=== PATIENT | female | born 1955 | race Caucasian/White ===

== ENCOUNTER → 2016-11-16 | Outpatient (CLI) | payer BC ==
[~2016-11-16] MED LIST: THYR90TA PO
[2016-11-16 13:39] LABS: BLOOD UREA NITROGEN 19 mg/dl (7-18); GLUCOSE 137 mg/dl (70-99)
[2016-11-16 13:40] LABS: ALT/SGPT 78 U/L (12-78); AST/SGOT 27 U/L (15-37); CALCIUM 10.1 mg/dl (8.5-10.1); CARBON DIOXIDE 28 mmol/L (21-32); CHLORIDE 101 mmol/L (98-107); POTASSIUM 4.1 mmol/L (3.5-5.1); SODIUM 138 mmol/L (136-145)
[2016-11-16 13:42] LABS: ALB/GLOB RATIO 0.7 (0.9-2); ALKALINE PHOSPHATASE 80 U/L (45-117)
== END | disposition home or self-care (01) ==
LOC: C.LABBC 12:00
PROVIDERS: ATTEND Internal Medicine Geriatric Medicine
DX: E11.9 Type 2 diabetes mellitus without complications (principal)

== ENCOUNTER → 2017-02-10 | Outpatient (CLI) | payer BC ==
[2017-02-10 17:39] LABS: BLOOD UREA NITROGEN 17 mg/dl (7-18); CREATININE 0.62 mg/dl (0.60-1.20); GLUCOSE 130 mg/dl (70-99)
[2017-02-10 17:40] LABS: ALKALINE PHOSPHATASE 54 U/L (45-117); ALT/SGPT 61 U/L (12-78); AST/SGOT 26 U/L (15-37); BUN/CREATININE RATIO 27.2 (10-20); CALCIUM 9.5 mg/dl (8.5-10.1); CARBON DIOXIDE 31 mmol/L (21-32); CHLORIDE 101 mmol/L (98-107); HDL CHOLESTEROL 59 mg/dl; SODIUM 138 mmol/L (136-145)
[2017-02-10 17:50] LABS: CHOLESTEROL 240 mg/dl (0-200); CHOLESTEROL/HDL RATIO 4.1; LDL CHOLESTEROL CALCULATED 144 mg/dl; TRIGLYCERIDES 183 mg/dl (0-150); VERY LOW DENSITY LIPOPROT CALC 37 mg/dl
[2017-02-11 07:06] LABS: ESTIMATED AVERAGE GLUCOSE 166 mg/dl; HA1C FLAG Normal (Normal)
== END | disposition home or self-care (01) ==
LOC: C.LABBC 13:54
PROVIDERS: ATTEND Physician Assistant Medical
DX: Z00.00 Encounter for general adult medical examination without abnormal findings (principal); E03.9 Hypothyroidism, unspecified; R74.0 Nonspecific elevation of levels of transaminase and lactic acid dehydrogenase [LDH]; E11.9 Type 2 diabetes mellitus without complications; E55.9 Vitamin D deficiency, unspecified

== ENCOUNTER → 2017-03-08 | Outpatient (CLI) | payer BC ==
--- NOTE | 2017-03-08 12:51 | DIAGNOSTIC IMAGING REPORT ---
CHEST 2 VIEWS ROUTINE CLINICAL HISTORY: J84.9 Interstitial lung [id number] COMPARISON STUDY: 03/25/2016 FINDINGS: The cardiac and mediastinal contours remain stable. There is interstitial thickening with a subpleural distribution. This remains unchanged. There is no acute parenchymal consolidation. There are no pleural effusions. There is no overt failure.[ IMPRESSION: Underlying interstitial lung disease, similar to the preceding examination. Electronically signed by: Sylvain Carver M.D. 03/08/2017 12:50 PM Dictated Date/Time: 03/08/2017 12:50 PM
== END | disposition home or self-care (01) ==
LOC: C.RADBC 12:34
PROVIDERS: ATTEND Internal Medicine
DX: J84.9 Interstitial pulmonary disease, unspecified (principal)

== ENCOUNTER → 2017-05-13 | Outpatient (CLI) | payer BC ==
[~2017-05-13] MED LIST changes: +OPTIRAY 320 IV PRN
--- NOTE | 2017-05-13 14:01 | DIAGNOSTIC IMAGING REPORT ---
(CHEST) THORAX WITH CLINICAL HISTORY: 62 years-old Female presenting with INTERSTITIAL LUNG DISEASE, cough. TECHNIQUE: Multidetector CT imaging of the chest was performed after the administration of intravenous contrast. IV contrast: 90 mL of Optiray 320. A dose lowering technique was used consistent with the principles of ALARA (as low as reasonably achievable). COMPARISON: Chest x-ray from 03/08/2017. CT DOSE (mGy.cm): The estimated cumulative dose is 319.76 mGy.cm. FINDINGS: Bench Scientist topogram: Unremarkable. On soft tissue windows, normal thyroid and thoracic inlet. Few subcentimeter mediastinal lymph nodes, possibly reactive. Atherosclerosis of the descending thoracic aorta. Normal heart size. Aortic valve and coronary artery calcification. No pericardial or pleural effusion. Hepatic steatosis suggested. Cholecystectomy clips. On lung windows, mild diffuse lung volume loss. Subpleural reticulation noted most prominently at the lung bases but also affecting the anterior portion of the lingula and right upper lobe to a significant degree. Bronchiectasis evident. On bone windows, degenerative changes of the spine. IMPRESSION: 1. Fibrotic lung disease in a subpleural distribution without convincing evidence of honeycombing at this time. Prominent groundglass opacities and subpleural sparing are lacking, although a fibrotic type nonspecific interstitial pneumonia is possible. Electronically signed by: Tray Vázquez M.D. 05/13/2017 1:59 PM Dictated Date/Time: 05/13/2017 1:52 PM
== END | disposition home or self-care (01) ==
LOC: C.CTS 13:05
PROVIDERS: ATTEND Physician Assistant
DX: J84.9 Interstitial pulmonary disease, unspecified (principal)

== ENCOUNTER → 2017-05-17 | Outpatient (CLI) | payer BC ==
[~2017-05-17] MED LIST changes: -OPTIRAY 320 IV PRN
[2017-05-23 18:17] LABS: ANTI-SS-A <1.0 NEG AI (<1.0 NEG); ANTI-SS-B <1.0 NEG AI (<1.0 NEG); ASPERGILLUS FUMIGATUS NEGATIVE (NEGATIVE); M. FAENI (S. RECTIVIRGULA) NEGATIVE (NEGATIVE); MYELOPEROXIDASE AB <1.0 AI (<1.0); PIGEON SERUM NEGATIVE (NEGATIVE); SACCHAROMONOSPORA VIRIDIS AB NEGATIVE (NEGATIVE); THERMOACTINOMYCES CANDIDUS NEGATIVE (NEGATIVE); THERMOACTINOMYCES VULGARIS NEGATIVE (NEGATIVE)
== END | disposition home or self-care (01) ==
LOC: C.LAB1850 15:45
PROVIDERS: ATTEND Physician Assistant
DX: J84.9 Interstitial pulmonary disease, unspecified (principal)

== ENCOUNTER → 2017-08-09 | Outpatient (CLI) | payer BC ==
[2017-08-09 14:26] LABS: BLOOD UREA NITROGEN 13 mg/dl (7-18); BUN/CREATININE RATIO 22.7 (10-20); CALCIUM 9.5 mg/dl (8.5-10.1); CARBON DIOXIDE 30 mmol/L (21-32); CHLORIDE 103 mmol/L (98-107); CREATININE 0.58 mg/dl (0.60-1.20); GLUCOSE 119 mg/dl (70-99); POTASSIUM 4.2 mmol/L (3.5-5.1); SODIUM 139 mmol/L (136-145)
[2017-08-09 14:36] LABS: CHOLESTEROL 231 mg/dl (0-200); CHOLESTEROL/HDL RATIO 4.4; HDL CHOLESTEROL 52 mg/dl; LDL CHOLESTEROL CALCULATED 153 mg/dl; THYROID STIMULATING HORMONE 0.263 uIu/ml (0.300-4.500); TRIGLYCERIDES 131 mg/dl (0-150); VERY LOW DENSITY LIPOPROT CALC 26 mg/dl
[2017-08-09 14:41] LABS: CREATININE RANDOM URINE 70.7 mg/dl
[2017-08-09 14:52] LABS: RATIO 10.9 mcg/mg (0-30.0)
[2017-08-10 07:36] LABS: ESTIMATED AVERAGE GLUCOSE 154 mg/dl; HA1C FLAG Normal (Normal)
== END | disposition home or self-care (01) ==
LOC: C.LABBC 11:03
PROVIDERS: ATTEND Physician Assistant Medical
DX: E11.9 Type 2 diabetes mellitus without complications (principal); E55.9 Vitamin D deficiency, unspecified; E03.9 Hypothyroidism, unspecified; E78.5 Hyperlipidemia, unspecified

== ENCOUNTER → 2018-04-05 | Outpatient (CLI) | payer OTHER | END | disposition home or self-care (01) | LOC: C.LABBC 13:02 | PROVIDERS: ATTEND Physician Assistant Medical | DX: E03.9 Hypothyroidism, unspecified (principal) ==

== ENCOUNTER → 2018-05-09 | Outpatient (CLI) | payer BC ==
[2018-05-09 14:03] LABS: HEMOGLOBIN A1C 6.7 % (4.5-5.6)
[2018-05-09 14:34] LABS: ALBUMIN 3.9 gm/dl (3.4-5.0); ALKALINE PHOSPHATASE 64 U/L (45-117); ALT/SGPT 48 U/L (12-78); AST/SGOT 21 U/L (15-37); BLOOD UREA NITROGEN 9 mg/dl (7-18); CALCIUM 9.4 mg/dl (8.5-10.1); CARBON DIOXIDE 28 mmol/L (21-32); CHOLESTEROL 223 mg/dl (0-200); CREATININE 0.57 mg/dl (0.60-1.20); GLUCOSE 112 mg/dl (70-99); LDL CHOLESTEROL CALCULATED 151 mg/dl; POTASSIUM 4.3 mmol/L (3.5-5.1); SODIUM 137 mmol/L (136-145); TOTAL PROTEIN 8.1 gm/dl (6.4-8.2)
== END | disposition home or self-care (01) ==
LOC: C.LABBC 11:06
PROVIDERS: ATTEND Physician Assistant Medical
DX: E03.9 Hypothyroidism, unspecified (principal); E78.5 Hyperlipidemia, unspecified; K76.0 Fatty (change of) liver, not elsewhere classified; E11.9 Type 2 diabetes mellitus without complications; E55.9 Vitamin D deficiency, unspecified

== ENCOUNTER 2020-09-03 14:33 | Inpatient (IN) ==
[2020-09-03] MEDS ORDERED: ALBUTEROL HFA 8 GM INHALER INH STA (15:01)
[2020-09-03] MEDS ORDERED: DEXAMETHASONE SOD INJ 10 MG/ML VIAL IV ONE (15:01)
--- NOTE | 2020-09-03 15:06 | Emergency Department Note ---
Impression & Plan Acute hypoxemic respiratory failure, Acute exacerbation of bronchiectasis, Pneumonia ED Provider Note CHIEF COMPLAINT: Shortness of breath HISTORY OF PRESENTING ILLNESS: This is a 65-year-old female who presents to the emergency department by private vehicle with a family member with complaint of shortness of breath and low oxygen saturations for the past 2 days. The patient reports a history of pulmonary fibrosis and is followed by pulmonology here. She states that she has 2 L of oxygen at home to use as needed during activities and during sleep at night, but even using her oxygen during the day she has been having oxygen saturations in the 70s and 80s at home. She states that she had a chest x-ray performed this morning as an outpatient and while she was there they noted that her oxygen levels were very low and told her to go to the ER. On arrival the patient was noted to be 71% on room air and her oxygen concentrator had run out while she was on her way here. She states she has been feeling more short of breath than usual. She denies a cough or hemoptysis. She denies any history of pulmonary embolism. She is not on blood thinner medications. She denies any chest pain, palpitations, dizziness or syncope. She states that she started feeling sick a little over a month ago, her uppers edge burnisher put her on doxycycline and a course of steroids, which she completed about 4 weeks ago. She states she felt improved, but never felt like she got completely back to normal, and started to feel worse again this past weekend. She denies any pain and rates her pain level 0/10. She denies any known exposures to COVID-19 and denies any symptoms of congestion, sore throat, loss of taste or smell, nausea, vomiting, diarrhea, or urinary symptoms. REVIEW OF SYSTEMS: A complete 10 point review of systems was reviewed with the patient with pertinent positives and negatives as per history of present illness. All else were negative. PAST MEDICAL HISTORY: Idiopathic pulmonary fibrosis, type 2 diabetes, hypothyroidism, hyperlipidemia, obstructive sleep apnea SOCIAL HISTORY: Lives at home with family, she is a former smoker and also uses medical marijuana ALLERGIES: No known drug allergies PHYSICAL EXAM: CONSTITUTIONAL: Pleasant and cooperative. Nontoxic-appearing and in no acute distress. Mildly dehydrated, but otherwise well appearing and well nourished. HEENT: Normocephalic, atraumatic. PERRL, EOMI. TMs normal. Pharynx normal. Tacky mucous membranes. NECK: Supple, full active range of motion without discomfort. No cervical adenopathy. RESPIRATORY: Diminished bilaterally with diffuse coarse rhonchi and scant wheezing, no stridor. Mildly tachypneic with some accessory muscle use. Equal expansion bilaterally. CARDIOVASCULAR: Tachycardic, regular rhythm with no murmurs, rubs or gallops. Normal peripheral perfusion, 2+ distal pulses in all 4 extremities. No pitting edema. GASTROINTESTINAL: Soft, nontender, nondistended. No palpable masses or HSM. Bowel sounds present in all quadrants. No CVA tenderness bilaterally. MUSCULOSKELETAL: Full range of motion of all joints without discomfort. INTEGUMENTARY: No rash or other significant dermatologic conditions noted. NEUROLOGIC: Alert and oriented X 4 with normal affect. Normal strength and sen sation in all 4 extremities. Normal speech. Normal gait observed. ED COURSE AND MEDICAL DECISION MAKING: CC: Patient presenting with complaint of shortness of breath DIFFERENTIAL DIAGNOSIS: Includes, but not limited to viral URI, bronchitis, pneumonia, pulmonary fibrosis, influenza, COVID-19, pulmonary embolism, acute coronary syndrome, pneumothorax, hemothorax, pulmonary edema, among others. INTERPRETATION OF LABS: Leukocytosis with left shift, no anemia, normal platelets, no significant electrolyte abnormalities, normal renal function, normal liver enzymes. Troponin undetectable. D-dimer is elevated, coagulation factors otherwise within normal limits. VBG within normal limits. Lactate normal. Procalcitonin normal. UA shows 4+ ketones, negative for infection. Influenza A/B is negative. SARS-CoV-2 RNA test is negative. IMAGING: CHEST CTA for PULMONARY ARTERIES CT DOSE: 350.47 mGy.cm HISTORY: Dyspnea, hypoxia, hx pulm fibrosis TECHNIQUE: Multiaxial CT images of the chest were performed following the intravenous administration of contrast to evaluate the pulmonary arteries. Maximal intensity projection images were also obtained. A dose lowering technique was utilized adhering to the principles of ALARA. COMPARISON STUDY: Chest CT 03/18/2020. FINDINGS: Normal caliber thoracic aorta with no evidence for dissection. The heart is normal in size. No pleural or pericardial effusions. Moderate coronary artery calcifications are noted. Dilated main pulmonary artery consistent with premenstrual hypertension. This measures up to 3.7 cm in diameter. No filling de fects within the pulmonary arteries to suggest pulmonary embolus. Mild mediastinal lymphadenopathy has progressed. There is also bilateral hilar lymphadenopathy which has increased in size. Dominant left hilar lymph node measures 1.6 cm, previous measuring 1.1 cm. Hepatic steatosis. The visualized s pleen is unremarkable. Normal caliber esophagus. No pleural or pericardial effusions. No suspicious lytic or blastic osseous lesions. No pneumothorax. The central airways are patent. Diffuse bronchiectasis persists. Subpleural reticulation and low lung volumes consistent with the patient's known pulmonary fibrosis. There is been interval progression of the near diffuse groundglass airspace opacities most pronounced within the lower lung zones. IMPRESSION: 1. No evidence for pulmonary embolus. 2. Significant progression of the near diffuse groundglass airspace opacities most pronounced within the lower lung zones. This is concerning for superimposed acute pneumonitis on the background of chronic fibrotic change. A viral pneumonia would be the diagnosis of exclusion. 3. Interval progression of the mediastinal and bilateral hilar lymphadenopathy. This may be reactive to the suspected pneumonia. EKG: Shows sinus tachycardia with a rate of 112 bpm, normal intervals, no ST depression or elevation, no ectopy, no significant change when compared to previous EKG from 03/17/2016 by my interpretation. MEDICATION RECONCILIATION: I attest that I have personally reviewed the patient's current medication list. INITIAL VITAL SIGNS REVIEW: I reviewed the patient's initial vital signs and interpret them as follows: T: Afebrile; BP: Normotensive; HR: Tachycardic; RR: Tachypneic; Pulse Ox: Hypoxic on room air. MDM SUMMARY: Patient was evaluated at bedside, history and physical exam performed. Patient is alert and oriented, in no acute distress, resting calmly in the stretcher. She does appear to have mild tachypnea and is noted to be hypoxic on arrival, she is currently 96% on 5 L nasal cannula and she states her breathing is more comfortable now that she is resting. Coarse lung sounds throughout, diminished in the bases. She denies any chest pain, fevers or chills. She denies any concerns for COVID- 19. Cardiac monitoring: An order was placed for continuous cardiac monitoring. The monitor shows a rate of 122 bpm with sinus tachycardia rhythm. EKG reviewed at bedside noting sinus tachycardia without any ischemic changes. I did review the patient's chart noting a chest x-ray from earlier today, which shows slight interval increase in her pulmonary fibrosis but no definite consolidation to suggest pneumonia. Orders were placed for labs including CBC, CMP, coagulation factors, troponin, D-dimer, blood cultures x2, lactate, procalcitonin, influenza A/B and COVID-19, VBG, UA, IV fluid bolus for hydration, albuterol inhaler, IV Decadron 6 mg, and CTA of the chest to evaluate for possible PE versus pneumonia versus worsening pulmonary fibrosis. Patient discussed with Dr. Mandel, who agrees with my assessment, plan, and disposition. Labs and imaging reviewed as above, labs are notable for leukocytosis with a left shift and an elevated D-dimer. VBG was within normal limits. Lactate and procalcitonin were negative. Influenza and COVID-19 testing were negative. CTA of the chest reviewed as above, no PE, but significant progression of airspace opacities concerning for an acute pneumonia. I discussed the patient with Perla, ED pharmacist, and decision was made together to place the patient on IV Rocephin and azithromycin initially for coverage of pneumonia. I spoke on the phone with Dr. Bettencourt, [facility] Hospitalist, who agrees to evaluate the patient for admission. Patient reassessed multiple times throughout ED stay, she has remained hemodynamically stable and afebrile, tachycardia is downtrending after the fluids and she has been weaned down to 3 L nasal cannula. She still is slightly tachypneic. The patient was updated on all results and plan for admission, she verbalized understanding and was agreeable to this plan. The patient was stable at time of admission. The chart was completed utilizing [employer] Speech voice recognition software. Grammatical errors, random word insertions, pronoun errors, and incomplete sentences are an occasional consequence of this system due to software limitations, ambient noise, and hardware issues. Any formal questions or concerns about the content, text, or information contained within the body of this dictation should be directly addressed to the nurse practitioner for clarification. Past Med/Surg History Medical History (Updated 09/03/20 @ 21:41 by DEONDRE Brar) Allergic rhinitis Cervical cancer screening Diabetes mellitus Elevated transaminase level Encounter for routine gynecological examination Fatty liver Hyperlipidemia Hypothyroidism Interstitial lung disease Obstructive sleep apnea Vitamin D deficiency Surgical History History of appendectomy (02/2016) Dr. Shahid History of cataract surgery History of section History of dilation and curettage History of laparoscopic cholecystectomy Hx of right hemicolectomy Family History Mother , age 62 Adenomatous polyposis coli Hyperlipidemia COPD (chronic obstructive pulmonary disease) Father , age 61 Atherosclerosis Lung cancer Brother Myocardial infarction Hyperlipidemia Diabetes FHx: mental illness Sister Cystic fibrosis Stroke Heart valve replaced Osteoporosis Social History (Updated 03/12/20 @ 14:13 by Gillian Avilez) Smoking Status: Former smoker Hx Alcohol Use: No Hx Substance Use: Yes (medical marijuana card) Preferred Language: Welsh Communication Ability: Effective Visual Impairment: Limited Hearing Ability: Normal Relay Motorman Required: No marital status: Current Living Situation: Spouse current occupational status: retired Feels Safe at Home: Yes Diet Comment: grain free Dental Care, Regularly: Yes Physical Activity Frequency: 5-6 Times per Week Seatbelt Use: always Sunscreen Use: Yes Allergies Allergies Allergy/AdvReac Type Severity Reaction Status Date / Time GRAINS Allergy Intermediate hives Uncoded 09/03/20 19:22 Home Meds Home Medications Medication Instructions Recorded Confirmed calcium polycarbophil 625 mg tablet 650 mg PO DAILY tab 01/29/19 09/03/20 guaifenesin 600 mg tablet, 600 mg PO DAILY tab 01/29/19 09/03/20 extended release 12 hr glucosamine sulfate 500 mg tablet 500 mg PO BID 02/19/19 09/03/20 magnesium 200 mg tablet 200 mg PO DAILY 02/19/19 09/03/20 turmeric 400 mg capsule 400 mg PO DAILY cap 02/19/19 09/03/20 alpha lipoic acid 300 mg capsule 300 mg PO DAILY cap 05/01/19 09/03/20 calcium carbonate 600 mg calcium 600 mg PO DAILY tab 05/01/19 09/03/20 (1,500 mg) tablet coenzyme Q10 100 mg capsule 100 mg PO DAILY cap 05/01/19 09/03/20 evening primrose oil-linoleic 1 cap PO DAILY cap 05/01/19 09/03/20 acid-gamolenic acid 1,000 mg capsule omega-3 acid ethyl esters 1 gram 1 cap PO DAILY cap 05/01/19 09/03/20 capsule cholecalciferol (vitamin D3) 50 4,000 units PO DAILY cap 07/11/19 09/03/20 mcg (2,000 unit) capsule triamcinolone acetonide 55 mcg 2 sprays INTRANASAL DAILY ml 07/11/19 09/03/20 nasal spray aerosol cetirizine [Zyrtec] 10 mg PO DAILY 09/03/20 09/03/20 glutamine 500 mg PO DAILY 09/03/20 09/03/20 lysine HCl 500 mg PO DAILY 09/03/20 09/03/20 sodium chloride 1 ml INHALATION TID 09/03/20 09/03/20 Previous Rx's Medication Instructions Recorded albuterol sulfate 90 mcg/actuation 1 puffs INH Q6H PRN #8.5 gm 02/19/20 aerosol inhaler thyroid (pork) 90 mg tablet 90 mg PO DAILY #90 tab 02/27/20 nintedanib 150 mg capsule 150 mg PO Q12H #60 cap 03/31/20 montelukast 10 mg tablet 10 mg PO QPM #90 tab 06/03/20 fluticasone furoate 200 1 inh INH DAILY #90 ea 07/14/20 mcg-vilanterol 25 mcg/dose inhalation powder ipratropium 0.5 mg-albuterol 3 mg 3 ml INH Q4H PRN #180 ml 08/01/20 (2.5 mg base)/3 mL nebulization soln doxycycline hyclate 100 mg capsule 100 mg PO BID #20 cap 09/03/20 prednisone 10 mg tablet See Rx Instructions PO DAILY #20 09/03/20 tab Results & Data (ED) Vital Signs Vital Signs - 24 hr 09/03/20 14:46 09/03/20 14:48 09/03/20 14:52 Temperature 37.1 C Temperature Source Oral Pulse Rate 124 H 109 H Pulse Rate from SpO2 Sensor 109 H Respiratory Rate 28 H 29 H Respiratory Effort / Characteristics Accessory Muscle Use Short of Breath Respiratory Depth Respiratory Pattern Blood Pressure 138/76 138/76 Blood Pressure Mean 96 100 Blood Pressure Position Sitting Pulse Oximetry 83 L 97 96 Oxygen Delivery Method Nasal Cannula Nasal Cannula Nasal Cannula Oxygen Flow Rate 4 5 5 Sepsis Recent Fever Within 48 Hours No Sepsis New/Unexplained Change in Mental Status No Sepsis Action Taken by Nursing No Action Required 09/03/20 15:30 09/03/20 15:45 09/03/20 16:01 Temperature Temperature Source Pulse Rate 110 H Pulse Rate from SpO2 Sensor 110 H Respiratory Rate 24 Respiratory Effort / Characteristics Non-Labored Respiratory Depth Normal Respiratory Pattern Regular Blood Pressure 124/58 L Blood Pressure Mean 80 Blood Pressure Position Pulse Oximetry 100 94 Oxygen Delivery Method Nasal Cannula Nasal Cannula Nasal Cannula Oxygen Flow Rate 5 4 3 Sepsis Recent Fever Within 48 Hours Sepsis New/Unexplained Change in Mental Status Sepsis Action Taken by Nursing 09/03/20 16:06 09/03/20 16:30 09/03/20 17:00 Temperature Temperature Source Pulse Rate 115 H 112 H 107 H Pulse Rate from SpO2 Sensor 114 H 112 H 107 H Respiratory Rate 26 H 29 H 33 H Respiratory Effort / Characteristics Respiratory Depth Respiratory Pattern Blood Pressure 124/58 L 119/66 116/73 Blood Pressure Mean 99 83 81 Blood Pressure Position Pulse Oximetry 97 99 98 Oxygen Delivery Method Oxygen Flow Rate Sepsis Recent Fever Within 48 Hours Sepsis New/Unexplained Change in Mental Status Sepsis Action Taken by Nursing 09/03/20 18:00 09/03/20 18:30 Temperature Temperature Source Pulse Rate 100 H 103 H Pulse Rate from SpO2 Sensor 100 H 103 H Respiratory Rate 30 H 25 H Respiratory Effort / Characteristics Respiratory Depth Respiratory Pattern Blood Pressure 116/73 128/69 Blood Pressure Mean 77 99 Blood Pressure Position Pulse Oximetry 97 97 Oxygen Delivery Method Oxygen Flow Rate 3 Sepsis Recent Fever Within 48 Hours Sepsis New/Unexplained Change in Mental Status Sepsis Action Taken by Nursing Laboratory Data Result diagrams: 09/03/20 15:27 09/03/20 15:27 Lab Results 09/03/20 09/03/20 09/03/20 Range/Units 15:21 15:21 15:21 WBC (4.8-10.8) K/uL RBC (4.2-5.4) M/uL Hgb (12.0-16.0) g/dL Hct (37-47) % MCV (80-100) fL MCH (25-34) pg MCHC (32-36) g/dL RDW Std Deviation (36.4-46.3) fL RDW Coeff of Ivanna (11.5-14.5) % Plt Count (130-400) K/uL MPV (7.4-10.4) fL Immature Gran % (Auto) % Neut % (Auto) % Lymph % (Auto) % Eddy % (Auto) % Eos % (Auto) % Baso % (Auto) % Neut # (Auto) (1.4-6.5) K/uL Lymph # (Auto) (1.2-3.4) K/uL Eddy # (Auto) (0.11-0.59) K/uL Eos # (Auto) (0-0.5) K/uL Baso # (Auto) (0-0.2) K/uL Immature Gran # (Auto) (0.00-0.02) K/uL PT (9.0-12.0) Seconds INR (0.9-1.1) APTT (21.0-31.0) Seconds PTT Ratio D-Dimer (0-500) ug/L FEU VBG pH (7.36-7.41) VBG pCO2 (38-50) mmHg VBG pO2 mmHg VBG HCO3 mmol/L VBG O2 Saturation % VBG Base Excess mEq/L Barometric Pressure mm/Hg Sodium (136-145) mmol/L Potassium (3.5-5.1) mmol/L Chloride (98-107) mmol/L Carbon Dioxide (21-32) mmol/L Anion Gap (3-11) BUN (7-18) mg/dl Creatinine (0.6-1.2) mg/dl Est Cr Clr Drug Dosing ml/min Est GFR ( Amer) Est GFR (Non-Af Amer) BUN/Creatinine Ratio (10-20) Glucose (70-99) mg/dl Lactate (0.4-2.0) mmol/L Calcium (8.5-10.1) mg/dl Total Bilirubin (0.2-1) mg/dl AST (15-37) U/L ALT (12-78) U/L Alkaline Phosphatase (45-117) U/L Troponin I (0-0.045) ng/ml Total Protein (6.4-8.2) gm/dl Albumin (3.4-5.0) gm/dl Globulin (2.5-4.0) gm/dl Albumin/Globulin Ratio (0.9-2) Procalcitonin (0-0.5) ng/ml Urine Color Urine Appearance (Clear) Urine pH (4.5-7.5) Ur Specific [place] (1.000-1.030) Urine Protein (Negative) Urine Glucose (UA) (Negative) Urine Ketones (Negative) Urine Blood (Negative) Urine Nitrite (Negative) Urine Bilirubin (Negative) Urine Urobilinogen (Negative) Ur Leukocyte Esterase (Negative) Urine WBC (Auto) (0-5) /hpf Urine RBC (Auto) (0-4) /hpf U Hyaline Cast (Auto) (0-5) /lpf U Epithel Cells (Auto) (0-5) /lpf Urine Bacteria (Auto) (Negative) COVID-19 Eval [facility] Influ A Molecular Assay Negative (Negative) Influ B Molecular Assay Negative (Negative) SARS-CoV-2, RNA, NAAT NEGATIVE (NEGATIVE) 09/03/20 09/03/20 09/03/20 Range/Units 15:27 15:27 15:27 WBC 12.76 H (4.8-10.8) K/uL RBC 4.93 (4.2-5.4) M/uL Hgb 14.0 (12.0-16.0) g/dL Hct 42.5 (37-47) % MCV 86.2 (80-100) fL MCH 28.4 (25-34) pg MCHC 32.9 (32-36) g/dL RDW Std Deviation 44.4 (36.4-46.3) fL RDW Coeff of Ivanna 14.0 (11.5-14.5) % Plt Count 364 (130-400) K/uL MPV 9.8 (7.4-10.4) fL Immature Gran % (Auto) 0.2 % Neut % (Auto) 79.9 % Lymph % (Auto) 11.1 % Eddy % (Auto) 7.4 % Eos % (Auto) 1.2 % Baso % (Auto) 0.2 % Neut # (Auto) 10.20 H (1.4-6.5) K/uL Lymph # (Auto) 1.42 (1.2-3.4) K/uL Eddy # (Auto) 0.95 H (0.11-0.59) K/uL Eos # (Auto) 0.15 (0-0.5) K/uL Baso # (Auto) 0.02 (0-0.2) K/uL Immature Gran # (Auto) 0.02 (0.00-0.02) K/uL PT 11.6 (9.0-12.0) Seconds INR 1.1 (0.9-1.1) APTT 31.0 (21.0-31.0) Seconds PTT Ratio 1.1 D-Dimer 650 H* (0-500) ug/L FEU VBG pH (7.36-7.41) VBG pCO2 (38-50) mmHg VBG pO2 mmHg VBG HCO3 mmol/L VBG O2 Saturation % VBG Base Excess mEq/L Barometric Pressure mm/Hg Sodium 136 (136-145) mmol/L Potassium 4.2 (3.5-5.1) mmol/L Chloride 100 (98-107) mmol/L Carbon Dioxide 31 (21-32) mmol/L Anion Gap 5.0 (3-11) BUN 10 (7-18) mg/dl Creatinine 0.63 (0.6-1.2) mg/dl Est Cr Clr Drug Dosing 86.9 ml/min Est GFR ( Amer) 107.6 Est GFR (Non-Af Amer) 92.8 BUN/Creatinine Ratio 16.1 (10-20) Glucose 134 H (70-99) mg/dl Lactate (0.4-2.0) mmol/L Calcium 9.3 (8.5-10.1) mg/dl Total Bilirubin 0.5 (0.2-1) mg/dl AST 24 (15-37) U/L ALT 26 (12-78) U/L Alkaline Phosphatase 49 (45-117) U/L Troponin I < 0.015 (0-0.045) ng/ml Total Protein 8.4 H (6.4-8.2) gm/dl Albumin 3.5 (3.4-5.0) gm/dl Globulin 4.9 H (2.5-4.0) gm/dl Albumin/Globulin Ratio 0.7 L (0.9-2) Procalcitonin (0-0.5) ng/ml Urine Color Urine Appearance (Clear) Urine pH (4.5-7.5) Ur Specific [place] (1.000-1.030) Urine Protein (Negative) Urine Glucose (UA) (Negative) Urine Ketones (Negative) Urine Blood (Negative) Urine Nitrite (Negative) Urine Bilirubin (Negative) Urine Urobilinogen (Negative) Ur Leukocyte Esterase (Negative) Urine WBC (Auto) (0-5) /hpf Urine RBC (Auto) (0-4) /hpf U Hyaline Cast (Auto) (0-5) /lpf U Epithel Cells (Auto) (0-5) /lpf Urine Bacteria (Auto) (Negative) COVID-19 Eval Order Influ A Molecular Assay (Negative) Influ B Molecular Assay (Negative) SARS-CoV-2, RNA, NAAT (NEGATIVE) 09/03/20 09/03/20 09/03/20 Range/Units 15:27 15:27 16:00 WBC (4.8-10.8) K/uL RBC (4.2-5.4) M/uL Hgb (12.0-16.0) g/dL Hct (37-47) % MCV (80-100) fL MCH (25-34) pg MCHC (32-36) g/dL RDW Std Deviation (36.4-46.3) fL RDW Coeff of Ivanna (11.5-14.5) % Plt Count (130-400) K/uL MPV (7.4-10.4) fL Immature Gran % (Auto) % Neut % (Auto) % Lymph % (Auto) % Eddy % (Auto) % Eos % (Auto) % Baso % (Auto) % Neut # (Auto) (1.4-6.5) K/uL Lymph # (Auto) (1.2-3.4) K/uL Eddy # (Auto) (0.11-0.59) K/uL Eos # (Auto) (0-0.5) K/uL Baso # (Auto) (0-0.2) K/uL Immature Gran # (Auto) (0.00-0.02) K/uL PT (9.0-12.0) Seconds INR (0.9-1.1) APTT (21.0-31.0) Seconds PTT Ratio D-Dimer (0-500) ug/L FEU VBG pH 7.40 (7.36-7.41) VBG pCO2 49 (38-50) mmHg VBG pO2 35 mmHg VBG HCO3 30 mmol/L VBG O2 Saturation 65.5 % VBG Base Excess 3.8 mEq/L Barometric Pressure 735.5 mm/Hg Sodium (136-145) mmol/L Potassium (3.5-5.1) mmol/L Chloride (98-107) mmol/L Carbon Dioxide (21-32) mmol/L Anion Gap (3-11) BUN (7-18) mg/dl Creatinine (0.6-1.2) mg/dl Est Cr Clr Drug Dosing ml/min Est GFR ( Amer) Est GFR (Non-Af Amer) BUN/Creatinine Ratio (10-20) Glucose (70-99) mg/dl Lactate (0.4-2.0) mmol/L Calcium (8.5-10.1) mg/dl Total Bilirubin (0.2-1) mg/dl AST (15-37) U/L ALT (12-78) U/L Alkaline Phosphatase (45-117) U/L Troponin I (0-0.045) ng/ml Total Protein (6.4-8.2) gm/dl Albumin (3.4-5.0) gm/dl Globulin (2.5-4.0) gm/dl Albumin/Globulin Ratio (0.9-2) Procalcitonin < 0.05 (0-0.5) ng/ml Urine Color Dark Yellow Urine Appearance Clear (Clear) Urine pH 5.0 (4.5-7.5) Ur Specific [place] 1.029 (1.000-1.030) Urine Protein 1+ H (Negative) Urine Glucose (UA) Negative (Negative) Urine Ketones 4+ H (Negative) Urine Blood Negative (Negative) Urine Nitrite Negative (Negative) Urine Bilirubin Negative (Negative) Urine Urobilinogen Negative (Negative) Ur Leukocyte Esterase Negative (Negative) Urine WBC (Auto) 1-5 (0-5) /hpf Urine RBC (Auto) 0-4 (0-4) /hpf U Hyaline Cast (Auto) 5-10 H (0-5) /lpf U Epithel Cells (Auto) 20-30 H (0-5) /lpf Urine Bacteria (Auto) Negative (Negative) COVID-19 Eval Order Influ A Molecular Assay (Negative) Influ B Molecular Assay (Negative) SARS-CoV-2, RNA, NAAT (NEGATIVE) 09/03/20 Range/Units 17:35 WBC (4.8-10.8) K/uL RBC (4.2-5.4) M/uL Hgb (12.0-16.0) g/dL Hct (37-47) % MCV (80-100) fL MCH (25-34) pg MCHC (32-36) g/dL RDW Std Deviation (36.4-46.3) fL RDW Coeff of Ivanna (11.5-14.5) % Plt Count (130-400) K/uL MPV (7.4-10.4) fL Immature Gran % (Auto) % Neut % (Auto) % Lymph % (Auto) % Eddy % (Auto) % Eos % (Auto) % Baso % (Auto) % Neut # (Auto) (1.4-6.5) K/uL Lymph # (Auto) (1.2-3.4) K/uL Eddy # (Auto) (0.11-0.59) K/uL Eos # (Auto) (0-0.5) K/uL Baso # (Auto) (0-0.2) K/uL Immature Gran # (Auto) (0.00-0.02) K/uL PT (9.0-12.0) Seconds INR (0.9-1.1) APTT (21.0-31.0) Seconds PTT Ratio D-Dimer (0-500) ug/L FEU VBG pH (7.36-7.41) VBG pCO2 (38-50) mmHg VBG pO2 mmHg VBG HCO3 mmol/L VBG O2 Saturation % VBG Base Excess mEq/L Barometric Pressure mm/Hg Sodium (136-145) mmol/L Potassium (3.5-5.1) mmol/L Chloride (98-107) mmol/L Carbon Dioxide (21-32) mmol/L Anion Gap (3-11) BUN (7-18) mg/dl Creatinine (0.6-1.2) mg/dl Est Cr Clr Drug Dosing ml/min Est GFR ( Amer) Est GFR (Non-Af Amer) BUN/Creatinine Ratio (10-20) Glucose (70-99) mg/dl Lactate 0.7 (0.4-2.0) mmol/L Calcium (8.5-10.1) mg/dl Total Bilirubin (0.2-1) mg/dl AST (15-37) U/L ALT (12-78) U/L Alkaline Phosphatase (45-117) U/L Troponin I (0-0.045) ng/ml Total Protein (6.4-8.2) gm/dl Albumin (3.4-5.0) gm/dl Globulin (2.5-4.0) gm/dl Albumin/Globulin Ratio (0.9-2) Procalcitonin (0-0.5) ng/ml Urine Color Urine Appearance (Clear) Urine pH (4.5-7.5) Ur Specific [place] (1.000-1.030) Urine Protein (Negative) Urine Glucose (UA) (Negative) Urine Ketones (Negative) Urine Blood (Negative) Urine Nitrite (Negative) Urine Bilirubin (Negative) Urine Urobilinogen (Negative) Ur Leukocyte Esterase (Negative) Urine WBC (Auto) (0-5) /hpf Urine RBC (Auto) (0-4) /hpf U Hyaline Cast (Auto) (0-5) /lpf U Epithel Cells (Auto) (0-5) /lpf Urine Bacteria (Auto) (Negative) COVID-19 Eval Order Influ A Molecular Assay (Negative) Influ B Molecular Assay (Negative) SARS-CoV-2, RNA, NAAT (NEGATIVE) Administered Medications Albuterol (Albut/Ipratrop 3mg/0.5mg Neb 3 Ml Vial) 3 ml NEB Q4R [facility] Stop: 10/03/20 22:59 Last Admin: 09/03/20 21:36 Dose: 3 ml Documented by: Discontinued Medications Albuterol (Albuterol Hfa 8 Gm Inhaler) 4 puffs INH NOW STA Stop: 09/03/20 15:02 Last Admin: 09/03/20 16:00 Dose: 4 puffs Documented by: [id number] Albuterol (Albut/Ipratrop 3mg/0.5mg Neb 3 Ml Vial) Confirm Administered Dose 3 ml .ROUTE .STK-MED ONE Stop: 09/03/20 21:34 Last Admin: 09/03/20 21:40 Dose: Not Given Documented by: Dexamethasone (Dexamethasone Sod Inj 10 Mg/Ml Vial) 6 mg IV NOW ONE Stop: 09/03/20 15:02 Last Admin: 09/03/20 16:00 Dose: 6 mg Documented by: [id number] Sodium Chloride (Nss) 500 mls @ 999 mls/hr IV .Q31M [facility] Stop: 09/03/20 15:45 Last Infusion: 09/03/20 16:13 Dose: 0 mls/hr Documented by: [id number] Admin: 09/03/20 15:40 Dose: 999 mls/hr Documented by: [id number] Ceftriaxone Sodium (Rocephin) 1,000 mg in 50 mls @ 100 mls/hr IV NOW STA Stop: 09/03/20 17:12 Last Infusion: 09/03/20 18:24 Dose: 0 mls/hr Documented by: [id number] Admin: 09/03/20 17:54 Dose: 100 mls/hr Documented by: [id number] Azithromycin 500 mg/ Dextrose 255 mls @ 127.5 mls/hr IV NOW STA Stop: 09/03/20 18:42 Last Admin: 09/03/20 18:28 Dose: 127.5 mls/hr Documented by: [id number] Ioversol (Optiray 320 125ml) 118 ml IV ONCE ONE Stop: 09/03/20 18:16 Last Admin: 09/03/20 18:15 Dose: 118 ml Documented by: [id number] Discharge Plan Visit Data Chief Complaint: Shortness of Breath/Dyspnea Stated Complaint: SOB,POSSIBLE PNEUMONIA ED Provider: Braden Mandel ED Midlevel Provider: Mer Lozano Discharge Problem: Acute hypoxemic respiratory failure, Acute exacerbation of bronchiectasis, Pneumonia Patient Disposition: Admitted As Inpatient Condition: Good Forms Stand Alone Forms: [facility] Prescriptions Prescriptions: No Action albuterol sulfate [ProAir HFA] 90 mcg/actuation HFA aerosol inhaler 1 puffs INH Q6H PRN (Reason: shortness of breath or wheezing) Qty: 8.5 RF: 3 thyroid (pork) 90 mg tablet 90 mg PO DAILY Qty: 90 RF: 3 montelukast 10 mg tablet 10 mg PO QPM Qty: 90 RF: 3 Breo Ellipta 200-25 mcg/dose blister with device 1 inh INH DAILY Qty: 90 RF: 3 ipratropium-albuterol 0.5 mg-3 mg(2.5 mg base)/3 mL solution for nebulization 3 ml INH Q4H PRN (Reason: wheezing) Qty: 180 RF: 2 doxycycline hyclate 100 mg capsule 100 mg PO BID Qty: 20 RF: 0 prednisone 10 mg tablet See Rx Instructions PO DAILY Qty: 20 RF: 0 alpha lipoic acid 300 mg capsule 300 mg PO DAILY RF: 0 calcium carbonate 600 mg calcium (1,500 mg) tablet 600 mg PO DAILY RF: 0 omega-3 acid ethyl esters 1 gram capsule 1 cap PO DAILY RF: 0 coenzyme Q10 100 mg capsule 100 mg PO DAILY RF: 0 patricio veeu-ksyxbtps-ehwoebaky ac 1,000 mg capsule 1 cap PO DAILY RF: 0 calcium polycarbophil 625 mg tablet 650 mg PO DAILY RF: 0 guaifenesin 600 mg tablet extended release 12hr 600 mg PO DAILY RF: 0 turmeric 400 mg capsule 400 mg PO DAILY RF: 0 glucosamine sulfate [Glucosamine] 500 mg tablet 500 mg PO BID RF: 0 magnesium 200 mg tablet 200 mg PO DAILY RF: 0 cholecalciferol (vitamin D3) 2,000 unit capsule 4,000 units PO DAILY RF: 0 triamcinolone acetonide 55 mcg aerosol,spray 2 sprays intranasal DAILY RF: 0 Ofev 150 mg capsule 150 mg PO Q12H Qty: 60 RF: 2 lysine HCl 500 mg Capsule 500 mg PO DAILY RF: 0 Zyrtec 10 mg Tablet,Disintegrating 10 mg PO DAILY RF: 0 sodium chloride 7 % solution for nebulization 1 ml INHALATION TID RF: 0 glutamine 500 mg Capsule 500 mg PO DAILY RF: 0 Referrals Referrals: Tray Doherty MD [Primary Care Provider] - Discharge Problem: Pneumonia Qualifiers: Pneumonia type: due to unspecified organism Laterality: unspecified laterality Lung location: unspecified part of lung Qualified Code(s): J18.9 - Pneumonia, unspecified organism
[2020-09-03] MEDS ORDERED: SODIUM CHLORIDE 0.9% 500 ML IV SCH (15:15)
[2020-09-03 15:40] LABS: Base Excess VBG 3.8 mEq/L; Oxygen Saturation VBG 65.5 %; pH VBG 7.4 (7.36-7.41)
[2020-09-03 15:54] LABS: Basophils # (auto) 0.02 K/uL (0-0.2); Basophils % (auto) 0.2 %; Eosinophils # (auto) 0.15 K/uL (0-0.5); Eosinophils % (auto) 1.2 %; Hematocrit (blood only) 42.5 % (37-47); Immature Granulocytes # (auto) 0.02 K/uL (0.00-0.02); Immature Granulocytes % (auto) 0.2 %; Lymphocytes # (auto) 1.42 K/uL (1.2-3.4); Lymphocytes % (auto) 11.1 %; Mean Corpuscular Hemoglobin 28.4 pg (25-34); Mean Corpuscular Hgb Conc 32.9 g/dL (32-36); Mean Corpuscular Volume 86.2 fL (80-100); Mean Platelet Volume 9.8 fL (7.4-10.4); Monocytes # (auto) 0.95 K/uL (0.11-0.59); Monocytes % (auto) 7.4 %; Neutrophils % (auto) 79.9 %; Platelet Count 364 K/uL (130-400); RDW Standard Deviation 44.4 fL (36.4-46.3); Red Blood Count 4.93 M/uL (4.2-5.4); White Blood Count 12.76 K/uL (4.8-10.8)
[2020-09-03 16:05] LABS: Albumin Level 3.5 gm/dl (3.4-5.0); BUN Creatinine Ratio 16.1 (10-20); Blood Urea Nitrogen 10 mg/dl (7-18); Calcium 9.3 mg/dl (8.5-10.1); Carbon Dioxide 31 mmol/L (21-32); Chloride 100 mmol/L (98-107); Creatinine Clr Calc Pharmacy 86.9 ml/min; Est GFR (African American) 107.6; Est GFR (Non-African American) 92.8; Glucose 134 mg/dl (70-99); Potassium 4.2 mmol/L (3.5-5.1); Sodium 136 mmol/L (136-145)
[2020-09-03 16:08] LABS: Influenza A virus by PCR Negative (Negative); Influenza B virus by PCR Negative (Negative)
[2020-09-03 16:08] LABS: INR 1.1 (0.9-1.1); Partial Thromboplastin Ratio 1.1; Prothrombin Time 11.6 Seconds (9.0-12.0)
[2020-09-03 16:10] LABS: Alanine Aminotransferase 26 U/L (12-78); Albumin Globulin Ratio 0.7 (0.9-2); Alkaline Phosphatase 49 U/L (45-117); Aspartate Aminotransferase 24 U/L (15-37); Bilirubin,Total 0.5 mg/dl (0.2-1); Globulin 4.9 gm/dl (2.5-4.0); Total Protein 8.4 gm/dl (6.4-8.2); Troponin I < 0.015 ng/ml (0-0.045)
[2020-09-03 16:12] LABS: D Dimer 650 ug/L FEU (0-500)
[2020-09-03] MEDS ORDERED: cefTRIAXone SODIUM 1,000 MG/50 ML BAG IV STA (16:43)
[2020-09-03] MEDS ORDERED: AZITHROMYCIN 500 MG in DEXTROSE 5% 250 ML IV STA (16:43)
[2020-09-03 17:06] LABS: Appearance Urine Clear (Clear); Bacteria Urine Automated Negative (Negative); Bilirubin Urine Negative (Negative); Blood Urine Negative (Negative); Color Urine Dark Yellow; Epithelial Cell Urine Auto 20-30 /lpf (0-5); Glucose Urine UA Negative (Negative); Ketones Urine 4+ (Negative); Leukocyte Esterase Urine Negative (Negative); Nitrite Urine Negative (Negative); Protein Urine 1+ (Negative); RBC Urine Automated 0-4 /hpf (0-4); Specific Gravity Urine 1.029 (1.000-1.030); Urobilinogen Urine Negative (Negative)
[2020-09-03] MEDS ORDERED: OPTIRAY 320 125ml IV ONE (18:15)
--- NOTE | 2020-09-03 18:41 | CT Scan Report ---
CHEST CTA for PULMONARY ARTERIES CT DOSE: 350.47 mGy.cm HISTORY: Dyspnea, hypoxia, hx pulm fibrosis TECHNIQUE: Multiaxial CT images of the chest were performed following the intravenous administration of contrast to evaluate the pulmonary arteries. Maximal intensity projection images were also obtaine d. A dose lowering technique was utilized adhering to the principles of ALARA. COMPARISON STUDY: Chest CT 03/18/2020. FINDINGS: Normal caliber thoracic aorta with no evidence for dissection. The heart is normal in size. No pleural or pericardial effusions. Moderate coronary artery calcifications are noted. Dilated main pulmonary artery consistent with premenstrual hypertension. This measures up to 3.7 cm in diameter. No filling defects within the pulmonary arteries to suggest pulmonary embolus. Mild mediastinal lymph adenopathy has progressed. There is also bilateral hilar lymphadenopathy which has increased in size. Dominant left hilar lymph node measures 1.6 cm, previous measuring 1.1 cm. Hepatic steatosis. The vi sualized spleen is unremarkable. Normal caliber esophagus. No pleural or pericardial effusions. No rosado spicious lytic or blastic osseous lesions. No pneumothorax. The central airways are patent. Diffuse b ronchiectasis persists. Subpleural reticulation and low lung volumes consistent with the patient's kn own pulmonary fibrosis. There is been interval progression of the near diffuse groundglass airspace o pacities most pronounced within the lower lung zones. IMPRESSION: 1. No evidence for pulmonary embolus. 2. Significant progression of the near diffuse groundglass airspace opacities most pronounced within the lower lung zones. This is concerning for superimposed acute pneumonitis on the background of parts counter representative genaro fibrotic change. A viral pneumonia would be the diagnosis of exclusion. 3. Interval progression of the mediastinal and bilateral hilar lymphadenopathy. This may be reactive to the suspected pneumonia. ACT 112: Negative or not required by law. Electronically signed by: Ryan Daniels M.D. 09/03/2020 6:40 PM
--- NOTE | 2020-09-03 19:40 | History & Physical Report ---
Date of Service September 03, 2020 Assessment & Plan (1) Acute hypoxemic respiratory failure: Patient is a 65-year-old female with a past medical history of chronic idiopathic urticaria, idiopathic pulmonary fibrosis, usual interstitial pneumonitis, allergic rhinitis, diabetes mellitus, fatty liver, hyperlipidemia, hypothyroidism, NIA who presents for evaluation of hypoxia and shortness of breath #Acute hypoxemic respiratory failure secondary to worsening idiopathic pulmonary fibrosis with a superimposed pneumonia complicated by unusual interstitial pneumonitis Patient with a recent history of worsening dyspnea on exertion, and malaise. She had contacted her outpatient physician Dr. Maria who evaluated her with a chest x-ray. Will obtain a chest x-ray, she had worsening of her symptoms causing her to present to the emergency department. In the emergency department labs demonstrated a white count with a neutrophil predominance, elevated D- dimer, and chest CT consistent with worsening idiopathic pulmonary fibrosis and a questionable superimposed infection. Given that she required 5 L of oxygen on presentation the emergency department and improved with steroids. She will be admitted for further evaluation and management of her illness. -Continuous pulse ox -Prednisone 40 mg p.o. daily -Ceftriaxone 1 g daily -Azithromycin 250 mg p.o. daily x4 days -Consult pulmonology -Follow-up blood cultures -Trend daily CBC -DuoNebs every 4 hours scheduled -Incentive spirometry -Flutter valve #Diabetes mellitus -Diet controlled, she declines medication #Hypothyroidism -Continue pork thyroid 90 mg #Allergic rhinitis -Continue Zyrtec -Continue Nasacort #Asthma Inhalers as above, continue Singulair #Obstructive sleep apnea -CPAP ordered FENa: Type II diabetic diet, 2 L of LR at 100 Code Status: Full DVT PPX: Lovenox PT/OT: Not indicated Dispo: Arnie Bettencourt MD PGY 3, FCM This chart was completed utilizing [employer] voice recognition software. Grammatical errors, random word insertions, pronoun errors, and in complete sentences are an occasional consequence of the system. Any questions or concerns about the content, text, or information contained within the body of this dictation should be addressed directly to the physician for clarification. (2) IPF (idiopathic pulmonary fibrosis): (3) UIP (usual interstitial pneumonitis): (4) Pneumonia: (5) Allergic rhinitis: (6) Diabetes mellitus: (7) Hyperlipidemia: (8) Hypothyroidism: (9) Interstitial lung disease: (10) Obstructive sleep apnea: History of Present Illness Patient is a 65-year-old female with a past medical history of chronic idiopathic urticaria, idiopathic pulmonary fibrosis, usual interstitial pneumonitis, allergic rhinitis, diabetes mellitus, fatty liver, hyperlipidemia, hypothyroidism, NIA who presents for evaluation of hypoxia and shortness of breath. The patient reports that her symptoms began Tuesday night after her CPAP broke. The next morning she woke up having increased shortness of breath, and dyspnea on exertion. She was not able to get her CPAP replaced until Tuesday of this week and endorsed worsening of her symptoms. Today the patient contacted her computer lab para professional who advised her to obtain a chest x-ray, after chest x-ray, she reported experiencing increasing shortness of breath so she proceeded to the emergency department for further evaluation. In the emergency department she became tachypneic and tachycardic with saturations dropping into the 80s, requiring 5 L of oxygen to obtain notable saturations currently she is doing well on 2 L. Patient denies any recent history of Covid exposures, fevers, however states she never gets a fever, denies nausea, vomiting, diarrhea, chest pain, chest pressure, leg swelling, other concerning constitutional symptoms. She did endorse being incredibly chilly today. In the emergency department routine labs were obtained CBC demonstrating a white count of 12.76 with a neutrophil predominance, D-dimer of 650, VBG 7.4 0/49/35/30, Chem-7 was within normal limits, glucose of 134 AST and ALT within normal limits, pro-Lopez negative, urine demonstrating 4+ ketones, Covid negative flu negative. Blood cultures were obtained and are pending chest x-ray was obtained demonstrating progression of pulmonary fibrosis since chest radiograph on February 20, 2019, chest CTA was negative for pulmonary embolus, demonstrating significant progression of diffuse groundglass airspace opacities most pronounced in the lower lung zones, concerning for superimposed acute pneumonitis on the background of chronic fibrotic changes. A viral pneumonia would be a diagnosis of exclusion. Interval progression of mediastinal and bilateral hilar lymphadenopathy. The patient will be admitted for further evaluation and management of acute acute hypoxic respiratory failure secondary to worsening of her idiopathic pulmonary fibrosis with a superimposed pneumonia. Primary Care Provider: Tray Doherty MD Allergies Allergy/AdvReac Type Severity Reaction Status Date / Time GRAINS Allergy Intermediate hives Uncoded 09/03/20 19:22 Home Medications Medication Instructions Recorded Confirmed Type calcium polycarbophil 625 mg tablet 650 mg PO DAILY tab 01/29/19 09/03/20 History guaifenesin 600 mg tablet, 600 mg PO DAILY tab 01/29/19 09/03/20 History extended release 12 hr glucosamine sulfate 500 mg tablet 500 mg PO BID 02/19/19 09/03/20 History magnesium 200 mg tablet 200 mg PO DAILY 02/19/19 09/03/20 History turmeric 400 mg capsule 400 mg PO DAILY cap 02/19/19 09/03/20 History alpha lipoic acid 300 mg capsule 300 mg PO DAILY cap 05/01/19 09/03/20 History calcium carbonate 600 mg calcium 600 mg PO DAILY tab 05/01/19 09/03/20 History (1,500 mg) tablet coenzyme Q10 100 mg capsule 100 mg PO DAILY cap 05/01/19 09/03/20 History evening primrose oil-linoleic 1 cap PO DAILY cap 05/01/19 09/03/20 History acid-gamolenic acid 1,000 mg capsule omega-3 acid ethyl esters 1 gram 1 cap PO DAILY cap 05/01/19 09/03/20 History capsule cholecalciferol (vitamin D3) 50 4,000 units PO DAILY cap 07/11/19 09/03/20 History mcg (2,000 unit) capsule triamcinolone acetonide 55 mcg 2 sprays INTRANASAL DAILY ml 07/11/19 09/03/20 History nasal spray aerosol albuterol sulfate 90 mcg/actuation 1 puffs INH Q6H PRN #8.5 gm 02/19/20 09/03/20 Rx aerosol inhaler thyroid (pork) 90 mg tablet 90 mg PO DAILY #90 tab 02/27/20 09/03/20 Rx nintedanib 150 mg capsule 150 mg PO Q12H #60 cap 03/31/20 09/03/20 Rx montelukast 10 mg tablet 10 mg PO QPM #90 tab 06/03/20 09/03/20 Rx fluticasone furoate 200 1 inh INH DAILY #90 ea 07/14/20 09/03/20 Rx mcg-vilanterol 25 mcg/dose inhalation powder ipratropium 0.5 mg-albuterol 3 mg 3 ml INH Q4H PRN #180 ml 08/01/20 09/03/20 Rx (2.5 mg base)/3 mL nebulization soln cetirizine [Zyrtec] 10 mg PO DAILY 09/03/20 09/03/20 History doxycycline hyclate 100 mg capsule 100 mg PO BID #20 cap 09/03/20 09/03/20 Rx glutamine 500 mg PO DAILY 09/03/20 09/03/20 History lysine HCl 500 mg PO DAILY 09/03/20 09/03/20 History prednisone 10 mg tablet See Rx Instructions PO DAILY #20 09/03/20 09/03/20 Rx tab sodium chloride 1 ml INHALATION TID 09/03/20 09/03/20 History Past Med/Surg History Medical History (Updated 09/03/20 @ 21:41 by DEONDRE Brar) Allergic rhinitis Cervical cancer screening Diabetes mellitus Elevated transaminase level Encounter for routine gynecological examination Fatty liver Hyperlipidemia Hypothyroidism Interstitial lung disease Obstructive sleep apnea Vitamin D deficiency Surgical History History of appendectomy (02/2016) Dr. Shahid History of cataract surgery History of section History of dilation and curettage History of laparoscopic cholecystectomy Hx of right hemicolectomy Family History Mother , age 62 Adenomatous polyposis coli Hyperlipidemia COPD (chronic obstructive pulmonary disease) Father , age 61 Atherosclerosis Lung cancer Brother Myocardial infarction Hyperlipidemia Diabetes FHx: mental illness Sister Cystic fibrosis Stroke Heart valve replaced Osteoporosis Social History (Updated 03/12/20 @ 14:13 by Gillian Avilez) Smoking Status: Former smoker Hx Alcohol Use: No Hx Substance Use: Yes (medical marijuana card) Preferred Language: Macedonian Communication Ability: Effective Visual Impairment: Limited Hearing Ability: Normal [employer]ol[employer] Management Technician Required: No marital status: Current Living Situation: Spouse current occupational status: retired Feels Safe at Home: Yes Diet Comment: grain free Dental Care, Regularly: Yes Physical Activity Frequency: 5-6 Times per Week Seatbelt Use: always Sunscreen Use: Yes Review of Systems Review of Systems: All systems reviewed & are unremarkable except as noted in HPI & below Physical Exam Physical Exam: General: In no acute distress HEENT: Normocephalic atraumatic Neck: Normal to visual inspection, trachea midline Cardiac: Regular rate and rhythm, normal S1, normal S2, negative pedal edema, negative calf tenderness, I did not appreciate any significant murmurs rubs or gallops Respiratory: Shallow breathing otherwise clear to auscultation bilaterally with symmetrical chest expansion, questionable increased work of breathing, I did not appreciate any significant wheezes, rales, rhonchi GI: Soft, nontender, nondistended, bowel sounds present in all 4 quadrants MSK: Moves all extremities Neuro: Oriented x4 Psych: Cooperative with the interview, however a bit anxious, perseverating on her CPAP, chest x-ray, and infection a long time ago. Results & Data Results & Data ([facility]) Vital Signs (Past 12 Hours) Vital Signs Temp Pulse Resp BP Pulse Ox 09/03/20 18:30 103 H 25 H 128/69 97 09/03/20 18:00 100 H 30 H 116/73 97 09/03/20 17:00 107 H 33 H 116/73 98 09/03/20 16:30 112 H 29 H 119/66 99 09/03/20 16:06 115 H 26 H 124/58 L 97 09/03/20 16:01 110 H 24 124/58 L 94 09/03/20 15:30 100 09/03/20 14:52 96 09/03/20 14:48 109 H 29 H 138/76 97 09/03/20 14:46 37.1 C 124 H 28 H 138/76 83 L Laboratory Results 09/03/20 09/03/20 09/03/20 Range/Units 17:35 16:00 15:27 WBC (4.8-10.8) K/uL RBC (4.2-5.4) M/uL Hgb (12.0-16.0) g/dL Hct (37-47) % MCV (80-100) fL MCH (25-34) pg MCHC (32-36) g/dL RDW Std Deviation (36.4-46.3) fL RDW Coeff of Ivanna (11.5-14.5) % Plt Count (130-400) K/uL MPV (7.4-10.4) fL Immature Gran % (Auto) % Neut % (Auto) % Lymph % (Auto) % [place] % (Auto) % Eos % (Auto) % Baso % (Auto) % Neut # (Auto) (1.4-6.5) K/uL Lymph # (Auto) (1.2-3.4) K/uL [place] # (Auto) (0.11-0.59) K/uL Eos # (Auto) (0-0.5) K/uL Baso # (Auto) (0-0.2) K/uL Immature Gran # (Auto) (0.00-0.02) K/uL PT (9.0-12.0) Seconds INR (0.9-1.1) APTT (21.0-31.0) Seconds PTT Ratio D-Dimer (0-500) ug/L FEU VBG pH (7.36-7.41) VBG pCO2 (38-50) mmHg VBG pO2 mmHg VBG HCO3 mmol/L VBG O2 Saturation % VBG Base Excess mEq/L Barometric Pressure mm/Hg Sodium (136-145) mmol/L Potassium (3.5-5.1) mmol/L Chloride (98-107) mmol/L Carbon Dioxide (21-32) mmol/L Anion Gap (3-11) BUN (7-18) mg/dl Creatinine (0.6-1.2) mg/dl Est Cr Clr Drug Dosing ml/min Est GFR ( Amer) Est GFR (Non-Af Amer) BUN/Creatinine Ratio (10-20) Glucose (70-99) mg/dl Lactate 0.7 (0.4-2.0) mmol/L Calcium (8.5-10.1) mg/dl Total Bilirubin (0.2-1) mg/dl AST (15-37) U/L ALT (12-78) U/L Alkaline Phosphatase (45-117) U/L Troponin I (0-0.045) ng/ml Total Protein (6.4-8.2) gm/dl Albumin (3.4-5.0) gm/dl Globulin (2.5-4.0) gm/dl Albumin/Globulin Ratio (0.9-2) Procalcitonin < 0.05 (0-0.5) ng/ml Urine Color Dark Yellow Urine Appearance Clear (Clear) Urine pH 5.0 (4.5-7.5) Ur Specific [place] 1.029 (1.000-1.030) Urine Protein 1+ H (Negative) Urine Glucose (UA) Negative (Negative) Urine Ketones 4+ H (Negative) Urine Blood Negative (Negative) Urine Nitrite Negative (Negative) Urine Bilirubin Negative (Negative) Urine Urobilinogen Negative (Negative) Ur Leukocyte Esterase Negative (Negative) Urine WBC (Auto) 1-5 (0-5) /hpf Urine RBC (Auto) 0-4 (0-4) /hpf U Hyaline Cast (Auto) 5-10 H (0-5) /lpf U Epithel Cells (Auto) 20-30 H (0-5) /lpf Urine Bacteria (Auto) Negative (Negative) COVID-19 Eval Order Influ A Molecular Assay (Negative) Influ B Molecular Assay (Negative) SARS-CoV-2, RNA, NAAT (NEGATIVE) 09/03/20 09/03/20 09/03/20 Range/Units 15:27 15:27 15:27 WBC (4.8-10.8) K/uL RBC (4.2-5.4) M/uL Hgb (12.0-16.0) g/dL Hct (37-47) % MCV (80-100) fL MCH (25-34) pg MCHC (32-36) g/dL RDW Std Deviation (36.4-46.3) fL RDW Coeff of Ivanna (11.5-14.5) % Plt Count (130-400) K/uL MPV (7.4-10.4) fL Immature Gran % (Auto) % Neut % (Auto) % Lymph % (Auto) % [place] % (Auto) % Eos % (Auto) % Baso % (Auto) % Neut # (Auto) (1.4-6.5) K/uL Lymph # (Auto) (1.2-3.4) K/uL [place] # (Auto) (0.11-0.59) K/uL Eos # (Auto) (0-0.5) K/uL Baso # (Auto) (0-0.2) K/uL Immature Gran # (Auto) (0.00-0.02) K/uL PT 11.6 (9.0-12.0) Seconds INR 1.1 (0.9-1.1) APTT 31.0 (21.0-31.0) Seconds PTT Ratio 1.1 D-Dimer 650 H* (0-500) ug/L FEU VBG pH 7.40 (7.36-7.41) VBG pCO2 49 (38-50) mmHg VBG pO2 35 mmHg VBG HCO3 30 mmol/L VBG O2 Saturation 65.5 % VBG Base Excess 3.8 mEq/L Barometric Pressure 735.5 mm/Hg Sodium 136 (136-145) mmol/L Potassium 4.2 (3.5-5.1) mmol/L Chloride 100 (98-107) mmol/L Carbon Dioxide 31 (21-32) mmol/L Anion Gap 5.0 (3-11) BUN 10 (7-18) mg/dl Creatinine 0.63 (0.6-1.2) mg/dl Est Cr Clr Drug Dosing 86.9 ml/min Est GFR ( Amer) 107.6 Est GFR (Non-Af Amer) 92.8 BUN/Creatinine Ratio 16.1 (10-20) Glucose 134 H (70-99) mg/dl Lactate (0.4-2.0) mmol/L Calcium 9.3 (8.5-10.1) mg/dl Total Bilirubin 0.5 (0.2-1) mg/dl AST 24 (15-37) U/L ALT 26 (12-78) U/L Alkaline Phosphatase 49 (45-117) U/L Troponin I < 0.015 (0-0.045) ng/ml Total Protein 8.4 H (6.4-8.2) gm/dl Albumin 3.5 (3.4-5.0) gm/dl Globulin 4.9 H (2.5-4.0) gm/dl Albumin/Globulin Ratio 0.7 L (0.9-2) Procalcitonin (0-0.5) ng/ml Urine Color Urine Appearance (Clear) Urine pH (4.5-7.5) Ur Specific [place] (1.000-1.030) Urine Protein (Negative) Urine Glucose (UA) (Negative) Urine Ketones (Negative) Urine Blood (Negative) Urine Nitrite (Negative) Urine Bilirubin (Negative) Urine Urobilinogen (Negative) Ur Leukocyte Esterase (Negative) Urine WBC (Auto) (0-5) /hpf Urine RBC (Auto) (0-4) /hpf U Hyaline Cast (Auto) (0-5) /lpf U Epithel Cells (Auto) (0-5) /lpf Urine Bacteria (Auto) (Negative) COVID-19 Eval Order Influ A Molecular Assay (Negative) Influ B Molecular Assay (Negative) SARS-CoV-2, RNA, NAAT (NEGATIVE) 09/03/20 09/03/20 09/03/20 Range/Units 15:27 15:21 15:21 WBC 12.76 H (4.8-10.8) K/uL RBC 4.93 (4.2-5.4) M/uL Hgb 14.0 (12.0-16.0) g/dL Hct 42.5 (37-47) % MCV 86.2 (80-100) fL MCH 28.4 (25-34) pg MCHC 32.9 (32-36) g/dL RDW Std Deviation 44.4 (36.4-46.3) fL RDW Coeff of Ivanna 14.0 (11.5-14.5) % Plt Count 364 (130-400) K/uL MPV 9.8 (7.4-10.4) fL Immature Gran % (Auto) 0.2 % Neut % (Auto) 79.9 % Lymph % (Auto) 11.1 % [place] % (Auto) 7.4 % Eos % (Auto) 1.2 % Baso % (Auto) 0.2 % Neut # (Auto) 10.20 H (1.4-6.5) K/uL Lymph # (Auto) 1.42 (1.2-3.4) K/uL [place] # (Auto) 0.95 H (0.11-0.59) K/uL Eos # (Auto) 0.15 (0-0.5) K/uL Baso # (Auto) 0.02 (0-0.2) K/uL Immature Gran # (Auto) 0.02 (0.00-0.02) K/uL PT (9.0-12.0) Seconds INR (0.9-1.1) APTT (21.0-31.0) Seconds PTT Ratio D-Dimer (0-500) ug/L FEU VBG pH (7.36-7.41) VBG pCO2 (38-50) mmHg VBG pO2 mmHg VBG HCO3 mmol/L VBG O2 Saturation % VBG Base Excess mEq/L Barometric Pressure mm/Hg Sodium (136-145) mmol/L Potassium (3.5-5.1) mmol/L Chloride (98-107) mmol/L Carbon Dioxide (21-32) mmol/L Anion Gap (3-11) BUN (7-18) mg/dl Creatinine (0.6-1.2) mg/dl Est Cr Clr Drug Dosing ml/min Est GFR ( Amer) Est GFR (Non-Af Amer) BUN/Creatinine Ratio (10-20) Glucose (70-99) mg/dl Lactate (0.4-2.0) mmol/L Calcium (8.5-10.1) mg/dl Total Bilirubin (0.2-1) mg/dl AST (15-37) U/L ALT (12-78) U/L Alkaline Phosphatase (45-117) U/L Troponin I (0-0.045) ng/ml Total Protein (6.4-8.2) gm/dl Albumin (3.4-5.0) gm/dl Globulin (2.5-4.0) gm/dl Albumin/Globulin Ratio (0.9-2) Procalcitonin (0-0.5) ng/ml Urine Color Urine Appearance (Clear) Urine pH (4.5-7.5) Ur Specific [place] (1.000-1.030) Urine Protein (Negative) Urine Glucose (UA) (Negative) Urine Ketones (Negative) Urine Blood (Negative) Urine Nitrite (Negative) Urine Bilirubin (Negative) Urine Urobilinogen (Negative) Ur Leukocyte Esterase (Negative) Urine WBC (Auto) (0-5) /hpf Urine RBC (Auto) (0-4) /hpf U Hyaline Cast (Auto) (0-5) /lpf U Epithel Cells (Auto) (0-5) /lpf Urine Bacteria (Auto) (Negative) COVID-19 [facility] A Molecular Assay (Negative) Influ B Molecular Assay (Negative) SARS-CoV-2, RNA, NAAT NEGATIVE (NEGATIVE) 09/03/20 Range/Units 15:21 WBC (4.8-10.8) K/uL RBC (4.2-5.4) M/uL Hgb (12.0-16.0) g/dL Hct (37-47) % MCV (80-100) fL MCH (25-34) pg MCHC (32-36) g/dL RDW Std Deviation (36.4-46.3) fL RDW Coeff of Ivanna (11.5-14.5) % Plt Count (130-400) K/uL MPV (7.4-10.4) fL Immature Gran % (Auto) % Neut % (Auto) % Lymph % (Auto) % [place] % (Auto) % Eos % (Auto) % Baso % (Auto) % Neut # (Auto) (1.4-6.5) K/uL Lymph # (Auto) (1.2-3.4) K/uL [place] # (Auto) (0.11-0.59) K/uL Eos # (Auto) (0-0.5) K/uL Baso # (Auto) (0-0.2) K/uL Immature Gran # (Auto) (0.00-0.02) K/uL PT (9.0-12.0) Seconds INR (0.9-1.1) APTT (21.0-31.0) Seconds PTT Ratio D-Dimer (0-500) ug/L FEU VBG pH (7.36-7.41) VBG pCO2 (38-50) mmHg VBG pO2 mmHg VBG HCO3 mmol/L VBG O2 Saturation % VBG Base Excess mEq/L Barometric Pressure mm/Hg Sodium (136-145) mmol/L Potassium (3.5-5.1) mmol/L Chloride (98-107) mmol/L Carbon Dioxide (21-32) mmol/L Anion Gap (3-11) BUN (7-18) mg/dl Creatinine (0.6-1.2) mg/dl Est Cr Clr Drug Dosing ml/min Est GFR ( Amer) Est GFR (Non-Af Amer) BUN/Creatinine Ratio (10-20) Glucose (70-99) mg/dl Lactate (0.4-2.0) mmol/L Calcium (8.5-10.1) mg/dl Total Bilirubin (0.2-1) mg/dl AST (15-37) U/L ALT (12-78) U/L Alkaline Phosphatase (45-117) U/L Troponin I (0-0.045) ng/ml Total Protein (6.4-8.2) gm/dl Albumin (3.4-5.0) gm/dl Globulin (2.5-4.0) gm/dl Albumin/Globulin Ratio (0.9-2) Procalcitonin (0-0.5) ng/ml Urine Color Urine Appearance (Clear) Urine pH (4.5-7.5) Ur Specific [place] (1.000-1.030) Urine Protein (Negative) Urine Glucose (UA) (Negative) Urine Ketones (Negative) Urine Blood (Negative) Urine Nitrite (Negative) Urine Bilirubin (Negative) Urine Urobilinogen (Negative) Ur Leukocyte Esterase (Negative) Urine WBC (Auto) (0-5) /hpf Urine RBC (Auto) (0-4) /hpf U Hyaline Cast (Auto) (0-5) /lpf U Epithel Cells (Auto) (0-5) /lpf Urine Bacteria (Auto) (Negative) COVID-19 Eval Order Influ A Molecular Assay Negative (Negative) Influ B Molecular Assay Negative (Negative) SARS-CoV-2, RNA, NAAT (NEGATIVE) Code Status & VTE Plan Code Status Full VTE Prophylaxis Plan VTE Prophylaxis will be ordered: Yes Supervising Physician Co-Signing Physician Notes Patient seen and examined, chart reviewed, case discussed with Dr. Bettencourt and I agree with his assessment and plan as above with exceptions below. Briefly, patient is a 65yo C female with history of Idiopathic Pulmonary Fibrosis, Bro nchiectasis, NIA. She follows with Pulmonary regularly. She had a recent issue with her CPAP machine and was without it for some a few days. She presents with worsening shortness of breath, hypoxic respiratory failure with initial saturation of 83% on 4L by NC. She had cough productive for brown sputum this morning and chest tightness - states that she is unable to take a deep breath. No fever/CP/nausea/vomiting/diarrhea. No exposure to Covid-19. Pre-admission rapid Covid antigen testing NEGATIVE as was testing for Influenza On exam she is afebrile, HD stable, NAD, speaking in complete sentences with no distress Skin - intact, no rash HEENT - NC/AT, PERRL, EOMI, Neck supple Heart - +S1/S2, regular, no m/r/g Lungs - slightly diminished breath sounds bilaterally with faint end-inspiratory crackles diffusely. No rales/rhonchi/wheezes. +Digital clubbing noted of fingers Abd - +BS, soft, NT/ND Ext - Clubbing. No edema Labs and images reviewed. +Leukocytosis with WBC=12.76 with increased neutrophils. [id number] Chest CTA with no PE. Significant progression of diffuse groundglass airspace opacities in the lower lung zones. Concerning for acute pneumonitis on chronic fibrotic change. A viral PNA would be the diagnosis of exclusion. Interval progression of mediastinal and bilateral hilar LAD. Assessment/Plan: 65yo C female with IPF, NIA presenting with acute hypoxic respiratory failure, ?PNA. Covid-19 testing is NEGATIVE and patient has had no exposure to Covid-19 -Admit to medical -Follow cultures -Empiric treatment for CAP - Ceftriaxone and Azithromycin -Prednisone 40mg po daily -Incentive Spirometry, Flutter valve -Nebs - Duonebs, Saline -Pulmonary consultation appreciated -Remainder of plan as above Resident Activity Tracking Resident Involvement: Resident Care Provided Care Provided: Adult Hospital Medicine
[2020-09-03] MEDS ORDERED: ACETAMINOPHEN 325 MG TAB PO PRN (20:21)
[2020-09-03] MEDS ORDERED: ONDANSETRON INJ 2 MG/ML 2 ML VIAL IV PRN (20:21)
[2020-09-03] MEDS ORDERED: MELATONIN 3 MG TAB PO PRN (20:23)
[2020-09-03] MEDS: ALBUT/IPRATROP 3MG/0.5MG NEB 3 ML VIAL NEB SCH (21:36)
[2020-09-03] MEDS: ALBUT/IPRATROP 3MG/0.5MG NEB 3 ML VIAL ONE ×2 (21:39→21:40)
--- NOTE | 2020-09-03 22:19 | Billing Data ---
Date of Service September 03, 2020 Coding Level of Care Code 59508 Initial Inpt Care Lvl 3
[2020-09-03] MEDS: LACTATED RINGER'S 1,000 ML IV SCH (23:05)
[2020-09-03] MEDS ORDERED: ALBUTEROL HFA 8 GM INHALER INH PRN (23:27)
[2020-09-04] MEDS: MONTELUKAST SODIUM 10 MG TABLET PO SCH ×2 (00:40→20:55)
[2020-09-04] MEDS: GLUCOSAMINE SULFATE 500 MG CAP PO SCH ×3 (00:40→20:55)
[2020-09-04] MEDS: ENOXAPARIN INJ 40 MG/0.4 ML SYR SQ SCH ×2 (00:40→20:54)
[2020-09-04] MEDS: POLYETHYLENE (MIRALAX) 17 GM PACK PO SCH ×2 (00:41→09:45)
[2020-09-04] MEDS: ALBUT/IPRATROP 3MG/0.5MG NEB 3 ML VIAL NEB SCH ×6 (03:33→23:45)
[2020-09-04 06:35] LABS: Eosinophils # (auto) 0.01 K/uL (0-0.5); Eosinophils % (auto) 0.1 %; Hematocrit (blood only) 39.8 % (37-47); Hemoglobin 12.8 g/dL (12.0-16.0); Immature Granulocytes # (auto) 0.03 K/uL (0.00-0.02); Immature Granulocytes % (auto) 0.3 %; Lymphocytes # (auto) 1.15 K/uL (1.2-3.4); Lymphocytes % (auto) 10.9 %; Mean Corpuscular Hemoglobin 28.2 pg (25-34); Mean Corpuscular Hgb Conc 32.2 g/dL (32-36); Mean Corpuscular Volume 87.7 fL (80-100); Mean Platelet Volume 9.6 fL (7.4-10.4); Monocytes # (auto) 0.98 K/uL (0.11-0.59); Monocytes % (auto) 9.3 %; Neutrophils # (auto) 8.39 K/uL (1.4-6.5); Neutrophils % (auto) 79.4 %; Platelet Count 346 K/uL (130-400); RDW Coefficient of Variation 13.9 % (11.5-14.5); Red Blood Count 4.54 M/uL (4.2-5.4); White Blood Count 10.56 K/uL (4.8-10.8)
--- NOTE | 2020-09-04 06:57 | Electrocardiogram Report ---
Test Reason : Blood Pressure : / mmHG Vent. Rate : 112 BPM Atrial Rate : 112 BPM P-R Int : 144 ms QRS Dur : 082 ms QT Int : 314 ms P-R-T Axes : 040 -23 048 degrees QTc Int : 428 ms Sinus tachycardia Possible Left atrial enlargement Borderline ECG When compared with ECG of 17-MAR-2016 20:45, No significant change was found Confirmed by Evelio Cruz ([id number]) on 09/04/2020 6:56:50 AM Referred By: ED Confirmed By:Evelio Cruz
[2020-09-04 07:04] LABS: Albumin Level 2.8 gm/dl (3.4-5.0); BUN Creatinine Ratio 18.1 (10-20); Calcium 9.3 mg/dl (8.5-10.1); Creatinine Clr Calc Pharmacy 100.1 ml/min; Est GFR (African American) 112.5; Est GFR (Non-African American) 97.1; Potassium 4.8 mmol/L (3.5-5.1)
[2020-09-04 07:07] LABS: Albumin Globulin Ratio 0.6 (0.9-2); Bilirubin,Total 0.3 mg/dl (0.2-1); Globulin 4.3 gm/dl (2.5-4.0); Total Protein 7.1 gm/dl (6.4-8.2)
[2020-09-04] MEDS: LACTATED RINGER'S 1,000 ML IV SCH ×2 (07:13→10:08)
[2020-09-04] MEDS: BUDESONIDE 0.5 MG/2 ML VIAL (PULMICORT) NEB SCH ×2 (07:48→20:04)
[2020-09-04] MEDS: SODIUM CHLOR 7% 4 ML NEB INH SCH ×3 (07:48→20:04)
[2020-09-04] MEDS ORDERED: CETIRIZINE HCL 10 MG TABLET PO SCH (09:00)
[2020-09-04] MEDS ORDERED: THYROID 90 MG PO SCH (09:00)
[2020-09-04] MEDS ORDERED: LYSINE HCL 500 MG PO SCH (09:00)
[2020-09-04] MEDS ORDERED: NON-FORMULARY MEDICATION (Coenzyme Q10 100 mg capsule) PO SCH (09:00)
[2020-09-04] MEDS ORDERED: GLUTAMINE 500 MG PO SCH (09:00)
[2020-09-04] MEDS ORDERED: [UNRECOGNIZED DRUG - OTHER] PO SCH (09:00)
[2020-09-04] MEDS ORDERED: Nursing to Pharmacy Communication SCH (09:00)
[2020-09-04] MEDS ORDERED: NON-FORMULARY MEDICATION (Turmeric 400 mg capsule) PO SCH (09:00)
[2020-09-04] MEDS ORDERED: ARMOUR THYROID 30 MG TAB PO SCH (09:00)
[2020-09-04] MEDS ORDERED: NON-FORMULARY MEDICATION (Alpha Lipoic Acid 300 mg capsule) PO SCH (09:00)
[2020-09-04] MEDS: CALCIUM POLYCARBOPHIL 625MG TAB PO SCH (09:45)
[2020-09-04] MEDS: TRIAMCINOLONE ACET NASAL SPRAY 10.8ML BTL SCH (09:46)
[2020-09-04] MEDS: guaiFENesin 600 MG TABCR PO SCH (09:47)
[2020-09-04] MEDS: CALCIUM CARBONATE 1250MG TAB PO SCH (09:47)
[2020-09-04] MEDS: MAGNESIUM OXIDE 400 MG TAB PO SCH (09:47)
[2020-09-04] MEDS: OMEGA-3 (PURIFIED FISH OIL) 1 GM CAP PO SCH (09:47)
[2020-09-04] MEDS: predniSONE 20 MG TAB PO SCH (09:48)
[2020-09-04] MEDS: CHOLECALCIFEROL 1,000 UNITS 25 MCG TAB PO SCH (09:48)
--- NOTE | 2020-09-04 10:15 | Hospitalist Progress Note ---
Date of Service September 04, 2020 Assessment & Plan (1) Acute hypoxemic respiratory failure: Patient is a 65-year-old female with a past medical history of chronic idiopathic urticaria, idiopathic pulmonary fibrosis, usual interstitial pneumonitis, allergic rhinitis, diabetes mellitus, fatty liver, hyperlipidemia, hypothyroidism, NIA who presents for evaluation of hypoxia and shortness of breath, malaise, chills Acute hypoxemic respiratory failure secondary to worsening idiopathic pulmonary fibrosis with a superimposed pneumonia complicated by unusual interstitial pneumonitis, bronchiectasis * COVID negative, flu negative, biofire negative * Ddimer negative * CT with worsening fibrosis and ?superimposed infection. WBC with left shift, improving 10.5k. no fever * Continuous pulse ox ordered to start today * Continue CAP with Ceftriaxone, Azithromycin. * Prednisone 40mg daily, Mucinex * Pulmonary consulted -- appreciate assistance * --> Additional labs ordered for ILD but possible Churg-Ann with bowel resection? Has elevated IgE in past. Follow Rheum labs * Sputum culture ordered, not done on admission * Duoneb Q4h ASAD, Sodium chloride, budesonide BID, Incentive spirometry, flutter valve * Currently 91% on 5L but had been on 6L all day (documented incorrectly as nursing states patient on 6L all day long) * ESR 37, CRP 10.6, LDH 312 -- ? for Pneumocystis infection -- will add Bactrim to cover * Blood cultures pending * Discussed with pulmonary this evening and will make patient NPO after midnight and he will discuss possible bronchoscopy with patient in AM Diabetes mellitus * Not on medications outpatient * A1c 6.3 February -- will repeat with AM labs but suspect elevated given repeated courses of steroids * Likely to -Diet controlled, she declines medication Hypothyroidism * TSH 2.February. Will repeat with AM labs * Continue pork thyroid 90 mg Allergic rhinitis * Follows locally with Dr. Soriano. On nintedanib outpatient as per Dr. 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 Takes special fiber supplement to help with diarrhea -- son to bring in for her. * continue home medications DVT Prophylaxis * Lovenox SQ -- will hold for possible bronch in AM (2) IPF (idiopathic pulmonary fibrosis): (3) UIP (usual interstitial pneumonitis): (4) Pneumonia: (5) Allergic rhinitis: (6) Diabetes mellitus: (7) Hypothyroidism: (8) Interstitial lung disease: (9) Obstructive sleep apnea: Admission and Anticipated Discharge Date Admission Date: September 03, 2020 Supervising Physician Co-Signing Physician Notes PA Supervision Note: I did not personally see or examine the patient today, but I verified all orozco points of BAIRON Giraldo's assessment and plan with the following exceptions/additions: None Subjective Patient evaluated this afternoon. Still with hypoxia but states her breathing is drastically improved from admission. States she had seen pulmonary about a month ago and was felt to have an infection, was given doxycyline and steroids and did make improvement up until this past week. Also, CPAP stopped working, and was unable to use. Delivered to her house today. Has been using for 20 years. She states she typically uses albuterol/atrovent nebulizers 1x/day but over the past two weeks has been using them 3x/daily in addition to sodium inhalations between those doses. She states she typically runs temp in the 97s and that "normal" is actually abnormal for her. She noted temp 99F prior to admission and noted she had the chills. She states she actually does not use oxygen at rest at home, and only utilizes 2L with exercise/exertion, primarily with walking up/down steps and bending over when folding laundry. Follows with allergy as well. Takes 20mg zyrtec daily and was told by her watch commander that she could take 40mg daily when allergies acting up. Had been diagnosed with pulm fibrosis per her account (suspected but no formal biopsy) approximately 3-4 years ago and has followed locally since that time. She is not sure, but feels they ran a set of labs for sarcoid and others. Currently 88-93% on 6L NC but denied increased sob with these drops when in the room. History of bowel resection several years ago. Takes special fiber supplement to help keep bowels regular. Otherwise, does have chronic diarrhea related to short gut syndrome but states she is thankful to have not eaten over the past two days and has not had much of an issue since admission. Awaiting pulmonary input this afternoon but will continue current regimen for now given her reported improvement since admission. Questions/concerns addressed at this time. Review of Systems Review of Systems: All systems reviewed & are unremarkable except as noted in HPI & below Physical Exam Constitutional: WD/WN, vitals as above no acute distress Eyes: + anicteric sclerae and PERRL ENMT: Ears: no hearing impairment Neck: trachea midline, no thyromegaly Respiratory: normal respiratory effort and + cough; no respiratory distress, no labored breathing and not tachypneic Auscultation: + crackles; no wheezes clubbing of nails noted 85-93% on 6L NC with conversation, quickly recovers Cardiovascular: RRR, no murmur, no edema Gastrointestinal (Abdomen): normal bowel sounds, soft, nontender, no hepatosplenomegaly Musculoskeletal: Head/Neck/Chest: normocephalic and head atraumatic Skin: no rashes, warm and dry Neurologic: no focal neurological deficiets noted Psychiatric: A+Ox3, euthymic affect Lymphatic: no cervical lymphadenopathy Results & Data Results & Data ([facility]) Vital Signs (Past 12 Hours) Vital Signs Temp Pulse Pulse Resp BP Pulse Ox 09/04/20 08:20 36.9 C 86 18 111/69 93 09/04/20 07:56 76 18 94 09/04/20 07:53 76 18 94 09/04/20 03:36 73 23 96 09/04/20 03:35 73 23 96 09/03/20 23:53 95 H 33 H 97 09/03/20 23:24 36.9 C 107 H 18 115/72 90 09/03/20 22:55 90 20 90 09/03/20 22:28 89 22 118/79 89 L Laboratory Results 09/04/20 09/04/20 09/04/20 Range/Units Unknown 15:16 15:16 WBC (4.8-10.8) K/uL RBC (4.2-5.4) M/uL Hgb (12.0-16.0) g/dL Hct (37-47) % MCV (80-100) fL MCH (25-34) pg MCHC (32-36) g/dL RDW Std Deviation (36.4-46.3) fL RDW Coeff of Ivanna (11.5-14.5) % Plt Count (130-400) K/uL MPV (7.4-10.4) fL Immature Gran % (Auto) % Neut % (Auto) % Lymph % (Auto) % Dunn % (Auto) % Eos % (Auto) % Baso % (Auto) % Neut # (Auto) (1.4-6.5) K/uL Lymph # (Auto) (1.2-3.4) K/uL Dunn # (Auto) (0.11-0.59) K/uL Eos # (Auto) (0-0.5) K/uL Baso # (Auto) (0-0.2) K/uL Immature Gran # (Auto) (0.00-0.02) K/uL ESR (0-21) mm/hr Sodium (136-145) mmol/L Potassium (3.5-5.1) mmol/L Chloride (98-107) mmol/L Carbon Dioxide (21-32) mmol/L Anion Gap (3-11) BUN (7-18) mg/dl Creatinine (0.6-1.2) mg/dl Est Cr Clr Drug Dosing ml/min Est GFR ( Amer) Est GFR (Non-Af Amer) BUN/Creatinine Ratio (10-20) Glucose (70-99) mg/dl POC Glucose (70-99) mg/dl Lactate (0.4-2.0) mmol/L Calcium (8.5-10.1) mg/dl Total Bilirubin (0.2-1) mg/dl AST (15-37) U/L ALT (12-78) U/L Alkaline Phosphatase (45-117) U/L Lactate Dehydrogenase (84-246) U/L Total Creatine Kinase 39 (26-192) U/L C-Reactive Protein 10.60 H (0-0.29) mg/dl NT-Pro-B Natriuret Pep 193 (0-900) pg/ml Total Protein (6.4-8.2) gm/dl Albumin (3.4-5.0) gm/dl Globulin (2.5-4.0) gm/dl Albumin/Globulin Ratio (0.9-2) Angiotensin Convert Enz Urine Color Urine Appearance (Clear) Urine pH (4.5-7.5) Ur Specific Shelby (1.000-1.030) Urine Protein (Negative) Urine Glucose (UA) (Negative) Urine Ketones (Negative) Urine Blood (Negative) Urine Nitrite (Negative) Urine Bilirubin (Negative) Urine Urobilinogen (Negative) Ur Leukocyte Esterase (Negative) Urine WBC (Auto) (0-5) /hpf Urine RBC (Auto) (0-4) /hpf U Hyaline Cast (Auto) (0-5) /lpf U Epithel Cells (Auto) (0-5) /lpf Urine Bacteria (Auto) (Negative) Rheumatoid Factor Pending Proteinase 3 (PR3) Pending Anti-Neutrophil (Flow) Pending BRYAN-1 Antibody Pending SS-A/Ro Antibody Pending SS-B/La Antibody Pending Sm (Maria) Antibody Pending [employer] Antibody Pending Scl-70 Scleroderma Ab Pending Double Strand DNA Ab Pending Anti-Centromere Ab Pending Adenovirus (PCR) Not Detected (NotDetected) B. pertussis DNA (PCR) Not Detected (NotDetected) B.parapertussis DNA PCR Not Detected (NotDetected) C. pneumoniae DNA (PCR) Not Detected (NotDetected) Coronavirus OC43 (PCR) Not Detected (NotDetected) Coronavirus HKU1 (PCR) Not Detected (NotDetected) Coronavirus 229E (PCR) Not Detected (NotDetected) SARS-CoV-2 (PCR) Not Detected (NotDetected) Coronavirus NL63 (PCR) Not Detected (NotDetected) Human Metapneumovir PCR Not Detected (NotDetected) Influenza Type A (PCR) Not Detected (NotDetected) Influenza Type B (PCR) Not Detected (NotDetected) M. pneumoniae (PCR) Not Detected (NotDetected) Parainfluenza 1 (PCR) Not Detected (NotDetected) Parainfluenza 2 (PCR) Not Detected (NotDetected) Parainfluenza 3 (PCR) Not Detected (NotDetected) Parainfluenza 4 (PCR) Not Detected (NotDetected) RSV (PCR) Not Detected (NotDetected) Entero/Rhino (PCR) Not Detected (NotDetected) 09/04/20 09/04/20 09/04/20 Range/Units 15:16 13:21 08:22 WBC (4.8-10.8) K/uL RBC (4.2-5.4) M/uL Hgb (12.0-16.0) g/dL Hct (37-47) % MCV (80-100) fL MCH (25-34) pg MCHC (32-36) g/dL RDW Std Deviation (36.4-46.3) fL RDW Coeff of Ivanna (11.5-14.5) % Plt Count (130-400) K/uL MPV (7.4-10.4) fL Immature Gran % (Auto) % Neut % (Auto) % Lymph % (Auto) % Dunn % (Auto) % Eos % (Auto) % Baso % (Auto) % Neut # (Auto) (1.4-6.5) K/uL Lymph # (Auto) (1.2-3.4) K/uL Dunn # (Auto) (0.11-0.59) K/uL Eos # (Auto) (0-0.5) K/uL Baso # (Auto) (0-0.2) K/uL Immature Gran # (Auto) (0.00-0.02) K/uL ESR (0-21) mm/hr Sodium (136-145) mmol/L Potassium (3.5-5.1) mmol/L Chloride (98-107) mmol/L Carbon Dioxide (21-32) mmol/L Anion Gap (3-11) BUN (7-18) mg/dl Creatinine (0.6-1.2) mg/dl Est Cr Clr Drug Dosing ml/min Est GFR ( Amer) Est GFR (Non-Af Amer) BUN/Creatinine Ratio (10-20) Glucose (70-99) mg/dl POC Glucose 140 H (70-99) mg/dl Lactate (0.4-2.0) mmol/L Calcium (8.5-10.1) mg/dl Total Bilirubin (0.2-1) mg/dl AST (15-37) U/L ALT (12-78) U/L Alkaline Phosphatase (45-117) U/L Lactate Dehydrogenase 312 H (84-246) U/L Total Creatine Kinase (26-192) U/L C-Reactive Protein (0-0.29) mg/dl NT-Pro-B Natriuret Pep (0-900) pg/ml Total Protein (6.4-8.2) gm/dl Albumin (3.4-5.0) gm/dl Globulin (2.5-4.0) gm/dl Albumin/Globulin Ratio (0.9-2) Angiotensin Convert Enz Pending Urine Color Urine Appearance (Clear) Urine pH (4.5-7.5) Ur Specific Shelby (1.000-1.030) Urine Protein (Negative) Urine Glucose (UA) (Negative) Urine Ketones (Negative) Urine Blood (Negative) Urine Nitrite (Negative) Urine Bilirubin (Negative) Urine Urobilinogen (Negative) Ur Leukocyte Esterase (Negative) Urine WBC (Auto) (0-5) /hpf Urine RBC (Auto) (0-4) /hpf U Hyaline Cast (Auto) (0-5) /lpf U Epithel Cells (Auto) (0-5) /lpf Urine Bacteria (Auto) (Negative) Rheumatoid Factor Proteinase 3 (PR3) Anti-Neutrophil (Flow) BRYAN-1 Antibody SS-A/Ro Antibody SS-B/La Antibody Sm (Maria) Antibody [employer] Antibody Scl-70 Scleroderma Ab Double Strand DNA Ab Anti-Centromere Ab Adenovirus (PCR) (NotDetected) B. pertussis DNA (PCR) (NotDetected) B.parapertussis DNA PCR (NotDetected) C. pneumoniae DNA (PCR) (NotDetected) Coronavirus OC43 (PCR) (NotDetected) Coronavirus HKU1 (PCR) (NotDetected) Coronavirus 229E (PCR) (NotDetected) SARS-CoV-2 (PCR) (NotDetected) Coronavirus NL63 (PCR) (NotDetected) Human Metapneumovir PCR (NotDetected) Influenza Type A (PCR) (NotDetected) Influenza Type B (PCR) (NotDetected) M. pneumoniae (PCR) (NotDetected) Parainfluenza 1 (PCR) (NotDetected) Parainfluenza 2 (PCR) (NotDetected) Parainfluenza 3 (PCR) (NotDetected) Parainfluenza 4 (PCR) (NotDetected) RSV (PCR) (NotDetected) Entero/Rhino (PCR) (NotDetected) 09/04/20 09/04/20 09/04/20 Range/Units 06:17 06:17 06:17 WBC 10.56 (4.8-10.8) K/uL RBC 4.54 (4.2-5.4) M/uL Hgb 12.8 (12.0-16.0) g/dL Hct 39.8 (37-47) % MCV 87.7 (80-100) fL MCH 28.2 (25-34) pg MCHC 32.2 (32-36) g/dL RDW Std Deviation 45.0 (36.4-46.3) fL RDW Coeff of Ivanna 13.9 (11.5-14.5) % Plt Count 346 (130-400) K/uL MPV 9.6 (7.4-10.4) fL Immature Gran % (Auto) 0.3 % Neut % (Auto) 79.4 % Lymph % (Auto) 10.9 % Dunn % (Auto) 9.3 % Eos % (Auto) 0.1 % Baso % (Auto) 0.0 % Neut # (Auto) 8.39 H (1.4-6.5) K/uL Lymph # (Auto) 1.15 L (1.2-3.4) K/uL Dunn # (Auto) 0.98 H (0.11-0.59) K/uL Eos # (Auto) 0.01 (0-0.5) K/uL Baso # (Auto) 0.00 (0-0.2) K/uL Immature Gran # (Auto) 0.03 H (0.00-0.02) K/uL ESR 37 H (0-21) mm/hr Sodium 140 (136-145) mmol/L Potassium 4.8 (3.5-5.1) mmol/L Chloride 105 (98-107) mmol/L Carbon Dioxide 32 (21-32) mmol/L Anion Gap 3.0 (3-11) BUN 10 (7-18) mg/dl Creatinine 0.55 L (0.6-1.2) mg/dl Est Cr Clr Drug Dosing 100.1 ml/min Est GFR ( Amer) 112.5 Est GFR (Non-Af Amer) 97.1 BUN/Creatinine Ratio 18.1 (10-20) Glucose 148 H (70-99) mg/dl POC Glucose (70-99) mg/dl Lactate (0.4-2.0) mmol/L Calcium 9.3 (8.5-10.1) mg/dl Total Bilirubin 0.3 (0.2-1) mg/dl AST 18 (15-37) U/L ALT 22 (12-78) U/L Alkaline Phosphatase 42 L (45-117) U/L Lactate Dehydrogenase (84-246) U/L Total Creatine Kinase (26-192) U/L C-Reactive Protein (0-0.29) mg/dl NT-Pro-B Natriuret Pep (0-900) pg/ml Total Protein 7.1 (6.4-8.2) gm/dl Albumin 2.8 L (3.4-5.0) gm/dl Globulin 4.3 H (2.5-4.0) gm/dl Albumin/Globulin Ratio 0.6 L (0.9-2) Angiotensin Convert Enz Urine Color Urine Appearance (Clear) Urine pH (4.5-7.5) Ur Specific Shelby (1.000-1.030) Urine Protein (Negative) Urine Glucose (UA) (Negative) Urine Ketones (Negative) Urine Blood (Negative) Urine Nitrite (Negative) Urine Bilirubin (Negative) Urine Urobilinogen (Negative) Ur Leukocyte Esterase (Negative) Urine WBC (Auto) (0-5) /hpf Urine RBC (Auto) (0-4) /hpf U Hyaline Cast (Auto) (0-5) /lpf U Epithel Cells (Auto) (0-5) /lpf Urine Bacteria (Auto) (Negative) Rheumatoid Factor Proteinase 3 (PR3) Anti-Neutrophil (Flow) BRYAN-1 Antibody SS-A/Ro Antibody SS-B/La Antibody Sm (Maria) Antibody [employer] Antibody Scl-70 Scleroderma Ab Double Strand DNA Ab Anti-Centromere Ab Adenovirus (PCR) (NotDetected) B. pertussis DNA (PCR) (NotDetected) B.parapertussis DNA PCR (NotDetected) C. pneumoniae DNA (PCR) (NotDetected) Coronavirus OC43 (PCR) (NotDetected) Coronavirus HKU1 (PCR) (NotDetected) Coronavirus 229E (PCR) (NotDetected) SARS-CoV-2 (PCR) (NotDetected) Coronavirus NL63 (PCR) (NotDetected) Human Metapneumovir PCR (NotDetected) Influenza Type A (PCR) (NotDetected) Influenza Type B (PCR) (NotDetected) M. pneumoniae (PCR) (NotDetected) Parainfluenza 1 (PCR) (NotDetected) Parainfluenza 2 (PCR) (NotDetected) Parainfluenza 3 (PCR) (NotDetected) Parainfluenza 4 (PCR) (NotDetected) RSV (PCR) (NotDetected) Entero/Rhino (PCR) (NotDetected) 09/03/20 09/03/20 Range/Units 17:35 16:00 WBC (4.8-10.8) K/uL RBC (4.2-5.4) M/uL Hgb (12.0-16.0) g/dL Hct (37-47) % MCV (80-100) fL MCH (25-34) pg MCHC (32-36) g/dL RDW Std Deviation (36.4-46.3) fL RDW Coeff of Ivanna (11.5-14.5) % Plt Count (130-400) K/uL MPV (7.4-10.4) fL Immature Gran % (Auto) % Neut % (Auto) % Lymph % (Auto) % Dunn % (Auto) % Eos % (Auto) % Baso % (Auto) % Neut # (Auto) (1.4-6.5) K/uL Lymph # (Auto) (1.2-3.4) K/uL Dunn # (Auto) (0.11-0.59) K/uL Eos # (Auto) (0-0.5) K/uL Baso # (Auto) (0-0.2) K/uL Immature Gran # (Auto) (0.00-0.02) K/uL ESR (0-21) mm/hr Sodium (136-145) mmol/L Potassium (3.5-5.1) mmol/L Chloride (98-107) mmol/L Carbon Dioxide (21-32) mmol/L Anion Gap (3-11) BUN (7-18) mg/dl Creatinine (0.6-1.2) mg/dl Est Cr Clr Drug Dosing ml/min Est GFR ( Amer) Est GFR (Non-Af Amer) BUN/Creatinine Ratio (10-20) Glucose (70-99) mg/dl POC Glucose (70-99) mg/dl Lactate 0.7 (0.4-2.0) mmol/L Calcium (8.5-10.1) mg/dl Total Bilirubin (0.2-1) mg/dl AST (15-37) U/L ALT (12-78) U/L Alkaline Phosphatase (45-117) U/L Lactate Dehydrogenase (84-246) U/L Total Creatine Kinase (26-192) U/L C-Reactive Protein (0-0.29) mg/dl NT-Pro-B Natriuret Pep (0-900) pg/ml Total Protein (6.4-8.2) gm/dl Albumin (3.4-5.0) gm/dl Globulin (2.5-4.0) gm/dl Albumin/Globulin Ratio (0.9-2) Angiotensin Convert Enz Urine Color Dark Yellow Urine Appearance Clear (Clear) Urine pH 5.0 (4.5-7.5) Ur Specific Shelby 1.029 (1.000-1.030) Urine Protein 1+ H (Negative) Urine Glucose (UA) Negative (Negative) Urine Ketones 4+ H (Negative) Urine Blood Negative (Negative) Urine Nitrite Negative (Negative) Urine Bilirubin Negative (Negative) Urine Urobilinogen Negative (Negative) Ur Leukocyte Esterase Negative (Negative) Urine WBC (Auto) 1-5 (0-5) /hpf Urine RBC (Auto) 0-4 (0-4) /hpf U Hyaline Cast (Auto) 5-10 H (0-5) /lpf U Epithel Cells (Auto) 20-30 H (0-5) /lpf Urine Bacteria (Auto) Negative (Negative) Rheumatoid Factor Proteinase 3 (PR3) Anti-Neutrophil (Flow) BRYAN-1 Antibody SS-A/Ro Antibody SS-B/La Antibody Sm (Maria) Antibody [employer]ER Antibody Scl-70 Scleroderma Ab Double Strand DNA Ab Anti-Centromere Ab Adenovirus (PCR) (NotDetected) B. pertussis DNA (PCR) (NotDetected) B.parapertussis DNA PCR (NotDetected) C. pneumoniae DNA (PCR) (NotDetected) Coronavirus OC43 (PCR) (NotDetected) Coronavirus HKU1 (PCR) (NotDetected) Coronavirus 229E (PCR) (NotDetected) SARS-CoV-2 (PCR) (NotDetected) Coronavirus NL63 (PCR) (NotDetected) Human Metapneumovir PCR (NotDetected) Influenza Type A (PCR) (NotDetected) Influenza Type B (PCR) (NotDetected) M. pneumoniae (PCR) (NotDetected) Parainfluenza 1 (PCR) (NotDetected) Parainfluenza 2 (PCR) (NotDetected) Parainfluenza 3 (PCR) (NotDetected) Parainfluenza 4 (PCR) (NotDetected) RSV (PCR) (NotDetected) Entero/Rhino (PCR) (NotDetected) Diagnostic Findings CTA Chest IMPRESSION: 1. No evidence for pulmonary embolus. 2. Significant progression of the near diffuse groundglass airspace opacities most pronounced within the lower lung zones. This is concerning for superimposed acute pneumonitis on the background of chronic fibrotic change. A viral pneumonia would be the diagnosis of exclusion. 3. Interval progression of the mediastinal and bilateral hilar lymphadenopathy. This may be reactive to the suspected pneumonia. PG Care Time/CCT Total # of Minutes Spent Total Time Spent with Patient: Total time spent is greater than 50% in coordination of care (as documented) at patient's floor/unit and/or counseling patient: Coding Level of Care Code 87506 Subseq Hosp Care Lvl 3 Diagnoses Acute hypoxemic respiratory failure J96.01 IPF (idiopathic pulmonary fibrosis) J84.112 UIP (usual interstitial pneumonitis) J84.112 Pneumonia J18.9 Laterality: unspecified laterality Lung location: unspecified part of lung Pneumonia type: due to unspecified organism Allergic rhinitis J30.9 Diabetes mellitus E11.9 Hypothyroidism E03.9 Interstitial lung disease J84.9 Obstructive sleep apnea G47.33 (1) Pneumonia Laterality: unspecified laterality Lung location: unspecified part of lung Pneumonia type: due to unspecified organism Qualified Code(s): J18.9 - Pneumonia, unspecified organism
[2020-09-04 12:27] LABS: Adenovirus PCR Not Detected (NotDetected); Bordetella parapertussis PCR Not Detected (NotDetected); Bordetella pertussis PCR Not Detected (NotDetected); Chlamydia pneumoniae PCR Not Detected (NotDetected); Coronavirus 229E PCR Not Detected (NotDetected); Coronavirus CoV-2 (COVID19)PCR Not Detected (NotDetected); Coronavirus HKU1 PCR Not Detected (NotDetected); Coronavirus NL63 PCR Not Detected (NotDetected); Coronavirus OC43PCR Not Detected (NotDetected); Human Metapneumovirus PCR Not Detected (NotDetected); Influenza A PCR Not Detected (NotDetected); Influenza B PCR Not Detected (NotDetected); Mycoplasma pneumoniae PCR Not Detected (NotDetected); Parainfluenza Virus 1 PCR Not Detected (NotDetected); Parainfluenza Virus 2 PCR Not Detected (NotDetected); Parainfluenza Virus 3 PCR Not Detected (NotDetected); Parainfluenza Virus 4 PCR Not Detected (NotDetected); Respiratory Syncytial VirusPCR Not Detected (NotDetected); Rhinovirus/Enterovirus PCR Not Detected (NotDetected)
[2020-09-04] MEDS ORDERED: FLUTICASONE/VILANTEROL 200/25MCG 14 PUFFS/INHALER INH SCH (13:30)
--- NOTE | 2020-09-04 15:00 | Pulmonary Consultation ---
Date of Consultation September 04, 2020 Assessment & Plan (1) Acute hypoxemic respiratory failure: (2) Pneumonia: Laterality: unspecified laterality Lung location: unspecified part of lung Pneumonia type: due to unspecified organism Qualified Code(s): J18.9 - Pneumonia, unspecified organism (3) Interstitial lung disease: (4) Bronchiectasis: Impression: 65-year-old female with interstitial lung disease which has not been completely characterized admitted now with an exacerbation and progressive groundglass opacities. She was coughing up some stuff. She has a history of hypercarbic respiratory failure secondary to her chronic lung disease and is on CPAP but has had issues with the machine at home. Recommendations: 1. Progressive interstitial lung disease: The etiology is somewhat unclear. The current pattern is not consistent with UIP and the patient has never had a histopathologic diagnosis performed. The only serologies she has had done were an anti-CCP which was negative, and IgE level which was markedly elevated and a negative aldolase. While the pattern radiograph is not entirely consistent with UIP, a diagnosis of IPF is possible however given the abnormal presentation, clinical correlation and serological correlation as well as a tissue diagnosis would be recommended. Review of her PFTs demonstrates that she has a severe restrictive lung disease with a total lung capacity of less than 50% and consideration for transplant evaluation may be appropriate although her age may preclude at this point in time. She does feel better on prednisone which raises the possibility of chronic hypersensitivity pneumonitis. This would go along with the elevated IgE level. I am unclear if the prior episode of bowel resection that she had could have represented a manifestation of Churg-Ann or other vasculitides which could explain her elevated IgE level and her pulmonary fibrosis. She is not had significant eosinophilia although has been on steroids intermittently which may have diminished eosinophilia. I will con duct additional serological evaluation including ANCA evaluation. I think keeping her on prednisone at this point time is reasonable. We did discuss bronchoscopy with BAL to exclude infection however as the patient is already been on antibiotics and steroids, I think the yield at this point time is somewhat lower and she is feeling markedly better with steroids and antibiotics. This will need to be followed closely in the outpatient setting to determine optimal therapy. She is at risk for pneumocystis infection given her frequent steroid bursts. Will check LDH level 2. Bronchiectasis with potential exacerbation. She has never had a sputum culture collected so we will start with that. Seems reasonable to continue antibiotics for now and Rocephin and azithromycin would be reasonable antibiotics although the patient is risk for other organisms including staph aureus and Pseudomonas given her structurally abnormal lungs. Will await sputum cultures to taper antibiotics. Continue pulmonary toilet. 3. Hypercarbic respiratory failure: Venous blood gas demonstrates a PCO2 of 47 with a normal pH. I suspect the patient has chronic hypercarbic respiratory failure related to her restrictive lung disease. We will continue CPAP nightly. Again she will require close clinical follow-up to ensure that her blood gas remains normal with nocturnal positive airway pressure. 4. Hypoxemic respiratory failure. Suspect this is both acute and chronic. She should continue to use oxygen titrated to keep saturations at or above 88%. Additional recommendations will be based on response to therapy and results of imaging studies. The results of the serological evaluation will take quite some time and I do not think she needs to remain in the hospital pending those results. When she feels well enough to go home, she can be dismissed from the hospital on follow-up in the outpatient setting with BAIRON Maria History of Present Illness Attending Physician: Jumana Beckman MD Allergies Allergy/AdvReac Type Severity Reaction Status Date / Time GRAINS Allergy Intermediate hives Uncoded 09/03/20 19:22 Home Medications Medication Instructions Recorded Confirmed Type calcium polycarbophil 625 mg tablet 650 mg PO DAILY tab 01/29/19 09/03/20 History guaifenesin 600 mg tablet, 600 mg PO DAILY tab 01/29/19 09/03/20 History extended release 12 hr glucosamine sulfate 500 mg tablet 500 mg PO BID 02/19/19 09/03/20 History magnesium 200 mg tablet 200 mg PO DAILY 02/19/19 09/03/20 History turmeric 400 mg capsule 400 mg PO DAILY cap 02/19/19 09/03/20 History alpha lipoic acid 300 mg capsule 300 mg PO DAILY cap 05/01/19 09/03/20 History calcium carbonate 600 mg calcium 600 mg PO DAILY tab 05/01/19 09/03/20 History (1,500 mg) tablet coenzyme Q10 100 mg capsule 100 mg PO DAILY cap 05/01/19 09/03/20 History evening primrose oil-linoleic 1 cap PO DAILY cap 05/01/19 09/03/20 History acid-gamolenic acid 1,000 mg capsule omega-3 acid ethyl esters 1 gram 1 cap PO DAILY cap 05/01/19 09/03/20 History capsule cholecalciferol (vitamin D3) 50 4,000 units PO DAILY cap 07/11/19 09/03/20 History mcg (2,000 unit) capsule triamcinolone acetonide 55 mcg 2 sprays INTRANASAL DAILY ml 07/11/19 09/03/20 History nasal spray aerosol albuterol sulfate 90 mcg/actuation 1 puffs INH Q6H PRN #8.5 gm 02/19/20 09/03/20 Rx aerosol inhaler thyroid (pork) 90 mg tablet 90 mg PO DAILY #90 tab 02/27/20 09/03/20 Rx nintedanib 150 mg capsule 150 mg PO Q12H #60 cap 03/31/20 09/03/20 Rx montelukast 10 mg tablet 10 mg PO QPM #90 tab 06/03/20 09/03/20 Rx fluticasone furoate 200 1 inh INH DAILY #90 ea 07/14/20 09/03/20 Rx mcg-vilanterol 25 mcg/dose inhalation powder ipratropium 0.5 mg-albuterol 3 mg 3 ml INH Q4H PRN #180 ml 08/01/20 09/03/20 Rx (2.5 mg base)/3 mL nebulization soln cetirizine [Zyrtec] 10 mg PO DAILY 09/03/20 09/03/20 History doxycycline hyclate 100 mg capsule 100 mg PO BID #20 cap 09/03/20 09/03/20 Rx glutamine 500 mg PO DAILY 09/03/20 09/03/20 History lysine HCl 500 mg PO DAILY 09/03/20 09/03/20 History prednisone 10 mg tablet See Rx Instructions PO DAILY #20 09/03/20 09/03/20 Rx tab sodium chloride 1 ml INHALATION TID 09/03/20 09/03/20 History Patient History Medical History (Updated 09/03/20 @ 21:41 by DEONDRE Brar) Allergic rhinitis Cervical cancer screening Diabetes mellitus Elevated transaminase level Encounter for routine gynecological examination Fatty liver Hyperlipidemia Hypothyroidism Interstitial lung disease Obstructive sleep apnea Vitamin D deficiency Surgical History History of appendectomy (02/2016) Dr. Shahid History of cataract surgery History of section History of dilation and curettage History of laparoscopic cholecystectomy Hx of right hemicolectomy Family History Mother , age 62 Adenomatous polyposis coli Hyperlipidemia COPD (chronic obstructive pulmonary disease) Father , age 61 Atherosclerosis Lung cancer Brother Myocardial infarction Hyperlipidemia Diabetes FHx: mental illness Sister Cystic fibrosis Stroke Heart valve replaced Osteoporosis Social History (Updated 03/12/20 @ 14:13 by Gillian Avilez) Smoking Status: Former smoker Hx Alcohol Use: No Hx Substance Use: Yes Last Used Substance: Days (ago) Last Used Substance Othe r:: 4 days Substance Use Type Other:: medical marijuana-not here Preferred Language: [place] Communication Ability: Effective Visual Impairment: Limited Hearing Ability: Normal Ship Superintendent Required: No Beliefs That Will Affect Care: None marital status: Current Living Situation: Spouse current occupational status: retired Feels Safe at Home: Yes Diet Comment: grain free Dental Care, Regularly: Yes Physical Activity Frequency: 5-6 Times per Week Seatbelt Use: always Sunscreen Use: Yes Assistive Devices: Glasses, Nebulizer and Oxygen - Continuous Review of Systems Review of Systems: See admission H&P. No additions or deletions Physical Exam Constitutional: WD/WN, vitals as above Neck: trachea midline, no thyromegaly Respiratory: normal respiratory effort; no respiratory distress Auscultation: + crackles Cardiovascular: RRR, no murmur, no edema Gastrointestinal (Abdomen): normal bowel sounds, soft, nontender, no hepatosplenomegaly Musculoskeletal: Extremities: extremities normal to inspection Skin: no rashes, warm and dry Neurologic: Nonfocal exam Lymphatic: no cervical lymphadenopathy Results & Data Results & Data ([facility]) Vital Signs (Past 12 Hours) Vital Signs Temp Pulse Pulse Resp BP Pulse Ox 09/04/20 14:09 90 92 09/04/20 11:25 91 H 18 91 09/04/20 08:20 36.9 C 86 18 111/69 93 09/04/20 07:56 76 18 94 09/04/20 07:53 76 18 94 09/04/20 03:36 73 23 96 09/04/20 03:35 73 23 96 Laboratory Results 09/04/20 06:17 09/04/20 06:17 Primary IgE level was elevated at over [address] of the chest from 09/03/2020 was independently reviewed. There are diffuse subpleural fibrotic changes extending up to the apex with intralobular thickenin g as well. Honeycombing is identified. Compared to prior CT from February, there has been the development of diffuse groundglass opacities as well. Bronchiectatic changes are again noted. CTs were reviewed all the way back to 2018 and the fibrotic changes do appear to be progressive. PG Care Time/CCT Total # of Minutes Spent Total Time Spent with Patient: Total time spent is greater than 50% in marketing technology coordinator rdination of care (as documented) at patient's floor/unit and/or counseling patient: Coding Level of Care Code 44382 Inpt Consult Level 5 Diagnoses Acute hypoxemic respiratory failure J96.01 Pneumonia J18.9 Laterality: unspecified laterality Lung location: unspecified part of lung Pneumonia type: due to unspecified organism Interstitial lung disease J84.9 Bronchiectasis J47.9 Time Spent (min) 50
[2020-09-04 15:50] LABS: C Reactive Protein 10.6 mg/dl (0-0.29)
[2020-09-04] MEDS ORDERED: AZITHROMYCIN 250 MG TAB PO SCH ×2 (17:00)
[2020-09-04] MEDS: cefTRIAXone SODIUM 1,000 MG in DEXTROSE 5% 50 ML IV SCH (17:09)
[2020-09-04] MEDS ORDERED: SULFAMETHOXAZOLE/TRIMETHOPRIM DS 800/160MG TAB PO SCH ×2 (17:15→21:00)
[2020-09-04] MEDS: SULFA IV SCH (20:53)
[2020-09-04] MEDS: TRIMETH IV SCH (20:53)
[2020-09-04] MEDS: DEXTROSE 5% IV SCH (20:53)
[2020-09-05] MEDS ORDERED: Nursing to Pharmacy Communication SCH (02:15)
[2020-09-05] MEDS: ALBUT/IPRATROP 3MG/0.5MG NEB 3 ML VIAL NEB SCH ×3 (02:16→14:15)
[2020-09-05] MEDS: TRIMETH IV SCH ×3 (03:45→21:10)
[2020-09-05] MEDS: DEXTROSE 5% IV SCH ×3 (03:45→21:10)
[2020-09-05] MEDS: SULFA IV SCH ×3 (03:45→21:10)
[2020-09-05] MEDS: THYROID 90 MG PO SCH (07:13)
[2020-09-05] MEDS: OMEGA-3 (PURIFIED FISH OIL) 1 GM CAP PO SCH (07:16)
[2020-09-05] MEDS: GLUCOSAMINE SULFATE 500 MG CAP PO SCH (07:16)
[2020-09-05] MEDS: CALCIUM POLYCARBOPHIL 625MG TAB PO SCH (07:16)
[2020-09-05] MEDS: MAGNESIUM OXIDE 400 MG TAB PO SCH (07:16)
[2020-09-05] MEDS: guaiFENesin 600 MG TABCR PO SCH (07:16)
[2020-09-05] MEDS: CALCIUM CARBONATE 1250MG TAB PO SCH (07:17)
[2020-09-05] MEDS: predniSONE 20 MG TAB PO SCH (07:17)
[2020-09-05] MEDS: CHOLECALCIFEROL 1,000 UNITS 25 MCG TAB PO SCH (07:17)
[2020-09-05] MEDS: BUDESONIDE 0.5 MG/2 ML VIAL (PULMICORT) NEB SCH (07:22)
[2020-09-05] MEDS: SODIUM CHLOR 7% 4 ML NEB INH SCH (07:22)
[2020-09-05] MEDS ORDERED: ACETAMINOPHEN 1,000 MG/100 ML VIAL IV STA (07:24)
--- NOTE | 2020-09-05 08:41 | Hospitalist Progress Note ---
Date of Service September 05, 2020 Assessment & Plan (1) Acute hypoxemic respiratory failure: Patient is a 65-year-old female with a past medical history of chronic idiopathic urticaria, idiopathic pulmonary fibrosis, usual interstitial pneumonitis, allergic rhinitis, diabetes mellitus, fatty liver, hyperlipidemia, hypo. thyroidism, NIA who presents for evaluation of hypoxia and shortness of breath, malaise, chills. PFTs showed severe restrictive lung disease with a total lung capacity of less than 50%. Acute hypoxemic respiratory failure secondary to worsening idiopathic pulmonary fibrosis with a superimposed pneumonia complicated by unusual interstitial pneumonitis, bronchiectasis * COVID negative, flu negative, biofire negative * Ddimer negative * CT with worsening fibrosis and ?superimposed infection. WBC with left shift, improving 10.5k. no fever * Continuous pulse ox * Pulmonary consulted -- appreciate assistance * Continued CAP with Ceftriaxone, Azithromycin but ADDED BACTRIM IV 09/04 for possible Pneumocystis with elevated LDH * Prednisone 40mg daily, Mucinex * --> Additional labs ordered for ILD but possible Churg-Ann with bowel resection? Has elevated IgE in past. Follow Rheum labs, consult if needed * Sputum culture ordered, not done on admission * Duonebs, Sodium chloride, budesonide BID, Incentive spirometry, flutter valve * ESR 37, CRP 10.6, LDH 312 -- ? for Pneumocystis infection -- will add Bactrim IV to cover * Blood cultures ngtd * Discussed with pulmonary evening of 09/04 and made patient NPO after midnight for bronchoscopy WORSENING 09/05 -- progression of acute respiratory failure and oxygen requirement requiring BiPAP initially for sat 90% but had dropped into 50-60% this morning and slow to recover after going to bathroom. Patient tachypneic, tachycardic, with fever and decision made to transfer to ICU for bronch/intubation * Now intubated on Fentanyl, versed, propofol as needed * s/p bronchoscopy which showed alveolar hemorrhage in lingula * Bronch culture taken * Continue high dose steroids -- elevation in WBC could be progression of infection or from steroids * Continue ceftriaxone, azithromycin, Bactrim * Prednisone changed to methylprednisolone 125mg Q8 * If patient unable to be weaned off ventilator, Dr. Weeks has discussed with son and patient about possible need for tracheostomy * Management per ICU -- now with central and arterial lines * pH 7.27, pCO2 70, pO2 133, [id number], O2 sat 98% on ventilator with Rate 20, Fi)2 100%, TV 340, PEEP 8 Diabetes mellitus * Not on medications outpatient. A1c 6.5 * Pharmacy on consult as patient getting high dose steroids Hypothyroidism * TSH 1.71 * Continue pork thyroid 90 mg Allergic rhinitis * Follows locally with Dr. Soriano. On nintedanib outpatient as per Dr. 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 Takes special fiber supplement to help with diarrhea * continue home medications Hypokalemia K3.2 -- management per ICU DVT Prophylaxis * Lovenox SQ -- on hold as bronch with evidence of alveolar hemorrhage Dispo: transferred to ICU this morning. prolonged hospitalization CM to follow (2) IPF (idiopathic pulmonary fibrosis): (3) UIP (usual interstitial pneumonitis): (4) Pneumonia: (5) Allergic rhinitis: (6) Diabetes mellitus: (7) Hypothyroidism: (8) Interstitial lung disease: (9) Obstructive sleep apnea: Admission and Anticipated Discharge Date Admission Date: September 03, 2020 Supervising Physician Co-Signing Physician Notes PA Supervision Note: I did not personally see or examine the patient today, but I verified all orozco points of BAIRON Giraldo's assessment and plan with the following exceptions/additions: I was contacted by the Pulm PA urgently this AM when he saw the pt and noted worsening resp distress. SHe was transferred to ICU for bronchoscopy and intubation. Noted to have lingular alveolar hemorrhage and then developed PTX. -Appreciate [facility] Turner care Subjective Patient seen this morning with increased work of breathing, tachycardia, fever, tachypnea and increased shortness of breath despite transition to BiPAP. Was evaluated by respiratory and decision made to transfer patient to ICU emergently for possible intubation and proceeding with bronchoscopy for evaluation of underlying illness. Review of Systems Review of Systems: All systems reviewed & are unremarkable except as noted in HPI & below Physical Exam Constitutional: + acute distress and cooperative; not combative Eyes: PERRL; no eyelid abnormality Neck: trachea midline Respiratory: + labored breathing, + uses accessory muscles and + tachypneic; no audible wheezes Auscultation: + crackles (bilateral); no wheezes 90%on BiPAP Cardiovascular: Rate/Rhythm: + tachycardic Heart Sounds: no murmur Extremities: no edema Gastrointestinal (Abdomen): Inspection/Auscultation: normal bowel sounds Percussion/Palpation: abdomen nontender Musculoskeletal: clubbing noted Skin: warm, moist Neurologic: moves all extremities and awake Psychiatric: Orientation: alert and oriented x 3 Results & Data Results & Data ([facility]) Vital Signs (Past 12 Hours) Vital Signs Temp Pulse Pulse Resp BP Pulse Ox Pulse Ox 09/05/20 07:26 119 H 119 H 20 91 09/05/20 07:23 38.1 C H 09/05/20 07:09 38.4 C H 111 H 20 117/72 93 09/05/20 06:35 90 09/05/20 02:17 92 H 92 H 20 91 09/05/20 00:05 90 09/04/20 23:47 87 18 90 09/04/20 23:46 87 90 09/04/20 23:07 36.7 C 95 H 14 116/73 92 Laboratory Results 09/05/20 09/05/20 09/05/20 Range/Units 12:11 11:58 10:00 WBC (4.8-10.8) K/uL RBC (4.2-5.4) M/uL Hgb (12.0-16.0) g/dL Hct (37-47) % MCV (80-100) fL MCH (25-34) pg MCHC (32-36) g/dL RDW Std Deviation (36.4-46.3) fL RDW Coeff of Ivanna (11.5-14.5) % Plt Count (130-400) K/uL MPV (7.4-10.4) fL Immature Gran % (Auto) % Neut % (Auto) % Lymph % (Auto) % [place] % (Auto) % Eos % (Auto) % Baso % (Auto) % Neut # (Auto) (1.4-6.5) K/uL Lymph # (Auto) (1.2-3.4) K/uL [place] # (Auto) (0.11-0.59) K/uL Eos # (Auto) (0-0.5) K/uL Baso # (Auto) (0-0.2) K/uL Immature Gran # (Auto) (0.00-0.02) K/uL ESR (0-21) mm/hr Sample Site L Radial POC pH 7.27 L (7.35-7.45) POC pCO2 70 H (35-46) mmHg POC pO2 133 H (80-95) mmHg POC HCO3 32 H (19-24) vickie/L POC Total CO2 34 H (24-31) mmol/L POC Base Excess 5.0 H (-9-1.8) vickie/L POC ABG O2 Sat 98.0 H (90-95) % Chapin Test NA O2 Delivery Device Ventilator POC O2 Rate 20 POC FiO2 100 % Tidal Volume 340 PEEP 8 Sodium (136-145) mmol/L Potassium (3.5-5.1) mmol/L Chloride (98-107) mmol/L Carbon Dioxide (21-32) mmol/L Anion Gap (3-11) BUN (7-18) mg/dl Creatinine (0.6-1.2) mg/dl Est Cr Clr Drug Dosing ml/min Est GFR ( Amer) Est GFR (Non-Af Amer) BUN/Creatinine Ratio (10-20) Glucose (70-99) mg/dl POC Glucose 169 H (70-99) mg/dl Estimat Average Glucose mg/dl Hemoglobin A1c (4.5-5.6) % Calcium (8.5-10.1) mg/dl Total Bilirubin (0.2-1) mg/dl AST (15-37) U/L ALT (12-78) U/L Alkaline Phosphatase (45-117) U/L Lactate Dehydrogenase (84-246) U/L Total Creatine Kinase (26-192) U/L C-Reactive Protein (0-0.29) mg/dl NT-Pro-B Natriuret Pep (0-900) pg/ml Total Protein (6.4-8.2) gm/dl Albumin (3.4-5.0) gm/dl Globulin (2.5-4.0) gm/dl Albumin/Globulin Ratio (0.9-2) Angiotensin Convert Enz TSH (0.300-4.500) uIu/ml Fluid Neutrophils % Fluid Lymphocytes % Fluid Eosinophils % Fl Monocyt/Macrophag % Rheumatoid Factor Proteinase 3 (PR3) Anti-Neutrophil (Flow) BRYAN-1 Antibody SS-A/Ro Antibody SS-B/La Antibody Sm (Maria) Antibody SEWING DEMONSTRATOR Antibody Scl-70 Scleroderma Ab Double Strand DNA Ab Anti-Centromere Ab Glomerular Base Memb Ab Adenovirus (PCR) (NotDetected) B. pertussis DNA (PCR) (NotDetected) B.parapertussis DNA PCR (NotDetected) C. pneumoniae DNA (PCR) (NotDetected) Coronavirus OC43 (PCR) (NotDetected) Coronavirus HKU1 (PCR) (NotDetected) Coronavirus 229E (PCR) (NotDetected) SARS-CoV-2 (PCR) (NotDetected) Coronavirus NL63 (PCR) (NotDetected) Human Metapneumovir PCR (NotDetected) Influenza Type A (PCR) (NotDetected) Influenza Type B (PCR) (NotDetected) M. pneumoniae (PCR) (NotDetected) Parainfluenza 1 (PCR) (NotDetected) Parainfluenza 2 (PCR) (NotDetected) Parainfluenza 3 (PCR) (NotDetected) Parainfluenza 4 (PCR) (NotDetected) RSV (PCR) (NotDetected) Resp Virus Cult Rapid Pending Entero/Rhino (PCR) (NotDetected) Viral Specimen Source Pending 09/05/20 09/05/20 09/05/20 Range/Units 10:00 08:40 08:38 WBC 15.88 H (4.8-10.8) K/uL RBC 4.56 (4.2-5.4) M/uL Hgb 12.8 (12.0-16.0) g/dL Hct 39.7 (37-47) % MCV 87.1 (80-100) fL MCH 28.1 (25-34) pg MCHC 32.2 (32-36) g/dL RDW Std Deviation 44.4 (36.4-46.3) fL RDW Coeff of Ivanna 13.9 (11.5-14.5) % Plt Count 368 (130-400) K/uL MPV 9.7 (7.4-10.4) fL Immature Gran % (Auto) 0.3 % Neut % (Auto) 81.4 % Lymph % (Auto) 7.4 % [place] % (Auto) 8.8 % Eos % (Auto) 2.0 % Baso % (Auto) 0.1 % Neut # (Auto) 12.93 H (1.4-6.5) K/uL Lymph # (Auto) 1.18 L (1.2-3.4) K/uL [place] # (Auto) 1.39 H (0.11-0.59) K/uL Eos # (Auto) 0.31 (0-0.5) K/uL Baso # (Auto) 0.02 (0-0.2) K/uL Immature Gran # (Auto) 0.05 H (0.00-0.02) K/uL ESR (0-21) mm/hr Sample Site POC pH (7.35-7.45) POC pCO2 (35-46) mmHg POC pO2 (80-95) mmHg POC HCO3 (19-24) vickie/L POC Total CO2 (24-31) mmol/L POC Base Excess (-9-1.8) vickie/L POC ABG O2 Sat (90-95) % Chapin Test O2 Delivery Device POC O2 Rate POC FiO2 % Tidal Volume PEEP Sodium (136-145) mmol/L Potassium (3.5-5.1) mmol/L Chloride (98-107) mmol/L Carbon Dioxide (21-32) mmol/L Anion Gap (3-11) BUN (7-18) mg/dl Creatinine (0.6-1.2) mg/dl Est Cr Clr Drug Dosing ml/min Est GFR ( Amer) Est GFR (Non-Af Amer) BUN/Creatinine Ratio (10-20) Glucose (70-99) mg/dl POC Glucose (70-99) mg/dl Estimat Average Glucose mg/dl Hemoglobin A1c (4.5-5.6) % Calcium (8.5-10.1) mg/dl Total Bilirubin (0.2-1) mg/dl AST (15-37) U/L ALT (12-78) U/L Alkaline Phosphatase (45-117) U/L Lactate Dehydrogenase (84-246) U/L Total Creatine Kinase (26-192) U/L C-Reactive Protein (0-0.29) mg/dl NT-Pro-B Natriuret Pep (0-900) pg/ml Total Protein (6.4-8.2) gm/dl Albumin (3.4-5.0) gm/dl Globulin (2.5-4.0) gm/dl Albumin/Globulin Ratio (0.9-2) Angiotensin Convert Enz TSH (0.300-4.500) uIu/ml Fluid Neutrophils % Pending Fluid Lymphocytes % Pending Fluid Eosinophils % Pending Fl Monocyt/Macrophag % Pending Rheumatoid Factor Proteinase 3 (PR3) Anti-Neutrophil (Flow) BRYAN-1 Antibody SS-A/Ro Antibody SS-B/La Antibody Sm (Maria) Antibody SEWING DEMONSTRATOR Antibody Scl-70 Scleroderma Ab Double Strand DNA Ab Anti-Centromere Ab Glomerular Base Memb Ab Pending Adenovirus (PCR) (NotDetected) B. pertussis DNA (PCR) (NotDetected) B.parapertussis DNA PCR (NotDetected) C. pneumoniae DNA (PCR) (NotDetected) Coronavirus OC43 (PCR) (NotDetected) Coronavirus HKU1 (PCR) (NotDetected) Coronavirus 229E (PCR) (NotDetected) SARS-CoV-2 (PCR) (NotDetected) Coronavirus NL63 (PCR) (NotDetected) Human Metapneumovir PCR (NotDetected) Influenza Type A (PCR) (NotDetected) Influenza Type B (PCR) (NotDetected) M. pneumoniae (PCR) (NotDetected) Parainfluenza 1 (PCR) (NotDetected) Parainfluenza 2 (PCR) (NotDetected) Parainfluenza 3 (PCR) (NotDetected) Parainfluenza 4 (PCR) (NotDetected) RSV (PCR) (NotDetected) Resp Virus Cult Rapid Entero/Rhino (PCR) (NotDetected) Viral Specimen Source 09/05/20 09/05/20 09/04/20 Range/Units 08:38 08:38 Unknown WBC (4.8-10.8) K/uL RBC (4.2-5.4) M/uL Hgb (12.0-16.0) g/dL Hct (37-47) % MCV (80-100) fL MCH (25-34) pg MCHC (32-36) g/dL RDW Std Deviation (36.4-46.3) fL RDW Coeff of Ivanna (11.5-14.5) % Plt Count (130-400) K/uL MPV (7.4-10.4) fL Immature Gran % (Auto) % Neut % (Auto) % Lymph % (Auto) % [place] % (Auto) % Eos % (Auto) % Baso % (Auto) % Neut # (Auto) (1.4-6.5) K/uL Lymph # (Auto) (1.2-3.4) K/uL [place] # (Auto) (0.11-0.59) K/uL Eos # (Auto) (0-0.5) K/uL Baso # (Auto) (0-0.2) K/uL Immature Gran # (Auto) (0.00-0.02) K/uL ESR (0-21) mm/hr Sample Site POC pH (7.35-7.45) POC pCO2 (35-46) mmHg POC pO2 (80-95) mmHg POC HCO3 (19-24) vickie/L POC Total CO2 (24-31) mmol/L POC Base Excess (-9-1.8) vickie/L POC ABG O2 Sat (90-95) % Chapin Test O2 Delivery Device POC O2 Rate POC FiO2 % Tidal Volume PEEP Sodium 139 (136-145) mmol/L Potassium 3.2 L D (3.5-5.1) mmol/L Chloride 102 (98-107) mmol/L Carbon Dioxide 30 (21-32) mmol/L Anion Gap 7.0 (3-11) BUN 11 (7-18) mg/dl Creatinine 0.62 (0.6-1.2) mg/dl Est Cr Clr Drug Dosing 88.8 ml/min Est GFR ( Amer) 108.1 Est GFR (Non-Af Amer) 93.3 BUN/Creatinine Ratio 18.0 (10-20) Glucose 128 H (70-99) mg/dl POC Glucose (70-99) mg/dl Estimat Average Glucose 140 mg/dl Hemoglobin A1c 6.5 H (4.5-5.6) % Calcium 9.1 (8.5-10.1) mg/dl Total Bilirubin 0.4 (0.2-1) mg/dl AST 17 (15-37) U/L ALT 20 (12-78) U/L Alkaline Phosphatase 53 (45-117) U/L Lactate Dehydrogenase (84-246) U/L Total Creatine Kinase (26-192) U/L C-Reactive Protein (0-0.29) mg/dl NT-Pro-B Natriuret Pep (0-900) pg/ml Total Protein 6.9 (6.4-8.2) gm/dl Albumin 2.8 L (3.4-5.0) gm/dl Globulin 4.1 H (2.5-4.0) gm/dl Albumin/Globulin Ratio 0.7 L (0.9-2) Angiotensin Convert Enz TSH 1.710 (0.300-4.500) uIu/ml Fluid Neutrophils % Fluid Lymphocytes % Fluid Eosinophils % Fl Monocyt/Macrophag % Rheumatoid Factor Proteinase 3 (PR3) Anti-Neutrophil (Flow) BRYAN-1 Antibody SS-A/Ro Antibody SS-B/La Antibody Sm (Maria) Antibody SEWING DEMONSTRATOR Antibody Scl-70 Scleroderma Ab Double Strand DNA Ab Anti-Centromere Ab Glomerular Base Memb Ab Adenovirus (PCR) Not Detected (NotDetected) B. pertussis DNA (PCR) Not Detected (NotDetected) B.parapertussis DNA PCR Not Detected (NotDetected) C. pneumoniae DNA (PCR) Not Detected (NotDetected) Coronavirus OC43 (PCR) Not Detected (NotDetected) Coronavirus HKU1 (PCR) Not Detected (NotDetected) Coronavirus 229E (PCR) Not Detected (NotDetected) SARS-CoV-2 (PCR) Not Detected (NotDetected) Coronavirus NL63 (PCR) Not Detected (NotDetected) Human Metapneumovir PCR Not Detected (NotDetected) Influenza Type A (PCR) Not Detected (NotDetected) Influenza Type B (PCR) Not Detected (NotDetected) M. pneumoniae (PCR) Not Detected (NotDetected) Parainfluenza 1 (PCR) Not Detected (NotDetected) Parainfluenza 2 (PCR) Not Detected (NotDetected) Parainfluenza 3 (PCR) Not Detected (NotDetected) Parainfluenza 4 (PCR) Not Detected (NotDetected) RSV (PCR) Not Detected (NotDetected) Resp Virus Cult Rapid Entero/Rhino (PCR) Not Detected (NotDetected) Viral Specimen Source 09/04/20 09/04/20 09/04/20 Range/Units 21:13 15:16 15:16 WBC (4.8-10.8) K/uL RBC (4.2-5.4) M/uL Hgb (12.0-16.0) g/dL Hct (37-47) % MCV (80-100) fL MCH (25-34) pg MCHC (32-36) g/dL RDW Std Deviation (36.4-46.3) fL RDW Coeff of Ivanna (11.5-14.5) % Plt Count (130-400) K/uL MPV (7.4-10.4) fL Immature Gran % (Auto) % Neut % (Auto) % Lymph % (Auto) % [place] % (Auto) % Eos % (Auto) % Baso % (Auto) % Neut # (Auto) (1.4-6.5) K/uL Lymph # (Auto) (1.2-3.4) K/uL [place] # (Auto) (0.11-0.59) K/uL Eos # (Auto) (0-0.5) K/uL Baso # (Auto) (0-0.2) K/uL Immature Gran # (Auto) (0.00-0.02) K/uL ESR (0-21) mm/hr Sample Site POC pH (7.35-7.45) POC pCO2 (35-46) mmHg POC pO2 (80-95) mmHg POC HCO3 (19-24) vickie/L POC Total CO2 (24-31) mmol/L POC Base Excess (-9-1.8) vickie/L POC ABG O2 Sat (90-95) % Chapin Test O2 Delivery Device POC O2 Rate POC FiO2 % Tidal Volume PEEP Sodium (136-145) mmol/L Potassium (3.5-5.1) mmol/L Chloride (98-107) mmol/L Carbon Dioxide (21-32) mmol/L Anion Gap (3-11) BUN (7-18) mg/dl Creatinine (0.6-1.2) mg/dl Est Cr Clr Drug Dosing ml/min Est GFR ( Amer) Est GFR (Non-Af Amer) BUN/Creatinine Ratio (10-20) Glucose (70-99) mg/dl POC Glucose 203 H (70-99) mg/dl Estimat Average Glucose mg/dl Hemoglobin A1c (4.5-5.6) % Calcium (8.5-10.1) mg/dl Total Bilirubin (0.2-1) mg/dl AST (15-37) U/L ALT (12-78) U/L Alkaline Phosphatase (45-117) U/L Lactate Dehydrogenase (84-246) U/L Total Creatine Kinase 39 (26-192) U/L C-Reactive Protein 10.60 H (0-0.29) mg/dl NT-Pro-B Natriuret Pep 193 (0-900) pg/ml Total Protein (6.4-8.2) gm/dl Albumin (3.4-5.0) gm/dl Globulin (2.5-4.0) gm/dl Albumin/Globulin Ratio (0.9-2) Angiotensin Convert Enz TSH (0.300-4.500) uIu/ml Fluid Neutrophils % Fluid Lymphocytes % Fluid Eosinophils % Fl Monocyt/Macrophag % Rheumatoid Factor Pending Proteinase 3 (PR3) Pending Anti-Neutrophil (Flow) Pending BRYAN-1 Antibody Pending SS-A/Ro Antibody Pending SS-B/La Antibody Pending Sm (Maria) Antibody Pending SEWING DEMONSTRATOR Antibody Pending Scl-70 Scleroderma Ab Pending Double Strand DNA Ab Pending Anti-Centromere Ab Pending Glomerular Base Memb Ab Adenovirus (PCR) (NotDetected) B. pertussis DNA (PCR) (NotDetected) B.parapertussis DNA PCR (NotDetected) C. pneumoniae DNA (PCR) (NotDetected) Coronavirus OC43 (PCR) (NotDetected) Coronavirus HKU1 (PCR) (NotDetected) Coronavirus 229E (PCR) (NotDetected) SARS-CoV-2 (PCR) (NotDetected) Coronavirus NL63 (PCR) (NotDetected) Human Metapneumovir PCR (NotDetected) Influenza Type A (PCR) (NotDetected) Influenza Type B (PCR) (NotDetected) M. pneumoniae (PCR) (NotDetected) Parainfluenza 1 (PCR) (NotDetected) Parainfluenza 2 (PCR) (NotDetected) Parainfluenza 3 (PCR) (NotDetected) Parainfluenza 4 (PCR) (NotDetected) RSV (PCR) (NotDetected) Resp Virus Cult Rapid Entero/Rhino (PCR) (NotDetected) Viral Specimen Source 09/04/20 09/04/20 09/04/20 Range/Units 15:16 13:21 06:17 WBC (4.8-10.8) K/uL RBC (4.2-5.4) M/uL Hgb (12.0-16.0) g/dL Hct (37-47) % MCV (80-100) fL MCH (25-34) pg MCHC (32-36) g/dL RDW Std Deviation (36.4-46.3) fL RDW Coeff of Ivanna (11.5-14.5) % Plt Count (130-400) K/uL MPV (7.4-10.4) fL Immature Gran % (Auto) % Neut % (Auto) % Lymph % (Auto) % [place] % (Auto) % Eos % (Auto) % Baso % (Auto) % Neut # (Auto) (1.4-6.5) K/uL Lymph # (Auto) (1.2-3.4) K/uL [place] # (Auto) (0.11-0.59) K/uL Eos # (Auto) (0-0.5) K/uL Baso # (Auto) (0-0.2) K/uL Immature Gran # (Auto) (0.00-0.02) K/uL ESR 37 H (0-21) mm/hr Sample Site POC pH (7.35-7.45) POC pCO2 (35-46) mmHg POC pO2 (80-95) mmHg POC HCO3 (19-24) vickie/L POC Total CO2 (24-31) mmol/L POC Base Excess (-9-1.8) vickie/L POC ABG O2 Sat (90-95) % Chapin Test O2 Delivery Device POC O2 Rate POC FiO2 % Tidal Volume PEEP Sodium (136-145) mmol/L Potassium (3.5-5.1) mmol/L Chloride (98-107) mmol/L Carbon Dioxide (21-32) mmol/L Anion Gap (3-11) BUN (7-18) mg/dl Creatinine (0.6-1.2) mg/dl Est Cr Clr Drug Dosing ml/min Est GFR ( Amer) Est GFR (Non-Af Amer) BUN/Creatinine Ratio (10-20) Glucose (70-99) mg/dl POC Glucose (70-99) mg/dl Estimat Average Glucose mg/dl Hemoglobin A1c (4.5-5.6) % Calcium (8.5-10.1) mg/dl Total Bilirubin (0.2-1) mg/dl AST (15-37) U/L ALT (12-78) U/L Alkaline Phosphatase (45-117) U/L Lactate Dehydrogenase 312 H (84-246) U/L Total Creatine Kinase (26-192) U/L C-Reactive Protein (0-0.29) mg/dl NT-Pro-B Natriuret Pep (0-900) pg/ml Total Protein (6.4-8.2) gm/dl Albumin (3.4-5.0) gm/dl Globulin (2.5-4.0) gm/dl Albumin/Globulin Ratio (0.9-2) Angiotensin Convert Enz Pending TSH (0.300-4.500) uIu/ml Fluid Neutrophils % Fluid Lymphocytes % Fluid Eosinophils % Fl Monocyt/Macrophag % Rheumatoid Factor Proteinase 3 (PR3) Anti-Neutrophil (Flow) BRYAN-1 Antibody SS-A/Ro Antibody SS-B/La Antibody Sm (Maria) Antibody SEWING DEMONSTRATOR Antibody Scl-70 Scleroderma Ab Double Strand DNA Ab Anti-Centromere Ab Glomerular Base Memb Ab Adenovirus (PCR) (NotDetected) B. pertussis DNA (PCR) (NotDetected) B.parapertussis DNA PCR (NotDetected) C. pneumoniae DNA (PCR) (NotDetected) Coronavirus OC43 (PCR) (NotDetected) Coronavirus HKU1 (PCR) (NotDetected) Coronavirus 229E (PCR) (NotDetected) SARS-CoV-2 (PCR) (NotDetected) Coronavirus NL63 (PCR) (NotDetected) Human Metapneumovir PCR (NotDetected) Influenza Type A (PCR) (NotDetected) Influenza Type B (PCR) (NotDetected) M. pneumoniae (PCR) (NotDetected) Parainfluenza 1 (PCR) (NotDetected) Parainfluenza 2 (PCR) (NotDetected) Parainfluenza 3 (PCR) (NotDetected) Parainfluenza 4 (PCR) (NotDetected) RSV (PCR) (NotDetected) Resp Virus Cult Rapid Entero/Rhino (PCR) (NotDetected) Viral Specimen Source Diagnostic Findings XR chest 1V portable CLINICAL HISTORY: post intubation, line placement COMPARISON STUDY: Chest radiograph performed earlier today. FINDINGS: The tip of the nasogastric tube projects over the distal stomach or proximal duodenum. Tip of endotracheal tube is 4.1 cm above the adelso. Tip of left subclavian central line projects over the cavoatrial junction. There has been interval development of a moderate left pneumothorax with superior pleural separation of 2.8 cm. There is no right pneumothorax. Interstitial thickening represents pulmonary fibrosis. Superimposed airspace opacities are noted. Cardiomediastinal silhouette is stable. IMPRESSION: 1. Moderate left pneumothorax. This finding was discussed with the nurse caring for the patient at time of dictation. 2. Satisfactory positioning of the endotracheal tube. 3. Tip of nasogastric tube projects over the pylorus or proximal duodenum. The tube could be withdrawn 2 cm. 4. Findings consistent with pulmonary fibrosis with superimposed airspace opacity suggestive of an infectious process. PG Care Time/CCT Total # of Minutes Spent Total Time Spent with Patient: Total time spent is greater than 50% in coordination of care (as documented) at patient's floor/unit and/or counseling patient: Coding Level of Care Code 31425 Subseq Hosp Care Lvl 3 Diagnoses Acute hypoxemic respiratory failure J96.01 IPF (idiopathic pulmonary fibrosis) J84.112 UIP (usual interstitial pneumonitis) J84.112 Pneumonia J18.9 Laterality: unspecified laterality Lung location: unspecified part of lung Pneumonia type: due to unspecified organism Allergic rhinitis J30.9 Diabetes mellitus E11.9 Hypothyroidism E03.9 Interstitial lung disease J84.9 Obstructive sleep apnea G47.33 (1) Pneumonia Laterality: unspecified laterality Lung location: unspecified part of lung Pneumonia type: due to unspecified organism Qualified Code(s): J18.9 - Pneumonia, unspecified organism
[2020-09-05 08:54] LABS: Basophils # (auto) 0.02 K/uL (0-0.2); Basophils % (auto) 0.1 %; Eosinophils # (auto) 0.31 K/uL (0-0.5); Hematocrit (blood only) 39.7 % (37-47); Hemoglobin 12.8 g/dL (12.0-16.0); Immature Granulocytes # (auto) 0.05 K/uL (0.00-0.02); Immature Granulocytes % (auto) 0.3 %; Lymphocytes # (auto) 1.18 K/uL (1.2-3.4); Lymphocytes % (auto) 7.4 %; Mean Corpuscular Hemoglobin 28.1 pg (25-34); Mean Corpuscular Hgb Conc 32.2 g/dL (32-36); Mean Corpuscular Volume 87.1 fL (80-100); Mean Platelet Volume 9.7 fL (7.4-10.4); Monocytes # (auto) 1.39 K/uL (0.11-0.59); Monocytes % (auto) 8.8 %; Neutrophils # (auto) 12.93 K/uL (1.4-6.5); Neutrophils % (auto) 81.4 %; Platelet Count 368 K/uL (130-400); RDW Coefficient of Variation 13.9 % (11.5-14.5); RDW Standard Deviation 44.4 fL (36.4-46.3); Red Blood Count 4.56 M/uL (4.2-5.4); White Blood Count 15.88 K/uL (4.8-10.8)
[2020-09-05] MEDS ORDERED: RAPID SEQUENCE INDUCTION BAG ONE (09:00)
[2020-09-05] MEDS ORDERED: CETIRIZINE HCL 10 MG TABLET PO SCH (09:00)
[2020-09-05] MEDS ORDERED: PROPOFOL IV EMULSION 10 MG/ML 100 ML VIAL IV ONE (09:16)
[2020-09-05 09:21] LABS: Albumin Level 2.8 gm/dl (3.4-5.0); Calcium 9.1 mg/dl (8.5-10.1); Creatinine Clr Calc Pharmacy 88.8 ml/min; Est GFR (African American) 108.1; Est GFR (Non-African American) 93.3; Potassium 3.2 mmol/L (3.5-5.1)
--- NOTE | 2020-09-05 09:26 | XRay Report ---
XR chest 1V portable CLINICAL HISTORY: Respiratory distress. COMPARISON STUDY: Chest radiograph and chest CT September 03, 2020. FINDINGS: Underlying pulmonary fibrosis is noted. Superimposed bilateral airspace opacities have prog ressed since prior exam of September 03, 2020. Cardiomediastinal silhouette is stable. Lung volumes ar e diminished. This is unchanged. No pneumothorax or pleural effusion is noted. IMPRESSION: Progression of bilateral airspace opacities which suggests an infectious process superim posed upon pulmonary fibrosis. ACT 112: Negative or not required by law. Electronically signed by: Darrell Fraser M.D. 09/05/2020 9:25 AM
[2020-09-05 09:37] LABS: Albumin Globulin Ratio 0.7 (0.9-2); Bilirubin,Total 0.4 mg/dl (0.2-1); Globulin 4.1 gm/dl (2.5-4.0); Thyroid Stimulating Hormone 1.71 uIu/ml (0.300-4.500); Total Protein 6.9 gm/dl (6.4-8.2)
[2020-09-05 10:00] LABS: Estimated Average Glucose 140 mg/dl; Hemoglobin A1C 6.5 % (4.5-5.6)
[2020-09-05] MEDS ORDERED: PROPOFOL BOLUS FROM BAG IV PRN (10:09)
[2020-09-05] MEDS ORDERED: STAT IV Infusion **Titration per Protocol STA ×2 (10:09→16:06)
[2020-09-05] MEDS ORDERED: MIDAZOLAM BOLUS FROM BAG IV PRN (10:09)
[2020-09-05] MEDS ORDERED: MIDAZOLAM HCL 125 MG/250 ML BAG IV SCH (10:15)
[2020-09-05] MEDS: propofoL 1,000 MG/100 ML VIAL IV SCH ×3 (10:17→23:12)
[2020-09-05] MEDS: TRIAMCINOLONE ACET NASAL SPRAY 10.8ML BTL SCH (10:18)
[2020-09-05] MEDS: fentaNYL DRIP 1,250 MCG/250 ML BAG IV SCH (10:23)
--- NOTE | 2020-09-05 11:10 | Procedure Note ---
Procedure Note Date of Service September 05, 2020 INTUBATION PROCEDURE NOTE: Provider: Demario Weeks MD A time-out was completed verifying correct patient, procedure, site, positioning. Patient was evaluated and required intubation for hypoxemic respiratory failure and increased work of breathing. Sedative agent used: Propofol, Versed, etomidate, and fentanyl Paralysis agent used: None Verbal consent was obtained and verified. Due to urgency of the procedure, written consent was in the appropriate The patient was prepared in the appropriate fashion. Patient was on full face BiPAP and this was increased to 100% to allow for preoxygenation. Sedation was achieved with Versed and etomidate and the patient was placed in the supine position. An initial attempt at video laryngoscopy using the glide scope was attempted however the patient's larynx was very anterior and we were unable to get the endotracheal tube directed towards the glottis. The patient did have transient desaturations down to about 80%. She was converted back to [id number] ventilation and we were able to easily bagged her up to oxygen saturations in the 90s. At that point time I elected to pursue bronchoscopic intubation. An eight oh endotracheal tube was loaded over the bronchoscope. The scope was passed through the oropharynx and through the glottis and using the scope as a stylette the endotracheal tube was then passed into the airway and verified to be in good position. The patient did desaturate into the mid 80% range at this point time. She responded fairly rapidly to bagging once the endotracheal tube was in place. The tube was secured and the patient was attached to the ventilator. Position of the tube was verified using the bronchoscope. Was approximately 2.5 to 3 cm off the adelso Coding CPT Codes Resuscitation - Resuscitation: 29554 Endotracheal Intubation, emergency ([id number]) [facility] [place] Procedure Codes (Charges) Resuscitation Resuscitation: 84914 Endotracheal Intubation, emergency
--- NOTE | 2020-09-05 11:13 | Procedure Note ---
Procedure Note: Bronchoscopy Procedure Procedure: Fiberoptic bronchoscopy Bronchoalveolar lavage Provider: Demario Weeks MD Consent: Signed by patient and timeout verified prior to procedure. Indication: Diffuse pulmonary infiltrates and patient with interstitial lung disease Procedure: Patient was in the ICU and had been intubated earlier over the bronchoscope. Please see separate note. Once the tube was secured and the patient's oxygen saturations and hemodynamics were adequate, the fiberoptic bronchoscope was advanced through the newly placed endotracheal tube via the adapter. The tube was sounded and found to be in good position approximately 2 to 3 cm off the adelso. The tube was directed anteriorly against the soft tissues of the trachea and most the ventilation appear to be going through the Mesa's. I was able to exit the scope. A inspection of the airways was conducted briefly. There were some thick clear mucoid secretions present but no endobronchial lesion identified and certainly no evidence of purulent material in the airways. Once the inspection bronchoscopy was completed, the scope was wedged into the inferior segment of the lingula. A BAL was performed with three aliquots of 60 cc saline. Return was marginal at about 50% due to collapsibility of the airways. The initial return was clear however it did become more bloody with sequential BALs, consistent with probable alveolar hemorrhage. After the BAL was completed, the scope was withdrawn and the patient maintained on the vent ilator. She did have brief desaturations into the mid to lower 80% range which resolved at the conclusion of the procedure. Impression: 1. Endotracheal tube in good position. 2. Successful BAL in the lingula with findings consistent with alveolar hemorrhage.
--- NOTE | 2020-09-05 11:16 | Critical Care Progress Note ---
Date of Service September 05, 2020 Assessment & Plan (1) Acute hypoxemic respiratory failure: (2) Pneumonia: (3) Interstitial lung disease: (4) Bronchiectasis: Impression: 65-year-old female with interstitial lung disease which has not been completely characterized admitted now with an exacerbation and progressive groundglass opacities. She was coughing up some stuff. She has a history of hypercarbic respiratory failure secondary to her chronic lung disease and is on CPAP but has had issues with the machine at home. 24-hour events: The patient was seen this morning his had marked progression in her work of breathing as well as oxygen requirement. She was transferred to the ICU and underwent intubation, bronchoscopy and BAL. The BAL was suggestive of an alveolar hemorrhage from the lingula. She was already on prednisone and had been empirically started on Bactrim based on an elevated LDH. There was not significant purulent secretions in the airways. Central line and arterial lines were placed. The patient's son, Deion, was updated by phone Recommendations: 1. Neuro: Continue sedation with fentanyl, Versed, and propofol as needed. 2. Pulmonary: Hypoxemic respiratory failure with diffuse pulmonary infiltrates in the setting of severe fibrotic lung disease which has not been fully characterized. The current pattern is not consistent with UIP and the patient has never had a histopathologic diagnosis performed. The only serologies she has had done were an anti-CCP which was negative, and IgE level which was markedly elevated and a negative aldolase. She had not gone bronchoscopy previously and no lung biopsy had been performed. There was discussion about starting antifibrotic agents including pirfenidone and Ofev however these were never initiated. She does have a family history of pulmonary fibrosis and states that her sister due to lung disease however her sister also h ad cystic fibrosis so it is unclear what her ultimate respiratory pathology was. Her PFTs showed severe restrictive lung disease with a total lung capacity of less than 50%. Bronchoscopy today was consistent with alveolar hemorrhage. She has been initiated on antibiotics pending bronchoalveolar lavage culture and I placed her on high-dose Solu-Medrol now. Her urinalysis did not show any signif icant hematuria. Serological evaluation is pending. We will continue antibiotics to treat potential underlying infection pending bronchoscopic results. If she fails to improve on high-dose steroids, would consider transfer to a higher level of care for potential plasmapheresis. The patient did d emonstrate hypercarbic respiratory failure at rest and with an elevated CO2 and has been using nocturnal positive airway pressure. I suspect the etiology of her hypercarbia is restrictive lung disease and this will need to be addressed closely as she is weaned from the mechanical ventilator. I did have a long discussion with the patient prior to intubation and mechanical ventilation. I advised her and her son that due to her underlying restrictive lung disease and pulmonary fibrosis, weaning from the ventilator may be a prolonged course and may be somewhat difficult. She may require tracheostomy. They understood these risks and are agreeable to proceed in the hopes that her current setback is an acute process that may respond to therapy. 3. Cardiovascular: The patient is hemodynamically stable at this point time. We will continue to monitor. 4. GI: Nutritional consult will be obtained to initiate tube feeding. Prophylaxis would not be required once tube feeding is in place. 5. Renal: Electrolyte replacement protocols will be initiated. Follow kidney function. If she develops an active urinary sediment, will have low threshold for involving nephrology or rheumatology. 6. ID: Patient is currently day #2 Bactrim, Rocephin, and azithromycin. We will continue antibiotics for now. She has never had sputum cultures performed previously so it is unclear that she is colonized with resistant organisms although it certainly a possibility. If her silver stains come back negative, the Bactrim can be discontinued. Covid testing was negative on admission. Bio fire also failed to show a significant organism. 7. Endocrine: We will institute glycemic control protocol as the patient is on high-dose steroids. 8. Heme-onc: White count is elevated although it is in the setting of increasing her steroids I am unclear if this represents margination or leukemoid reaction. Continue to trend. Hemoglobin A1c was mildly elevated at 6.5 the patient may have underlying glucose intolerance potentially secondary to her frequent steroids. 9. Prophylaxis: We will hold Lovenox given alveolar hemorrhage and placed on SCDs. Patient's prognosis is guarded at this point time. A total of 89 minutes critical care time was spent evaluation management stabilization of this patient exclusive of procedures up to this point. She is at risk of continued multiorgan system failure and . Admission and Anticipated Discharge Date Admission Date: September 03, 2020 Subjective Patient initially seen upstairs on BiPAP. Her oxygen requirement has progressed significantly since I saw her yesterday and her work of breathing is markedly increased. She is not coughing or expectorating phlegm. She becomes easily fatigued with just talking and her respiratory rate has increased significantly. Decision was made to transfer her to the ICU for intubation and bronchoscopy. Please see separate procedure notes. Review of Systems Review of Systems: Unobtainable due to endotracheal tube Physical Exam Constitutional: + mechanically ventilated Intubated and sedated Neck: trachea midline, no thyromegaly Respiratory: normal respiratory effort Bilateral crackles Cardiovascular: RRR, no murmur, no edema Gastrointestinal (Abdomen): normal bowel sounds, soft, nontender, no hepatosplenomegaly Musculoskeletal: Extremities: extremities normal to inspection Skin: no rashes, warm and dry Neurologic: Nonfocal exam Lymphatic: no cervical lymphadenopathy Results & Data Results & Data ([facility]) Vital Signs (Past 12 Hours) Vital Signs Temp Pulse Pulse Resp BP BP Pulse Ox 09/05/20 09:54 102 H 86/64 L 90 09/05/20 09:53 96 H 83/59 L 93 09/05/20 09:51 100 H 92 09/05/20 09:50 100 H 94/55 L 91 09/05/20 09:49 103 H 93/41 L 85 L 09/05/20 09:47 99 H 89/59 L 84 L 09/05/20 09:40 109 H 91 09/05/20 09:39 111 H 125/73 89 L 09/05/20 09:37 113 H 146/77 H 90 09/05/20 09:35 118 H 169/93 H 85 L 09/05/20 09:33 111 H 159/87 H 91 09/05/20 09:31 130 H 162/114 H 74 L 09/05/20 09:30 105 H 96 09/05/20 09:29 112 H 129/74 97 09/05/20 09:27 111 H 135/70 98 09/05/20 09:20 113 H 93 09/05/20 09:19 113 H 137/77 93 09/05/20 09:10 111 H 49 H 93 09/05/20 09:00 110 H 42 H 93 09/05/20 08:49 111 H 49 H 92 09/05/20 08:40 116 H 30 H 91 09/05/20 08:19 37 C 112 H 38 H 124/82 92 09/05/20 07:26 119 H 119 H 20 91 09/05/20 07:23 38.1 C H 09/05/20 07:09 38.4 C H 111 H 20 117/72 93 09/05/20 06:35 90 09/05/20 02:17 92 H 92 H 20 91 09/05/20 00:05 09/04/20 23:47 87 18 90 09/04/20 23:46 87 90 Pulse Ox 09/05/20 09:54 09/05/20 09:53 09/05/20 09:51 09/05/20 09:50 09/05/20 09:49 09/05/20 09:47 09/05/20 09:40 09/05/20 09:39 09/05/20 09:37 09/05/20 09:35 09/05/20 09:33 09/05/20 09:31 09/05/20 09:30 09/05/20 09:29 09/05/20 09:27 09/05/20 09:20 09/05/20 09:19 09/05/20 09:10 09/05/20 09:00 09/05/20 08:49 09/05/20 08:40 09/05/20 08:19 09/05/20 07:26 09/05/20 07:23 09/05/20 07:09 09/05/20 06:35 09/05/20 02:17 09/05/20 00:05 90 09/04/20 23:47 09/04/20 23:46 Laboratory Results 09/05/20 08:38 09/05/20 08:38 09/03/20 15:27 VBG pH 7.40 VBG pCO2 49 VBG pO2 35 VBG HCO3 30 VBG O2 Saturation 65.5 VBG Base Excess 3.8 Serological evaluation pending Diagnostic Findings Chest x-ray from today was independently reviewed there are persistent interstitial markings but there appears to be progression of the bilateral opacities since film from 09/03. Lung volumes remain low Coding Level of Care Code Critical Care 1st 30-74 mins Diagnoses Acute hypoxemic respiratory failure J96.01 Pneumonia J18.9 Laterality: unspecified laterality Lung location: unspecified part of lung Pneumonia type: due to unspecified organism Interstitial lung disease J84.9 Bronchiectasis J47.9 Time Spent (min) 89 Comment 22104 and 01233 (1) Pneumonia Laterality: unspecified laterality Lung location: unspecified part of lung Pneumonia type: due to unspecified organism Qualified Code(s): J18.9 - Pneumonia, unspecified organism
[2020-09-05] MEDS ORDERED: ALBUT/IPRATROP 3MG/0.5MG NEB 3 ML VIAL NEB PRN (11:55)
[2020-09-05 12:11] LABS: iSTAT Arterial Blood Gas HCO3 32 meg/L (19-24); iSTAT Arterial Blood Gas pCO2 70 mmHg (35-46); iSTAT Arterial Blood Gas pH 7.27 (7.35-7.45); iSTAT Arterial Blood Gas pO2 133 mmHg (80-95); iSTAT Carbon Dioxide 34 mmol/L (24-31); iSTAT FiO2 100 %; iSTAT Site L Radial
--- NOTE | 2020-09-05 12:17 | XRay Report ---
XR chest 1V portable CLINICAL HISTORY: post intubation, line placement COMPARISON STUDY: Chest radiograph performed earlier today. FINDINGS: The tip of the nasogastric tube projects over the distal stomach or proximal duodenum. Tip of endotracheal tube is 4.1 cm above the adelso. Tip of left subclavian central line projects over th e cavoatrial junction. There has been interval development of a moderate left pneumothorax with super ior pleural separation of 2.8 cm. There is no right pneumothorax. Interstitial thickening represents pulmonary fibrosis. Superimposed airspace opacities are noted. Cardiomediastinal silhouette is stable . IMPRESSION: 1. Moderate left pneumothorax. This finding was discussed with the nurse caring for the patient at ti me of dictation. 2. Satisfactory positioning of the endotracheal tube. 3. Tip of nasogastric tube projects over the pylorus or proximal duodenum. The tube could be withdraw n 2 cm. 4. Findings consistent with pulmonary fibrosis with superimposed airspace opacity suggestive of an in fectious process. ACT 112: Negative or not required by law. Electronically signed by: Darrell Fraser M.D. 09/05/2020 12:15 PM
--- NOTE | 2020-09-05 12:18 | Procedure Note ---
Procedure Note Date of Service September 05, 2020 CENTRAL LINE PROCEDURE NOTE: Procedure: Central Line Placement Provider: Demario Weeks MD Indication: Central Drug Administration, Poor Venous Access, Multiple Lab Draws Necessary, etc. Anesthesia: [5 mL lidocaine 1% Site: Left subclavian Verbal consent was obtained from the patient. Her respiratory status did not permit written consent at this time A time-out was completed verifying correct patient, procedure, site, positioning, and implants(s) or special equipment if applicable. Patients left infraclavicular fossa neck was cleansed and draped in the typical sterile fashion using Chloraprep. The superficial tissue was anesthetized using [] mL of 1% lidocaine without epinephrine. After adequate anesthetization was achieved, the left subclavian vein was cannulated using an introducer needle on a syringe. Good venous blood return was maintained prior to removal of syringe from introducer needle. Using Seldinger Technique, a guide wire was advanced through the introducer needle without resistance. The introducer needle was removed. A small incision was made in penetrating fashion at the guide wire insertion site utilizing an 11 blade scalpel. The dilator was advanced to the vessel without resistance. The dilator was exchanged for the triple lumen catheter which was advanced into the vessel without resistance. The guide wire was removed intact from the catheter without issue. Claves were placed on each catheter tip with confirmation of good blood flow from each lumen. Each port was easily flushed with sterile saline. The catheter was placed at 20 cm and sut[address] in place. BioPatch was applied to the catheter and a sterile Tegaderm dressing was applied over the catheter with careful attention to sterility. Patient tolerated procedure well. No immediate complications were met. Post procedure x-ray was completed, placement was appropriate, however there appears to be a pneumothorax on the left. It is unclear if this was related to the procedure or the bronchoscopy or the intubation. See separate procedure note for chest tube Coding CPT Codes Tubes, Drains, and Vasc Access - Tubes, Drains, and Vasc Access: [id number] Place catheter in vein superior or inferior vena cava ([id number]) [facility] [place] Procedure Codes (Charges) Tubes, Drains, and Vasc Access Procedure 1: Tubes, Drains, and Vasc Access: [id number] Place catheter in vein superior or inferior vena cava
[2020-09-05] MEDS ORDERED: fentaNYL citrate 100 MCG/2 ML VIAL IV ONE (12:39)
[2020-09-05] MEDS ORDERED: MIDAZOLAM HCL 5 MG/ML VIAL IV ONE (12:39)
[2020-09-05] MEDS ORDERED: ETOMIDATE 2 MG/ML 20 ML VIAL IV ONE (12:39)
--- NOTE | 2020-09-05 12:47 | Procedure Note ---
Procedure Note Date of Service September 05, 2020 Procedure: Left-sided chest tube placement. Indication: Pneumothorax in patient on mechanical ventilation. Slubber Operator Dr. Weeks Estimated blood loss less than 10 mL Consent: Procedure was emergent. Patient intubated and on the ventilator and unable to provide consent. Anesthesia: Patient was maintained on fentanyl Versed and propofol infusions. 5 cc 1% lidocaine was used locally. Procedure: Patient was placed in a semirecumbent position. The mid axillary line on the left lateral to the nipple was cleaned and draped using chlorhexidine. A sterile field was established. Using an 18-gauge finder needle, the skin and subcutaneous tissues were anesthetized with lidocaine. I w as able to aspirate air when the needle passed over the rib consistent with diagnosis of pneumothorax. The needle was left in the pleural space and the syringe removed. A wire was passed through the needle into the pleural space and the needle then removed and threaded off the wire. A skin ale was made with the scalpel. Serial dilators were used over the wire to dilate the tract. A 16 [place] Thal-Quick chest tube was then threaded over the wire into the pleural space. It was attached to a previously prepared Pleur-evac system and significant air leak was entertained. The tube was secured with 2-0 silk sutures and a petroleum impregnated gauze and dressing were applied. Post procedure chest x-ray is pending. The patient tolerated the procedure well. Coding CPT Codes Pulmonary/Thoracic - Pulmonary and Thoracic: 50240 Tube thoracostomy ([id number]) [facility] [place] (Charges) Pulmonary/Thoracic Procedure 1: Pulmonary and Thoracic: 18436 Tube thoracostomy
--- NOTE | 2020-09-05 12:52 | Procedure Note ---
Procedure Note Date of Service September 05, 2020 ARTERIAL LINE PROCEDURE NOTE: Procedure: Arterial Line Placement Provider: Demario Weeks MD Indication: Monitoring on Pressors Anesthesia: None Verbal consent was obtained from the patient prior to intubation. She was unable to sign due to severe respiratory failure A time-out was completed verifying correct patient, procedure, site, positioning, and implant(s) or special equipment if applicable. Allens test was performed to ensure adequate perfusion. Patients left wrist was prepped and draped in the usual sterile fashion. Ultrasound guidance was used to aid needle placement. A 20g Arrow arterial line was introduced into the left radial artery. Catheter was threaded, and the needle was removed with appropriate blood return. Good waveform was observed. The patient tolerated the procedure well. [ Blood Loss: Minimal Complications: None Coding CPT Codes Tubes, Drains, and Vasc Access - Tubes, Drains, and Vasc Access: [id number] Insertion Catheter, Artery ([id number]) [facility] Procedure Codes (Charges) Tubes, Drains, and Vasc Access Procedure 1: Tubes, Drains, and Vasc Access: [id number] Insertion Catheter, Artery
[2020-09-05 13:29] LABS: Eosinophil Body Fluid Man 2 %; Fluid Mono/Macrophage 24 %; Lymphocyte Body Fluid Man 2 %; Neutrophil Body Fluid Man 72 %
--- NOTE | 2020-09-05 13:46 | XRay Report ---
XR chest 1V portable CLINICAL HISTORY: chest tube placement COMPARISON STUDY: 09/05/2020 FINDINGS: The cardiac and mediastinal contours remain stable. There is endotracheal tube 20 mm above the adelso. There is a nasogastric tube which passes into the stomach. There is a left subclavian joycelyn tral venous catheter unchanged in position. There is been interval placement of a left-sided chest tu be the tip of which is directed towards the pleural apex. There is been interval evacuation of left p neumothorax with a trace residual. There are persistent extensive bilateral pulmonary airspace opacit ies superimposed on chronic interstitial lung disease.[ IMPRESSION: 1. Interval insertion of a left-sided chest tube. Trace residual pneumothorax. 2. Persistent interstitial pulmonary fibrosis with superimposed bilateral pulmonary airspace opacitie s ACT 112: Negative or not required by law. Electronically signed by: Sylvain Carver M.D. 09/05/2020 1:45 PM
[2020-09-05 13:56] LABS: iSTAT Arterial Blood Gas HCO3 32 meg/L (19-24); iSTAT Arterial Blood Gas pCO2 59 mmHg (35-46); iSTAT Arterial Blood Gas pH 7.35 (7.35-7.45); iSTAT Arterial Blood Gas pO2 110 mmHg (80-95); iSTAT Carbon Dioxide 34 mmol/L (24-31); iSTAT FiO2 80 %; iSTAT Site Art Line
[2020-09-05] MEDS: methylPREDNISolone 125 MG in SYRINGE 0 ML IV SCH ×2 (14:17→22:22)
[2020-09-05] MEDS ORDERED: AZITHROMYCIN 250 MG/6.25 ML UDP PO SCH (14:45)
[2020-09-05] MEDS ORDERED: ICU PROTOCOL FOR HYPERGLYCEMIA PRN (14:46)
[2020-09-05] MEDS ORDERED: NOREPINEPHRINE/D5W 8 MG/508 ML BAG IV SCH (16:15)
[2020-09-05] MEDS ORDERED: POTASSIUM CHLORIDE / WTR 10 MEQ/100 ML PLCT IV STA (17:55)
[2020-09-05] MEDS: cefTRIAXone SODIUM 1,000 MG in DEXTROSE 5% 50 ML IV SCH (18:10)
[2020-09-05] MEDS ORDERED: POTASSIUM CHLORIDE 20 MEQ/15 ML UDC PO STA (19:52)
[2020-09-05] MEDS: POTASSIUM CHLORIDE / WTR 10 MEQ/100 ML PLCT IV SCH ×2 (20:38→21:54)
[2020-09-05] MEDS: INSULIN GLARGINE SOLOSTAR 100 UNITS/ML 3 ML PEN SC SCH (20:38)
[2020-09-05] MEDS: ICU PROTOCOL FOR HYPERGLYCEMIA SCH (20:42)
[2020-09-05] MEDS: INSULIN ASPART 100 UNITS/ML 3 ML PEN SC SCH (23:19)
[2020-09-06] MEDS: SULFA IV SCH (03:38)
[2020-09-06] MEDS: TRIMETH IV SCH (03:38)
[2020-09-06] MEDS: DEXTROSE 5% IV SCH (03:38)
[2020-09-06 05:06] LABS: Albumin Globulin Ratio 0.6 (0.9-2); Albumin Level 2.5 gm/dl (3.4-5.0); BUN Creatinine Ratio 13.8 (10-20); Bilirubin,Total 0.3 mg/dl (0.2-1); Calcium 8.4 mg/dl (8.5-10.1); Est GFR (African American) 115.3; Est GFR (Non-African American) 99.5; Globulin 4.1 gm/dl (2.5-4.0); Magnesium 2.4 mg/dl (1.8-2.4); Phosphorus 2.5 mg/dl (2.5-4.9); Potassium 4.8 mmol/L (3.5-5.1); Total Protein 6.6 gm/dl (6.4-8.2)
[2020-09-06] MEDS: methylPREDNISolone 125 MG in SYRINGE 0 ML IV SCH (05:41)
[2020-09-06] MEDS: INSULIN ASPART 100 UNITS/ML 3 ML PEN SC SCH (05:44)
[2020-09-06 05:46] LABS: iSTAT Art Bld Gas pCO2 Correct 49 mmHg (35-46); iSTAT Art Bld Gas pH Corrected 7.438 (7.35-7.45); iSTAT Arterial Blood Gas HCO3 33 meg/L (19-24); iSTAT Arterial Blood Gas pCO2 50 mmHg (35-46); iSTAT Arterial Blood Gas pH 7.44 (7.35-7.45); iSTAT Arterial Blood Gas pO2 120 mmHg (80-95); iSTAT Arterial Blood Gas pO2 C 119; iSTAT Carbon Dioxide 35 mmol/L (24-31); iSTAT FiO2 65 %; iSTAT Hematocrit 35 % (37-47); iSTAT Hemoglobin 11.9 g/dl (12.0-16.0); iSTAT Potassium 4.6 mmol/L (3.3-5.0); iSTAT Site Art Line; iSTAT Sodium 131 mmol/L (135-144)
[2020-09-06] MEDS ORDERED: ICU ELECTROLYTE REPLACEMENT PROTOCOL SCH (06:00)
[2020-09-06] MEDS: OMEGA-3 (PURIFIED FISH OIL) 1 GM CAP PO SCH (06:59)
[2020-09-06 07:02] LABS: Hematocrit (blood only) 36.6 % (37-47); Hemoglobin 11.6 g/dL (12.0-16.0); Immature Granulocytes # (auto) 0.03 K/uL (0.00-0.02); Immature Granulocytes % (auto) 0.3 %; Lymphocytes # (auto) 0.65 K/uL (1.2-3.4); Lymphocytes % (auto) 7.2 %; Mean Corpuscular Hemoglobin 27.9 pg (25-34); Mean Platelet Volume 9.5 fL (7.4-10.4); Monocytes # (auto) 0.22 K/uL (0.11-0.59); Monocytes % (auto) 2.4 %; Neutrophils % (auto) 90.1 %; Platelet Count 259 K/uL (130-400); RDW Coefficient of Variation 14.1 % (11.5-14.5); RDW Standard Deviation 45.4 fL (36.4-46.3); Red Blood Count 4.16 M/uL (4.2-5.4)
[2020-09-06 07:29] LABS: Mean Corpuscular Hgb Conc 31.7 g/dL (32-36)
--- NOTE | 2020-09-06 07:34 | XRay Report ---
SINGLE VIEW CHEST CLINICAL HISTORY: Respiratory failure. Pneumothorax. FINDINGS: An AP, portable, upright chest radiograph is compared to study dated 09/05/2020 and correla shantell with chest CT dated 09/03/2020. The examination is degraded by portable technique and patient rot ation. Endotracheal an enteric tubes are unchanged in position, as is a left subclavian central venou s catheter. The cardiomediastinal silhouette is unremarkable. There are low lung volumes. Changes of chronic interstitial lung disease with superimposed multifocal airspace consolidation has not signifi cant change from yesterday. There is bilateral bronchiectasis. No large pleural effusion is seen. A c hest tube at the left apex is unchanged in position. There is a small residual left apical pneumothor ax. The skeletal structures are osteopenic. The bony thorax is grossly intact. IMPRESSION: 1. Stable lines and tubes. 2. There is a small residual left apical pneumothorax. 3. Findings of chronic interstitial lung disease with superimposed multifocal airspace consolidation are unchanged. ACT 112: Negative or not required by law. Electronically signed by: Eric Purcell M.D. 09/06/2020 7:32 AM
[2020-09-06] MEDS: THYROID 90 MG PO SCH (08:44)
[2020-09-06] MEDS: INSULIN GLARGINE SOLOSTAR 100 UNITS/ML 3 ML PEN SC SCH (08:45)
[2020-09-06] MEDS: TRIAMCINOLONE ACET NASAL SPRAY 10.8ML BTL SCH (08:45)
[2020-09-06] MEDS: ICU PROTOCOL FOR HYPERGLYCEMIA SCH (08:46)
[2020-09-06] MEDS: propofoL 1,000 MG/100 ML VIAL IV SCH (09:17)
--- NOTE | 2020-09-06 09:22 | Hospitalist Progress Note ---
Date of Service September 06, 2020 Assessment & Plan Admission and Anticipated Discharge Date Admission Date: September 03, 2020 Results & Data Results & Data ([facility]) Vital Signs (Past 12 Hours) Vital Signs Temp Pulse Resp BP Pulse Ox 09/06/20 06:25 62 95/56 L 90 09/06/20 05:25 63 96/56 L 89 L 09/06/20 05:08 30 H 09/06/20 04:25 36.9 C 62 111/59 L 94 09/06/20 03:48 63 30 H 93 09/06/20 03:25 65 116/63 95 09/06/20 02:25 67 115/63 94 09/06/20 01:25 68 115/64 94 09/06/20 00:25 36.8 C 68 113/61 94 09/06/20 00:15 70 30 H 95 09/05/20 23:25 69 112/64 95 09/05/20 22:25 71 118/66 95 09/05/20 22:10 72 118/68 95 09/05/20 22:01 73 95 09/05/20 21:25 73 131/73 95 PG Care Time/CCT Total # of Minutes Spent Total Time Spent with Patient: Total time spent is greater than 50% in coordination of care (as documented) at patient's floor/unit and/or counseling patient: Coding
--- NOTE | 2020-09-06 09:47 | Critical Care Progress Note ---
Date of Service September 06, 2020 Assessment & Plan (1) Acute hypoxemic respiratory failure: (2) Pneumonia: (3) Interstitial lung disease: (4) Bronchiectasis: Impression: 65-year-old female with interstitial lung disease which has not been completely characterized admitted now with an exacerbation and progressive groundglass opacities. Recommendations: 1. Neuro: Continue sedation with fentanyl, Versed, and propofol as needed. 2. Pulmonary: Hypoxemic respiratory failure with diffuse pulmonary infiltrates in the setting of severe fibrotic lung disease which has not been fully characterized. The current pattern is not consistent with UIP and the patient has never had a histopathologic diagnosis performed. The only serologies she has had done were an anti-CCP which was negative, and IgE level which was markedly elevated and a negative aldolase. She had not gone bronchoscopy previously and no lung biopsy had been performed. There was discussion about starting antifibrotic agents including pirfenidone and Ofev however these were never initiated. She does have a family history of pulmonary fibrosis and states that her sister due to lung disease however her sister also had cystic fibrosis so it is unclear what her ultimate respiratory pathology was. Her PFTs showed severe restrictive lung disease with a total lung capacity of less than 50%. Bronchoscopy yesterday was consistent with alveolar hemorrhage. She has been initiated on antibiotics pending bronchoalveolar lavage culture and Solu-Medrol 125 mg every 8 hours. We will continue the high- dose steroids for 3-5 days and then start to taper her steroids. Her urinalysis did not show any significant hematuria. Serological evaluation is pending. We will continue antibiotics to treat potential underlying infection pending bronchoscopic results. If she fails to improve on high-dose steroids, would consider transfer to a higher level of care for potential plasmapheresis and possible VV ECMO. We will obtain an ABG. Her prognosis from pulmonary standp oint is very poor. She may require tracheostomy in the near future. Lastly, she does appear to have an iatrogenic pneumothorax from possible placement of a subclavian catheter. Left chest tube is in place. Minimal air leak is noted. We will leave the chest tube to suction today. 3. Cardiovascular: The patient is hemodynamically stable at this point time. We will continue to monitor. 4. GI: Her nutritional situation is a bit complicated as she has a history of allergies to grain products. We are working with the dietitian on finding the proper tube feed formula. I have started her on Protonix daily given her high dose steroid requirements. 5. Renal: Electrolyte replacement protocols will be initiated. Follow kidney function. If she develops an active urinary sediment, will have low threshold for involving nephrology or rheumatology. 6. ID: Patient is currently day #3 Bactrim, Rocephin, and azithromycin. We will continue antibiotics for now. She has never had sputum cultures performed previously so it is unclear that she is colonized with resistant organisms although it certainly a possibility. If her silver stains come back negative, the Bactrim can be discontinued. Covid testing was negative on admission. Bio fire also failed to show a significant organism. 7. Endocrine: We will institute glycemic control protocol as the patient is on high-dose steroids. We will have a low threshold for an insulin drip. 8. Heme-onc: Her white count is improved today. Hemoglobin with slight decreased 11.6 from 12.8 yesterday. Platelet count is normal. 9. Prophylaxis: We will hold Lovenox given alveolar hemorrhage and placed on SCDs. CRITICAL CARE TIME - I have personally spent 53 minutes of critical care time in the direct management of this patient. This is a life/limb threatening event. This includes time spent evaluating patient, direct bedside care, chart review, placing orders, interpretation of diagnostic studies, discussion with consultants, loly castle, and family members, as well as other required patient management activities. This time is exclusive of all separately billable procedures, and teaching time and separate from and in addition to any other critical care service time. Admission and Anticipated Discharge Date Admission Date: September 03, 2020 Subjective Patient is intubated and sedated. She is unable to participate in review of systems. No significant overnight events. She is requiring Versed, propofol and fentanyl for sedation and pain control. No significant air leak from the left-sided chest tube this morning. She is not requiring any vasopressors. Review of Systems Review of Systems: Unobtainable due to endotracheal tube and Unobtainable due to reduced consciousness Physical Exam Constitutional: + mechanically ventilated Intubated and sedated Neck: trachea midline, no thyromegaly Respiratory: normal respiratory effort Bilateral crackles Cardiovascular: RRR, no murmur, no edema Gastrointestinal (Abdomen): normal bowel sounds, soft, nontender, no hepatosplenomegaly Musculoskeletal: Extremities: extremities normal to inspection Skin: no rashes, warm and dry Neurologic: Nonfocal exam Lymphatic: no cervical lymphadenopathy Results & Data Results & Data ([facility]) Vital Signs (Past 12 Hours) Vital Signs Temp Pulse Resp BP Pulse Ox 09/06/20 06:25 62 95/56 L 90 09/06/20 05:25 63 96/56 L 89 L 09/06/20 05:08 30 H 09/06/20 04:25 98.4 F 62 111/59 L 94 09/06/20 03:48 63 30 H 93 09/06/20 03:25 65 116/63 95 09/06/20 02:25 67 115/63 94 09/06/20 01:25 68 115/64 94 09/06/20 00:25 98.2 F 68 113/61 94 09/06/20 00:15 70 30 H 95 09/05/20 23:25 69 112/64 95 09/05/20 22:25 71 118/66 95 09/05/20 22:10 72 118/68 95 09/05/20 22:01 73 95 I reviewed the vital signs, labs and imaging Coding Level of Care Code Critical Care 1st 30-74 mins Diagnoses Acute hypoxemic respiratory failure J96.01 Pneumonia J18.9 Laterality: unspecified laterality Lung location: unspecified part of lung Pneumonia type: due to unspecified organism Interstitial lung disease J84.9 Bronchiectasis J47.9 Time Spent (min) 53 (1) Pneumonia Laterality: unspecified laterality Lung location: unspecified part of lung Pneumonia type: due to unspecified organism Qualified Code(s): J18.9 - Pneumonia, unspecified organism
[2020-09-06 10:20] LABS: iSTAT Arterial Blood Gas HCO3 33 meg/L (19-24); iSTAT Arterial Blood Gas pCO2 57 mmHg (35-46); iSTAT Arterial Blood Gas pH 7.37 (7.35-7.45); iSTAT Arterial Blood Gas pO2 68 mmHg (80-95); iSTAT Carbon Dioxide 34 mmol/L (24-31); iSTAT FiO2 60 %; iSTAT Site Art Line
--- NOTE | 2020-09-06 10:33 | Discharge Summary ---
Date of Service September 06, 2020 Admission HPI Per Admitting Provider Patient is a 65-year-old female with a past medical history of chronic idiopathic urticaria, idiopathic pulmonary fibrosis, usual interstitial pneumonitis, allergic rhinitis, diabetes mellitus, fatty liver, hyperlipidemia, hypothyroidism, NIA who presents for evaluation of hypoxia and shortness of breath. The patient reports that her symptoms began Tuesday night after her CPAP broke. The next morning she woke up having increased shortness of breath, and dyspnea on exertion. She was not able to get her CPAP replaced until Tuesday of this week and endorsed worsening of her symptoms. Today the patient contacted her training and development coordinator who advised her to obtain a chest x-ray, after chest x-ray, she reported experiencing increasing shortness of breath so she proceeded to the emergency department for further evaluation. In the emergency department she became tachypneic and tachycardic with saturations dropping into the 80s, requiring 5 L of oxygen to obtain notable saturations currently she is doing well on 2 L. Patient denies any recent history of Covid exposures, fevers, however states she never gets a fever, denies nausea, vomiting, diarrhea, chest pain, chest pressure, leg swelling, other concerning constitutional symptoms. She did endorse being incredibly chilly today. In the emergency department routine labs were obtained CBC demonstrating a white count of 12.76 with a neutrophil predominance, D-dimer of 650, VBG 7.4 0/49/35/30, Chem-7 was within normal limits, glucose of 134 AST and ALT within normal limits, pro-Lopez negative, urine demonstrating 4+ ketones, Covid negative flu negative. Blood cultures were obtained and are pending chest x-ray was obtained demonstrating progression of pulmonary fibrosis since chest radiograph on February 20, 2019, chest CTA was negative for pulmonary embolus, demonstrating significant progression of diffuse groundglass airspace opacities most pronounced in the lower lung zones, concerning for superimposed acute pneumonitis on the background of chronic fibrotic changes. A viral pneumonia would be a diagnosis of exclusion. Interval progression of mediastinal and bilateral hilar lymphadenopathy. The patient will be admitted for further evaluation and management of acute acute hypoxic respiratory failure secondary to worsening of her idiopathic pulmonary fibrosis with a superimposed pneumonia. Primary Care Provider: Tray Doherty MD Admission Exam Per Admitting Provider General: In no acute distress HEENT: Normocephalic atraumatic Neck: Normal to visual inspection, trachea midline Cardiac: Regular rate and rhythm, normal S1, normal S2, negative pedal edema, negative calf tenderness, I did not appreciate any significant murmurs rubs or gallops Respiratory: Shallow breathing otherwise clear to auscultation bilaterally with symmetrical chest expansion, questionable increased work of breathing, I did not appreciate any significant wheezes, rales, rhonchi GI: Soft, nontender, nondistended, bowel sounds present in all 4 quadrants MSK: Moves all extremities Neuro: Oriented x4 Psych: Cooperative with the interview, however a bit anxious, perseverating on her CPAP, chest x-ray, and infection a long time ago. Principal Diagnosis Acute hypoxemic respiratory failure with diffuse pulmonary infiltrates in the setting of severe fibrotic lung disease with progressive ground glass opacities Discharge Exam Constitutional + altered mental status (sedated and intubated on ventilator) and cooperative; no acute distress and not combative Eyes + anicteric sclerae and PERRL; no eyelid abnormality ENMT Ears: no hearing impairment ET tube on ventilator Neck trachea midline Respiratory + uses accessory muscles and + tachypneic; no respiratory distress, no labored breathing and no audible wheezes Auscultation: + crackles (bilateral); no wheezes coarse breath sounds L chest tube to suction. small air leak noted Cardiovascular Rate/Rhythm: regular rate and regular rhythm Heart Sounds: no murmur Extremities: no edema Chest (Breasts) Additional Comments: central line Gastrointestinal (Abdomen) Inspection/Auscultation: normal bowel sounds Percussion/Palpation: abdomen nontender Musculoskeletal Head/Neck/Chest: normocephalic and head atraumatic Skin Arterial line warm, dry Neurologic moves all extremities and awake Psychiatric Orientation: + not alert and + not oriented x 3 Genitourinary luis draining clear/yellow urin Lymphatic no cervical or axillary lymphadenopathy Discharge Data Allergies Allergy/AdvReac Type Severity Reaction Status Date / Time barley Allergy Verified 09/05/20 12:30 carrot Allergy Verified 09/05/20 12:37 corn Allergy Verified 09/05/20 12:30 eggplant Allergy Verified 09/05/20 12:37 gluten Allergy Verified 09/05/20 12:30 pollen extracts Allergy Verified 09/05/20 12:30 potato Allergy Verified 09/05/20 12:38 rice Allergy Verified 09/05/20 12:30 salmon oil Allergy Verified 09/05/20 12:30 walnut Allergy Verified 09/05/20 12:30 watermelon Allergy Verified 09/05/20 12:37 wheat Allergy Verified 09/05/20 10:11 GRAINS Allergy Intermediate hives Uncoded 09/03/20 19:22 Consultations 09/03/20 19:08 ED Decision to Admit Stat 09/03/20 20:21 Consult Pulmonology Routine Ordered Studies 09/03/20 15:01 CT angio chest PE protocol Stat Hospital Course (1) Acute hypoxemic respiratory failure: Patient is a 65-year-old female with a past medical history of chronic idiopathic urticaria, idiopathic pulmonary fibrosis, usual interstitial pneumonitis, allergic rhinitis, diabetes mellitus, fatty liver, hyperlipidemia, hypo. thyroidism, NIA who presents for evaluation of hypoxia and shortness of breath, malaise, chills. PFTs showed severe restrictive lung disease with a total lung capacity of less than 50%. On Ofev for ILD. Acute hypoxemic respiratory failure secondary to worsening idiopathic pulmonary fibrosis with a superimposed pneumonia complicated by unusual interstitial pneumonitis, bronchiectasis. WORSENING * COVID negative, flu negative, biofire negative * Ddimer elevated. CTA negative for PE * CT with worsening fibrosis and ?superimposed infection. WBC with left shift, but are improving * Pulmonary consulted * Placed on Ceftriaxone, Azithromycin * ESR 37, CRP 10.6, LDH 312 -- ? for Pneumocystis infection and added Bactrim 09/04 * Worsening respiratory distress with fever, tachycardia, tachypneic and requ ired transfer to ICU on 09/05 for intubation/bronchoscopy with increased O2 requirement sats in 50-60% on 5L not responsive to BiPAP at max settings * Bronch with lingular alveolar hemorrhage. Also had central and arterial lines placed and was placed on * Chest tube inserted for pneumothorax with improvement on CXR . Small air leak noted * Prednisone transitioned to Methylprednisolone Q8H IV * --> Additional labs ordered for ILD but possible Churg-Ann with bowel resection. Has elevated IgE in past * Sputum culture normal valentina * Bronch with light normal valentina, no hyphae/yeast. Others pending * ABGs with some improvement but discussion with Leadlighter with recommendations for transfer to tertiary facility for possible ECMO (not candidate per discussion with Dr Ramires given prior PFT with total lung capacity <50%) but possible plasmapheresis/additional support and possible need for tracheostomy in the future if unable to wean off ventilator. Prognosis is guarded given reduced lung capacity. * Sats 92% on ventilator with rate 26, FiO2 60%, PEEP 8. * On Fentanyl, propofol currently. Weaned off Levophed morning 09/06 as previously on for BP support * Updated son and on phone prior to arranging transfer Diabetes mellitus * Not on medications outpatient. A1c 6.5 * Pharmacy on consult as patient getting high dose steroids Hypothyroidism * TSH 1.71 * Continue pork thyroid 90 mg Allergic rhinitis * Follows locally with Dr. Soriano. On nintedanib outpatient as per Dr. 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 Takes special fiber supplement to help with diarrhea DVT Prophylaxis * Lovenox SQ -- on hold as bronch with evidence of alveolar hemorrhage Dispo: [facility] plasmapheresis, additional respiratory support/intervention. possibility for need for tracheostomy if unable to be weaned from ventilator Please call son Deion [phone] once at [facility] for update. (2) IPF (idiopathic pulmonary fibrosis): (3) UIP (usual interstitial pneumonitis): (4) Pneumonia: (5) Allergic rhinitis: (6) Diabetes mellitus: (7) Hypothyroidism: (8) Interstitial lung disease: (9) Obstructive sleep apnea: Total Time Total Time Spent Total Time Spent (In Minutes): 120 Discharge Plan Discharge Items Patient Disposition: Transfer Acute Care Hospital Reason For Visit: IPF/CAP Discharge Diagnosis: Acute hypoxemic respiratory failure with diffuse pulmonary infiltrates in the setting of severe fibrotic lung disease with progressive ground glass opacities Condition on Discharge: Good Goals: You have been hospitalized for an urgent problem which required surgery. During your stay at [facility], we have made an effort to correct the problem that brought you to the hospital while keeping you as comfortable as possible. Surgery and medications were used to bring your condition under control and your discharge instructions will include directions for any medications you should take after leaving the hospital. Please make sure to follow the advice of your surgeon regarding follow up with the surgeon and with your primary care provider. Activity: As commented below Non-emergency contact: Primary Care Provider Call non-emergency contact if: you have any medication questions Follow-up/Referrals: Tray Doherty MD [Primary Care Provider] - Diet: Nothing by Mouth Addtl Attending Provider Instructions: Transfer to [facility] Management per accepting facility. Pending Studies at Discharge: Yes Studies:: Rheumatoid Factor, Proteinase 3, Anti-neutrophil, Tameka-1, SS-A/Ro antibody, SS-B/La antibody, Maria antibody, HEALTH CARE LEGAL ASSISTANT antibody, Scl-70 scleroderma ab, ddDNA ab, anti-centromere ab, glomerular base membrane ab, resp virus cx, legionella urine ag Stand-Alone Forms: My [facility] Skilled Items Patient informed of condition?: No DNR: No Discharge Level of Care: Other Communicable Disease: No Discharge Prognosis: Deteriorating Lines: [facility] Urinary Catheter: Yes Medications and DC Order Prescriptions: Continued albuterol sulfate [ProAir HFA] 90 mcg/actuation HFA aerosol inhaler 1 puffs INH Q6H PRN (Reason: shortness of breath or wheezing) Qty: 8.5 RF: 3 thyroid (pork) 90 mg tablet 90 mg PO DAILY Qty: 90 RF: 3 montelukast 10 mg tablet 10 mg PO QPM Qty: 90 RF: 3 Breo Ellipta 200-25 mcg/dose blister with device 1 inh INH DAILY Qty: 90 RF: 3 ipratropium-albuterol 0.5 mg-3 mg(2.5 mg base)/3 mL solution for nebulization 3 ml INH Q4H PRN (Reason: wheezing) Qty: 180 RF: 2 doxycycline hyclate 100 mg capsule 100 mg PO BID Qty: 20 RF: 0 prednisone 10 mg tablet See Rx Instructions PO DAILY Qty: 20 RF: 0 alpha lipoic acid 300 mg capsule 300 mg PO DAILY RF: 0 calcium carbonate 600 mg calcium (1,500 mg) tablet 600 mg PO DAILY RF: 0 omega-3 acid ethyl esters 1 gram capsule 1 cap PO DAILY RF: 0 coenzyme Q10 100 mg capsule 100 mg PO DAILY RF: 0 patricio zirz-xikbqtlc-kuiukfjmm ac 1,000 mg capsule 1 cap PO DAILY RF: 0 calcium polycarbophil 625 mg tablet 650 mg PO DAILY RF: 0 guaifenesin 600 mg tablet extended release 12hr 600 mg PO DAILY RF: 0 turmeric 400 mg capsule 400 mg PO DAILY RF: 0 glucosamine sulfate [Glucosamine] 500 mg tablet 500 mg PO BID RF: 0 magnesium 200 mg tablet 200 mg PO DAILY RF: 0 cholecalciferol (vitamin D3) 2,000 unit capsule 4,000 units PO DAILY RF: 0 triamcinolone acetonide 55 mcg aerosol,spray 2 sprays intranasal DAILY RF: 0 Ofev 150 mg capsule 150 mg PO Q12H Qty: 60 RF: 2 lysine HCl 500 mg Capsule 500 mg PO DAILY RF: 0 Zyrtec 10 mg Tablet,Disintegrating 10 mg PO DAILY RF: 0 sodium chloride 7 % solution for nebulization 1 ml INHALATION TID RF: 0 glutamine 500 mg Capsule 500 mg PO DAILY RF: 0 Discharge Orders: Discharge Order (Routine); Ordered 09/06/20 Ordered By: Sonja Rosario/Other Patient Handouts: Managing Diabetes: The A1C Test Admission Data Admit Date/Time: 09/03/20 20:21 Attending Provider: Ced Canales Admit Provider: Chucky Bettencourt I. Primary Care Provider: Tray Doherty Other Providers: Dana Bettencourt Gregory Other Interventions: Discharge Summary Assessment (RN) Last Done: 09/06/20 12:00 Supervising Physician Co-Signing Physician Notes D/W APC Sonja Giraldo Patient seen and examined at bedside. I reviewed above note and agree with it. I discussed discharge plan with APC. Patient was ventilated. Patient will be transferred to tertiary center as may require ECMO Coding Level of Care Code D/C Day Management >30 mins Diagnoses Acute hypoxemic respiratory failure J96.01 IPF (idiopathic pulmonary fibrosis) J84.112 UIP (usual interstitial pneumonitis) J84.112 Pneumonia J18.9 Laterality: unspecified laterality Lung location: unspecified part of lung Pneumonia type: due to unspecified organism Allergic rhinitis J30.9 Diabetes mellitus E11.9 Hypothyroidism E03.9 Interstitial lung disease J84.9 Obstructive sleep apnea G47.33
[2020-09-06] MEDS ORDERED: PANTOprazole 40 MG in SYRINGE 0 ML IV SCH (11:00)
[2020-09-06] MEDS: fentaNYL DRIP 1,250 MCG/250 ML BAG IV SCH (11:43)
[2020-09-10 01:32] LABS: Anti-Centromere Ab <1.0 NEG AI (<1.0 NEG); Anti-Neutrophil Antibody NONE DETECTED (NONE DETECTED); Anti-SS-A <1.0 NEG AI (<1.0 NEG); Anti-SS-B <1.0 NEG AI (<1.0 NEG); Anti-dsDNA Recombinant <1 IU/mL; JO 1 Antibody <1.0 NEG AI (<1.0 NEG); Proteinase-3 Ab <1.0 AI; RNP Antibody <1.0 NEG AI (<1.0 NEG); Rheumatoid Factor <14 IU/mL (<14); Scleroderma Anti Scl-70 Ab <1.0 NEG AI (<1.0 NEG); Sm Antibody <1.0 NEG AI (<1.0 NEG)
[2020-09-10 20:37] LABS: Source BA LAV LINGULA
== END 2020-09-06 12:40 | disposition short-term general hospital (02) | DRG 208 ==
LOC: ED 14:33 → 3W 20:21 → SUATTDRO 20:21 → 3W 22:55 → 1E 09-05 08:18